=== PATIENT | male | born 1935 | race Caucasian/White ===

== ENCOUNTER 2016-04-11 05:12 | Inpatient (IN) | payer MEDICARE, OTHER ==
[2016-04-11] VITALS (8 sets, daily range): BP systolic 123–159; BP diastolic 74–85; PULSE 72–87; RESP 18–20; Ht 170.2 cm; Wt 71.4 kg
[~2016-04-11] VITALS: Ht 170.2 cm; Wt 71.4 kg
[~2016-04-11 05:12] MED LIST: AMLO-218; BENA40TA41; METO-103; SOLI10TA5
[2016-04-11] MEDS ORDERED: ENALAPRILAT 1.25 MG INJ IV ONE (05:30)
[2016-04-11] MEDS ORDERED: NITROGLYCERIN 50 MG/D5W (PMX) 250 ML IV STA (05:39)
[2016-04-11 05:42] LABS: AADO2 Arterial 203.7 mmHg (7.0-24.0); Allen Test ACCEPTAB; Arterial Base Excess -0.8 mmol/L (-3.0-3); Arterial COHb 0.2 % (0.0-3.0); Arterial Fraction of Oxyhgb 97.4 % (93.0-99.0); Arterial HCO3 24.7 mmol/L (22.0-26.0); Arterial MetHb 0.3 % (0.0-1.5); Arterial Total Hemglobin 15.9 g/dl (12.0-18.0); Blood Gas IEPAP 18/5; MODE MASK - BIPAP
--- NOTE | 2016-04-11 05:49 | RADRPT ---
PROCEDURE: CHEST - 1 VIEW CLINICAL INDICATION: 80-year-old male with chest pain. TECHNIQUE: A single frontal AP view of the chest was performed portably. The images were reviewed on a PACS workstation. COMPARISON: None. FINDINGS: The cardiomediastinal silhouette is mildly enlarged. The thoracic aortic arch is calcified. There is mild pulmonary vascular congestion. There is elevation right hemidiaphragm. There is mild bibas ilar subsegmental atelectasis. There is no evidence for focal consolidation. There is no evidence f or pneumothorax. The osseous structures are intact. IMPRESSION: 1. Cardiomegaly. 2. Calcified thoracic aortic arch. 3. Mild pulmonary vascular congestion. 4. Mild bibasilar subsegmental atelectasis. .Sid Cobian MD, Date Time Electronically viewed and signed by .Sid Cobian MD, on 04/11/2016 05:48 .M/
[2016-04-11 05:58] LABS: BASOPHIL # 0.1 10^3/ul (0.0-0.1); BASOPHILS % 0.6 % (0.0-2.0); EOSINOPHILS # 0.2 10^3/ul (0.0-0.5); EOSINOPHILS % 2.9 % (0.0-7.0); HEMATOCRIT 45.1 % (42.0-52.0); HEMOGLOBIN 15.4 g/dl (14.0-18.0); LYMPHOCYTES % 23.7 % (15.0-51.0); MEAN CORPUSCULAR HEMOGLOBIN 32.5 pg (29.0-33.0); MEAN CORPUSCULAR HGB CONC 34.1 g/dl (32.0-37.0); MEAN CORPUSCULAR VOLUME 95.3 fl (82.0-101.0); MEAN PLATELET VOLUME 10.3 fl (7.4-10.4); MONOCYTE # 0.8 10^3/ul (0.3-0.9); MONOCYTES % 9.4 % (0.0-11.0); NEUTROPHIL # 5.4 10^3/ul (1.6-7.5); NEUTROPHILS % 63.4 % (39.0-77.0); PLATELET COUNT 168 10^3/UL (140-440); RED BLOOD COUNT 4.73 10^6/ul (4.70-6.10); RED CELL DISTRIBUTION WIDTH 14.6 % (11.5-14.5); UNCORRECTED WBC 8.5 10^3/ul (4.8-10.8); WHITE BLOOD COUNT 8.5 10^3/ul (4.8-10.8)
[2016-04-11] MEDS ORDERED: ONDANSETRON 4 MG INJ IV PRN ×2 (06:00→07:30)
[2016-04-11] MEDS ORDERED: ACETAMINOPHEN 325 MG TAB PO PRN ×2 (06:00→07:30)
[2016-04-11] MEDS ORDERED: NITROGLYCERIN 2% 1 GM OINT PKT TD ONE (06:00)
[2016-04-11 06:07] LABS: CONDITION 1; CREATININE 1.08 mg/dl (0.61-1.24); LH ANALYZER COMMENTS 1
--- NOTE | 2016-04-11 06:10 | ERA ---
ER Documentation Chief Complaint Date/Time DATE: 04/11/16 TIME: 06:06 Chief Complaint sob HPI This is an 80-year-old male who presents to the emergency room for evaluation of shortness of breath. This patient was brought in by ambulance. According to EMS this patient was 84% on room air for his oxygen level. The patient is on medications for high blood pressure however he states that he ran out of his medications 3 days ago. EMS did hear audible wheezing and rales in place the patient on a breathing treatment and brought the patient in for evaluation. The patient states he is feeling slightly better at this time, he denies any active chest pain. ROS All systems reviewed and are negative except as per history of present illness. Medications Home Meds Reported Medications Amlodipine Besylate* (Norvasc*) 10 Mg Tablet 08/16/10 Solifenacin* (Vesicare*) 10 Mg Tablet 10/10/09 Metoprolol Succinate (Toprol Xl) 50 Mg Tab.sr.24h 10/10/09 Benazepril Hcl* (Benazepril Hcl*) 40 Mg Tablet 10/10/09 Allergies Allergies: Coded Allergies: No Known Drug Allergies (Verified Allergy, Mild, 08/29/13) PMhx/Soc History of Surgery: Yes (brain surgery) Anesthesia Reaction: No Hx Respiratory Disorders: No Hx Cardiac Disorders: No Hx Psychiatric Problems: No Hx Miscellaneous Medical Probl: Yes (HTN, abdominal hernia, cva, inguinal hernia) Hx Alcohol Use: No Hx Substance Use: No Hx Tobacco Use: No Smoking Status: Never smoker Physical Exam Vitals Vital Signs Date Time Temp Pulse Resp B/P Pulse Ox O2 Delivery O2 Flow Rate FiO2 04/11/16 06:00 87 22 122/90 99 BIPAP 04/11/16 05:25 96 95 50 04/11/16 05:19 97.1 99 29 180/115 95 Physical Exam INITIAL VITAL SIGNS: Reviewed by me GENERAL: The patient is frail-appearing older gentleman, moderate respiratory distress HEENT: Pupils equal, round, and reactive to light. EOMI. There is no scleral icterus. NECK: C-spine is soft and supple, there is no meningismus. There is no cervical lymphadenopathy. LUNGS: Coarse breath sounds in all lung chapman rales auscultated in the upper and lower lobe HEART: Tachycardic, no murmurs, clicks, rubs or gallops. ABDOMEN: Reducible periumbilical hernia, accessory muscle use, soft, non-tender , non-distended. There are bowel sounds in all four quadrants. No rebound or guarding. EXTREMITIES: There is no peripheral cyanosis or edema. No focal swelling or erythema. NEUROLOGICAL: The patient moves all four extremities with 5/5 strength. Cranial nerves II - XII are intact. Normal gait. Alert and oriented SKIN: There is no apparent rash or petechiae. HEME/LYMPHATIC: There is no evidence of excessive bruising or lymphedema. PSYCHIATRIC: The patient does not appear anxious or depressed. Results 24 hrs Laboratory Tests Test 04/11/16 05:27 Arterial Blood HCO3 24.7mmol/L Arterial Blood Base Excess -0.8mmol/L Arterial Blood Oxygen Saturation 97.9mmHG Presley Test ACCEPTAB Arterial Blood Gas Puncture Site Right Radial Arterial Blood Carboxyhemoglobin 0.2% Arterial Blood Date Drawn 04/11/2016 5:35:56 AM Arterial Blood Methemoglobin 0.3% Arterial Blood pCO2 (Temp correct) 44.2mmhg Arterial Blood pH (Temp corrected) 7.366 Arterial Blood pO2 (Temp corrected) 103.1mmHG Blood Gas A-a O2 Differential 203.7mmHg Blood Gas Actual Respiration Rate 22 Blood Gas IPAP/EPAP Ratio 18/5 Blood Gas Modality MASK - BIPAP Blood Gas Notified Time 04/11/2016 5:41:27 AM Blood Gas Notified Whom MH Blood Gas Respiration Rate 18.0 Blood Gas Specimen Source Blood arterial Blood Gas Temperature 37.0C FiO2 50.0% Oxyhemoglobin Percent 97.4% Total Hemoglobin 15.9g/dl Current Medications Medications (Trade) Dose Ordered Sig/Robin Route PRN Reason Start Time Stop Time Status Last Admin Dose Admin Enalaprilat 0.625 mg 0.625 mg ONCE ONCE IV 04/11/16 05:30 04/11/16 05:31 DC 04/11/16 05:28 Nitroglycerin/ Dextrose (Nitroglycerin 50 Mg/D5W (Pmx)) 250 ml @ 6 mls/hr ONCE STAT IV 04/11/16 05:39 04/11/16 05:44 DC Nitroglycerin (Nitroglycerin 2% Oint) 0.5 inch ONCE ONCE TD 04/11/16 06:00 04/11/16 06:01 DC 04/11/16 05:58 Ondansetron HCl (Zofran Inj) 4 mg ER BRIDGE PRN IV NAUSEA AND/OR VOMITING 04/11/16 06:00 04/12/16 05:59 Acetaminophen (Tylenol Tab) 650 mg ER BRIDGE PRN PO MILD PAIN/FEVER 04/11/16 06:00 04/12/16 05:59 Procedures/MDM EKG: Rate/Rhythm: Sinus tachycardia QRS, ST, T-waves: [No changes consistent w/ acute ischemia] Impression: [No evidence of ischemia or arrhythmia] Chest X-ray 1V Interpreted by me: Soft Tissue: Pulmonary vascular congestion with pulmonary edema Bones: No acute abnormalities Mediastinum/Cardiac Silhouette/Lungs: [No acute abnormalities] This 80-year-old male presents to the ER for evaluation of shortness of breath. When I evaluated him this patient was tachypnea, tachycardic, and hypoxic with an oxygen level of 88% on room air. This patient was immediately placed on a BiPAP. He was given Vasotec, and Nitropaste was applied on this patient as he was hypertensive and hypoxic. The patient's x-ray does show pulmonary vascular congestion and edema. I reevaluated this patient after being on BiPAP for 30 minutes and his pulse ox is 100%. His blood pressure is 129/80 and he states he is feeling completely better at this time. This patient will be placed in for admission at this time for acute CHF with hypoxia and pulmonary edema. He will be admitted to her panel physician, Dr. Michelle Critical Care: Excluding all billable procedures Time: 33 minutes Treatments/Evaluations: Emergent and rapid respiratory assessment and management with continuous monitoring. Advanced airway equipment at the ready, while the patient's respiratory symptoms were stabilized. Departure Diagnosis: Primary Impression: Acute respiratory failure with hypoxia Additional Impression: Acute decompensated heart failure Condition: Serious JOSE ARMANDOLAYLA JOSHUA Apr 11, 2016 06:10
[2016-04-11 06:18] LABS: TROPONIN-I 0.043 ng/ml (0.00-0.12)
[2016-04-11 07:09] LABS: INR 1.13; PROTIME 14.5 Sec (12.2-14.2); PT RATIO 1.1
[2016-04-11 07:10] LABS: PARTIAL THROMBOPLASTIN TIME 25.1 Sec (25.0-35.0)
[2016-04-11] MEDS ORDERED: BENA40TA41 PO (07:18)
[2016-04-11] MEDS ORDERED: SOLI10TA5 PO (07:18)
[2016-04-11] MEDS ORDERED: ALBUTEROL/IPRATROPIUM (NEB) 3 ML AMP HHN PRN (07:30)
[2016-04-11] MEDS ORDERED: morphine 2 MG INJ IV PRN (07:30)
[2016-04-11] MEDS ORDERED: LORAZEPAM 2 MG INJ IV PRN (07:30)
[2016-04-11] MEDS ORDERED: NACL 0.9% 3 ML SYG IV SCH (07:30)
[2016-04-11 07:59] LABS: CK-MB 2.68 ng/ml (0.0-2.4)
--- NOTE | 2016-04-11 08:01 | HP ---
DATE OF ADMISSION: 04/11/2016 CHIEF COMPLAINT: Shortness of breath. HISTORY OF PRESENT ILLNESS: The patient is an 80-year-old male with a history of CVA and hypertensi on who presented to the emergency department with history of shortness of breath. He said his sympt oms have been going on for 3 days. He also stated he ran out of his home medications which include: 1. Norvasc. 2. Benazepril. 3. Metoprolol. 4. Vesicare. He denied any chest pain, cough, fever, chills, nausea, vomiting. When EMS arrived, he was found to be hypoxic with oxygen saturation of 84%, and reportedly he was also wheezing. The patient was giv en breathing treatments by EMS and was brought to the ER. Upon arrival, blood pressure was 180/115, heart rate 99, respiratory rate 29, temperature 97.1, oxygen saturation 95% on room air. He was gi christy Vasotec. Chest x-ray showed cardiomegaly and mild pulmonary vascular congestion and mild bibasi lar subsegmental atelectasis. The patient was also given nitroglycerin. As far as his laboratory r esults are concerned, his sodium was 146 and BUN 28. Otherwise, CBC and BMP are within normal limit s. First troponin is negative, and BNP is 5300. REVIEW OF SYSTEMS: Negative except as in the HPI. PAST MEDICAL HISTORY: As per HPI. PAST SURGICAL HISTORY: He had some type of brain surgery as well as inguinal hernia repair. ALLERGIES: NO KNOWN DRUG ALLERGIES. HOME 1. Amlodipine. 2. Benazepril. 3. Toprol-XL. 4. Vesicare. PHYSICAL EXAMINATION: VITAL SIGNS: Blood pressure 122/90, heart rate 87, respiratory rate 22, temperature 97.1, oxygen sa turation 99% on BiPAP 50% FIO2. GENERAL: Looks slightly uncomfortable on BiPAP. HEENT: No obvious head deformity. Pupils are reactive to light. Extraocular muscles intact. CARDIOVASCULAR: Slightly tachycardic with regular rhythm. LUNGS: Unable to fully assess because of the BiPAP but did not hear any wheezing. ABDOMEN: Soft, nontender. No grimaces noted. Positive bowel sounds. EXTREMITIES: No edema. NEUROLOGIC: He has left-sided weakness compared to the right. LABORATORY DATA: Pertinent positives as mentioned in the HPI. IMAGING: Chest x-ray results as mentioned in the HPI. IMPRESSION: 1. Shortness of breath, likely secondary to congestive heart failure. 2. Hypertension, blood pressure now at goal. 3. History of cerebrovascular accident with left-sided residual weakness. 4. Mild hypernatremia. PLAN: We will admit to telemetry unit. He will be placed on Lasix. We will obtain a 2D echo. The last echo here was 6 years ago, and at that time he had a preserved EF of 65%. He will also be frank [place] on as needed bronchodilators. He will be put on oxygen. We will consider cardiology consultati on based on echo results. We will trend his troponin given this could be new onset CHF. His blood pressure is within goal. He will be continued with his home medication with adjustment as needed. We will correct electrolytes as needed. Further workup and management per clinical course. Dictated By: TEODORA MORALES/MARIN Conf#: [id number] DID#: [id number]
[2016-04-11 08:02] LABS: TROPONIN-I 0.034 ng/ml (0.00-0.12)
[2016-04-11] MEDS: HEPARIN 5,000 UNIT/0.5 ML SYG SC SCH ×2 (09:00→20:57)
[2016-04-11] MEDS: FUROSEMIDE 20 MG INJ IV SCH (09:26)
[2016-04-11] MEDS: SOLIFENACIN 5 MG TAB PO SCH (09:26)
[2016-04-11] MEDS: BENAZEPRIL 40 MG TAB PO SCH (09:27)
--- NOTE | 2016-04-11 12:23 | QN ---
Documentation Comment The patient was seen and examined. Labs reviewed. Called cardiology consult. Plan of care was explained to the patient. Case discussed with Dr. Ferrer. MYRA VAUGHN NP Apr 11, 2016 12:23
[2016-04-11] MEDS ORDERED: hydrALAzine 20 MG INJ IV PRN (12:30)
--- NOTE | 2016-04-11 17:29 | RADRPT ---
Echocardiogram Report Patient Name: YASSINE STONE Gender: Male Date: 1935 Study Date: 11-Apr-2016 Vacuum Bottle Assembler: Yaima Crocker RDCS Location: [address] [place] [address]. Physician: TEODORA POMPA Quality: Good Procedures: Transthoracic echocardiogram with complete 2D, M-Mode, and doppler examination. Indications: Congestive Heart Failure. 2D/M Mode Doppler Measurement Value Normal Ranges Measurement Value Normal Ranges LVIDd 2D 4.0 3.5 - 5.6 cm RENETTA Vmax 0.5 cm2 LVIDs 2D 2.7 2.1 - 4.1 cm RENETTA VTI 0.4 cm2 FS 2D 34.4 % AV Mean Deshaun 3.8 m/sec LVPWd 2D 1.5 0.6 - 1.1 cm AV Mean PG 72.0 mmHg IVSd 2D 1.4 0.6 - 1.1 cm AV Peak Deshaun 5.6 m/sec IVS/LVPW 2D 1.0 AV Peak PG 127.0 mmHg AoR Diam 2D 2.0 2.0 - 3.7 cm AV VTI 124.0 cm LA/Ao 2D 2 0 - 1 AI Peak PG 24.0 mmHg EDV 2D 65.9 cm3 AI Peak Deshaun 2.4 m/sec ESV 2D 18.6 cm3 AI PHT 694.0 msec LA Dimen 2D 3.7 2.3 - 4.0 cm LVOT Mean Deshaun 0.5 m/sec LVOT Diam 2.1 cm LVOT Mean PG 1.0 mmHg LVOT Area 3.5 cm2 LVOT Peak Deshaun 0.7 m/sec LVOT Peak PG 2.0 mmHg LVOT VTI 14.7 cm MV E Peak Deshaun 0.6 m/sec MV A Peak Deshaun 1.1 m/sec MV E/A 0.5 MV Decel Time 141 msec MV E/A 0.5 TR Peak Deshaun 2.4 m/sec TR Peak PG 23.0 mmHg RVSP 26.0 mmHg Findings Left Ventricle: Normal left ventricular systolic function. Normal left ventricular cavity size. Moderate concentric left ventricular hypertrophy. Ejection fraction is visually estimated at 5560 %. Tissue Doppler/Mitral Doppler indices are consistent with impaired relaxation (Stage I diastolic dysfunction). Right Ventricle: Normal right ventricular size. Normal right ventricular systolic function. Left Atrium: The left atrium is normal in size. Right Atrium: The right atrium is normal in size. Mitral Valve: Mitral valve leaflets appear mildly thickened. Mild mitral annular calcification. Trace mitral regurgitation. Aortic Valve: Severe aortic stenosis. Aortic valve Max velocity 5.76 m/sec. Max PG 133.00 mmHg. Mean PG 76.00 mmHg. Aortic valve area 0.38 cm2. Aortic cusps appear severely calcified. Mild to moderate aortic valve regurgitation. Tricuspid Valve: Normal appearance of the tricuspid valve. Estimated peak PA systolic pressure 26 mmHg. There is trace tricuspid regurgitation. Pericardium: Normal pericardium with no significant pericardial effusion. Aorta: Normal aortic root. IVC: Normal size and normal respiratory collapse consistent with normal right atrial pressure. Conclusions 1.The left ventricle is normal in size and systolic function. 2.Estimated left ventricular ejection fraction of 55-60%. 3.Moderate concentric left ventricular hypertrophy. Mild left ventricular diastolic dysfunction. 4.Severe aortic stenosis. Mild to moderate aortic regurgitation. Electronically Signed By: Luis Gilbert 11-Apr-2016 17:28:59 -0800 Patient Name: YASSINE STONE Study Date: 11-Apr-2016 [id number]
[2016-04-11 17:43] LABS: CK-MB 5.4 ng/ml (0.0-2.4)
[2016-04-11 17:45] LABS: TROPONIN-I 0.093 ng/ml (0.00-0.12)
--- NOTE | 2016-04-11 19:04 | CONS ---
Date/Time of Note Date/Time of Note DATE: 04/11/16 TIME: 18:54 Assessment/Plan Assessment/Plan Chief Complaint/Hosp Course Assessment: Acute on chronic diastolic heart failure - improved with blood pressure control and gentle diuresis Severe aortic stenosis Accelerated hypertension - blood pressures improved History of hemorrhagic stroke - residual left-sided weakness Recommendations: -echocardiogram showed LVEF 55-60%, moderate LVH, mild diastolic dysfunction, severe aortic stenosis -continue benazepril 40mg daily -continue gentle diuresis - Lasix 20mg IV daily -discussed natural history of aortic stenosis and treatment options -patient refuses surgical valve replacement, but may be amenable to transcatheter aortic valve replacement - he may be a candidate given residual deficits from prior stroke and increased surgical risk -patient provided contact information to make appointment with my office after discharge and continue evaluation for aortic valve replacement Problems: Consultation Date/Type/Reason Admit Date/Time Apr 11, 2016 at 05:50 Type of Consultation: Cardiology Reason for Consultation congestive heart failure Referring Provider: MYRA VAUGHN NP Hx of Present Illness The patient is an 80 year-old male who presented with a one day history of shortness of breath. He normally takes benazepril for hypertension, but he had run out of his medications. On presentation, his blood pressure was elevated at 180/115. His BNP was elevated at 5290 and chest x-ray showed pulmonary vascular congestion, consistent with congestive heart failure. He has subsequently been noted on echocardiogram to have severe aortic stenosis. He denies chest pain or syncope. 14 point review of systems negative other than per HPI. 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 Family History Significant Family History: other (noncontributory given advanced age) Social History Alcohol Use: none Smoking Status: Never smoker Drug Use: none Exam/Review of Systems Vital Signs Vitals Vital Signs Date Time Temp Pulse Resp B/P Pulse Ox O2 Delivery O2 Flow Rate FiO2 04/11/16 16:13 98.0 79 18 123/75 98 04/11/16 08:00 Room Air 04/11/16 08:00 2.0 04/11/16 05:25 50 Exam Constitutional: alert, well developed Psych: nl mood/affect, no complaints Head: atraumatic, normocephalic Eyes: nl conjunctiva, nl lids ENMT: nl external ears & nose, nl nasal mucosa & septum Neck: non-tender, supple, No jvd Respiratory: clear to auscultation, normal air movement Cardiovascular: regular rate and rhythm, systolic murmur Gastrointestinal: non-tender, soft Extremities: No clubbing, No cyanosis, No edema Neurological: focal weakness (left side) Results Result Diagram: 04/11/16 0510 04/11/16 0510 Results 24 hrs Laboratory Tests Test 04/11/16 05:10 04/11/16 05:22 04/11/16 05:23 04/11/16 05:27 Anion Gap 19 H B-Type Natriuretic Peptide 5290 H Basophils # 0.1 Basophils % 0.6 Blood Morphology Comment Blood Urea Nitrogen 28 H Calcium Level 9.0 Carbon Dioxide Level 28 Chloride Level 103 Creatine Kinase 50 Creatine Kinase Index 5.4 Creatinine 1.08 Creatinine Kinase MB (Mass) 2.68 H Eosinophils # 0.2 Eosinophils % 2.9 Glucose Level 132 Hematocrit 45.1 Hemoglobin 15.4 Lymphocytes # 2.0 Lymphocytes % 23.7 Mean Corpuscular Hemoglobin 32.5 Mean Corpuscular Hemoglobin Concent 34.1 Mean Corpuscular Volume 95.3 Mean Platelet Volume 10.3 Monocytes # 0.8 Monocytes % 9.4 Neutrophils # 5.4 Neutrophils % 63.4 Nucleated Red Blood Cells # 0.0 Nucleated Red Blood Cells % 0.0 Platelet Count 168 Potassium Level 4.0 Red Blood Count 4.73 Red Cell Distribution Width 14.6 H Sodium Level 146 H Troponin I 0.034 White Blood Count 8.5 Free Thyroxine 1.25 Thyroid Stimulating Hormone (TSH) 2.170 Hemoglobin A1c 4.9 Arterial Blood HCO3 24.7 Arterial Blood Base Excess -0.8 Arterial Blood Oxygen Saturation 97.9 Presley Test ACCEPTAB Arterial Blood Gas Puncture Site Right Radial Arterial Blood Carboxyhemoglobin 0.2 Arterial Blood Date Drawn 04/11/2016 5:35:56 AM Arterial Blood Methemoglobin 0.3 Arterial Blood pCO2 (Temp correct) 44.2 Arterial Blood pH (Temp corrected) 7.366 Arterial Blood pO2 (Temp corrected) 103.1 H Blood Gas A-a O2 Differential 203.7 H Blood Gas Actual Respiration Rate 22 Blood Gas IPAP/EPAP Ratio 18/5 Blood Gas Modality MASK - BIPAP Blood Gas Notified Time 04/11/2016 5:41:27 AM Blood Gas Notified Whom MH Blood Gas Respiration Rate 18.0 Blood Gas Specimen Source Blood arterial Blood Gas Temperature 37.0 FiO2 50.0 Oxyhemoglobin Percent 97.4 Total Hemoglobin 15.9 Test 04/11/16 06:30 04/11/16 17:05 Activated Partial Thromboplast Time 25.1 INR International Normalized Ratio 1.13 Prothrombin Time 14.5 H Prothrombin Time Ratio 1.1 Creatine Kinase 88 Creatine Kinase Index 6.1 Creatinine Kinase MB (Mass) 5.40 H Troponin I 0.093 Medications Medications Current Medications Lorazepam (Ativan) 0.5 mg Q6H PRN IV ANXIETY; Start 04/11/16 at 07:30 Ondansetron HCl (Zofran Inj) 4 mg Q6H PRN IV NAUSEA AND/OR VOMITING; Start at 07:30 Furosemide (Lasix) 20 mg DAILY@06 IV Last administered on 04/11/16 09:26; Admin Dose 20 MG; Start 04/11/16 at 06:00 Acetaminophen (Tylenol Tab) 650 mg Q6H PRN PO PAIN LEVEL 1-3 OR FEVER; Start at 07:30 Morphine Sulfate (morphine) 2 mg Q4H PRN IV PAIN LEVEL 7-10; Start 04/11/16 at 07:30 Heparin Sodium (Porcine) (Heparin (5000 Units/0.5 ml)) 5,000 unit Q12 SC ; Start 04/11/16 at 09:00 Benazepril HCl (Lotensin) 40 mg DAILY PO Last administered on 04/11/16 09:27; Admin Dose 40 MG; Start 04/11/16 at 09:00 Solifenacin (Vesicare) 10 mg DAILY PO Last administered on 04/11/16 09:26; Admin Dose 10 MG; Start 04/11/16 at 09:00 Hydralazine HCl (Apresoline) 10 mg Q6H PRN IV SBP>160; Start 04/11/16 at 12:30 Metoprolol Tartrate (Lopressor) 12.5 mg BID PO ; Start 04/11/16 at 21:00 RONEN BAIG MD Apr 11, 2016 19:04
[2016-04-11] MEDS: METOPROLOL 25 MG TAB PO SCH (20:58)
[2016-04-12] VITALS (9 sets, daily range): BP systolic 116–152; BP diastolic 76–79; PULSE 65–73; RESP 18–20
[2016-04-12] MEDS: FUROSEMIDE 20 MG INJ IV SCH (06:00)
[2016-04-12 06:39] LABS: BASOPHILS % 0.4 % (0.0-2.0); EOSINOPHILS # 0.2 10^3/ul (0.0-0.5); EOSINOPHILS % 2.2 % (0.0-7.0); HEMATOCRIT 40.5 % (42.0-52.0); HEMOGLOBIN 14.2 g/dl (14.0-18.0); LYMPHOCYTES # 1.1 10^3/ul (0.8-2.9); LYMPHOCYTES % 13.6 % (15.0-51.0); MEAN CORPUSCULAR HEMOGLOBIN 32.7 pg (29.0-33.0); MEAN CORPUSCULAR HGB CONC 35.2 g/dl (32.0-37.0); MEAN CORPUSCULAR VOLUME 93.1 fl (82.0-101.0); MEAN PLATELET VOLUME 10.3 fl (7.4-10.4); MONOCYTE # 1.1 10^3/ul (0.3-0.9); MONOCYTES % 13.5 % (0.0-11.0); NEUTROPHIL # 5.8 10^3/ul (1.6-7.5); NEUTROPHILS % 70.3 % (39.0-77.0); PLATELET COUNT 158 10^3/UL (140-440); RED BLOOD COUNT 4.35 10^6/ul (4.70-6.10); RED CELL DISTRIBUTION WIDTH 14.5 % (11.5-14.5); UNCORRECTED WBC 8.3 10^3/ul (4.8-10.8); WHITE BLOOD COUNT 8.3 10^3/ul (4.8-10.8)
[2016-04-12 06:43] LABS: CHOL/HDL RATIO 3.3 RATIO; MAGNESIUM 2.1 mg/dl (1.7-2.5); PHOSPHORUS 3.6 mg/dl (2.5-4.9)
[2016-04-12 06:53] LABS: ALBUMIN 3.8 g/dl (3.3-4.9)
[2016-04-12 06:54] LABS: POTASSIUM 4.7 mmol/L (3.5-5.1)
[2016-04-12 06:56] LABS: ALBUMIN/GLOBULIN RATIO 1.22; BILIRUBIN,INDIRECT 0.6 mg/dl (0-1.1); BILIRUBIN,TOTAL 0.6 mg/dl (0.2-1.3); CREATININE 1.15 mg/dl (0.61-1.24); TOTAL PROTEIN 6.9 g/dl (6.1-8.1)
[2016-04-12 06:57] LABS: CALCIUM 9.3 mg/dl (8.4-10.2)
[2016-04-12 06:59] LABS: CONDITION 1; LH ANALYZER COMMENTS 1
[2016-04-12] MEDS: METOPROLOL 25 MG TAB PO SCH (08:19)
[2016-04-12] MEDS: BENAZEPRIL 40 MG TAB PO SCH (08:19)
[2016-04-12] MEDS: SOLIFENACIN 5 MG TAB PO SCH (08:19)
[2016-04-12] MEDS: HEPARIN 5,000 UNIT/0.5 ML SYG SC SCH (08:28)
--- NOTE | 2016-04-12 12:48 | RADRPT ---
PROCEDURE: XR Chest. CLINICAL INDICATION: Infiltrate TECHNIQUE: Single AP portable chest COMPARISON: None. FINDINGS: The cardiomediastinal silhouette is within normal limits. Atherosclerotic calcification of the aorti c arch .The lungs are clear though pleural effusion or focal consolidation. No pneumothorax. The oss eous structures and soft tissues are unremarkable. IMPRESSION: 1. No evidence for active cardiopulmonary disease. RPTAT:AAJJ Gulshan Peck Physician Date Time Electronically viewed and signed by Gulshan Peck Physician on 04/12/2016 12:48 DIMITRY/
--- NOTE | 2016-04-12 14:28 | PDOCDIS ---
Discharge Instructions DIAGNOSIS Discharge Diagnosis: Severe aortic stenosis. Diastolic heart failure. CONDITION Patient Condition: Stable HOME CARE INSTRUCTIONS: Special Diet: Cardiac OTHER ORDERS: Other Orders: 1. Take medications as per prescription. 2. Follow-up with outpatient cardiology in 1 week. Arrange for percutaneous aortic valve replacement with outpatient cardiology. 3. Cardiac diet. 4. Resume activities as tolerated. 5. Call 911 or go to the nearest emergency room if you have significant chest pain or significant shortness of breath. MYRA VAUGHN NP Apr 12, 2016 14:28
[2016-04-12] MEDS ORDERED: FURO-110 PO (14:29)
--- NOTE | 2016-04-12 15:24 | CONS ---
Date/Time of Note Date/Time of Note DATE: 04/12/16 TIME: 15:23 Assessment/Plan Assessment/Plan Chief Complaint/Hosp Course Assessment: Acute on chronic diastolic heart failure - improved with blood pressure control and gentle diuresis Severe aortic stenosis Accelerated hypertension - blood pressures improved History of hemorrhagic stroke - residual left-sided weakness Recommendations: -echocardiogram showed LVEF 55-60%, moderate LVH, mild diastolic dysfunction, severe aortic stenosis -continue benazepril 40mg daily -discussed natural history of aortic stenosis and treatment options -patient refuses surgical valve replacement, but may be amenable to transcatheter aortic valve replacement - he may be a candidate given residual deficits from prior stroke and increased surgical risk -patient provided contact information to make appointment with my office after discharge and continue evaluation for aortic valve replacement Problems: Consultation Date/Type/Reason Admit Date/Time Apr 11, 2016 at 05:50 Initial Consult Date Type of Consultation: Cardiology 24 HR Interval Summary Free Text/Dictation Shortness of breath resolved. No chest pain. Detailed Summary Additional Comments 14 point review of systems without changes. Exam/Review of Systems Vital Signs Vitals Vital Signs Date Time Temp Pulse Resp B/P Pulse Ox O2 Delivery O2 Flow Rate FiO2 04/12/16 12:28 65 04/12/16 11:06 98.4 20 116/76 98 04/12/16 07:22 Nasal Cannula 2.0 04/11/16 05:25 50 Intake and Output 04/11/16 04/11/16 04/12/16 15:00 23:00 07:00 Intake Total 800 ml 400 ml Output Total 1300 ml 500 ml Balance -500 ml -100 ml Exam Constitutional: alert, well developed Psych: nl mood/affect, no complaints Head: atraumatic, normocephalic Eyes: nl conjunctiva, nl lids ENMT: nl external ears & nose, nl nasal mucosa & septum Neck: non-tender, supple, No jvd Respiratory: clear to auscultation, normal air movement Cardiovascular: regular rate and rhythm, systolic murmur Gastrointestinal: non-tender, soft Extremities: No clubbing, No cyanosis, No edema Neurological: focal weakness (left side) Results Result Diagram: 04/12/16 0545 04/12/16 0545 Results 24 hrs Laboratory Tests Test 04/11/16 17:05 04/12/16 05:45 Creatine Kinase 88 Creatine Kinase Index 6.1 Creatinine Kinase MB (Mass) 5.40 H Troponin I 0.093 Alanine Aminotransferase (ALT/SGPT) 30 Albumin 3.8 Albumin/Globulin Ratio 1.22 Alkaline Phosphatase 99 Anion Gap 16 Aspartate Amino Transf (AST/SGOT) 35 Basophils # 0.0 Basophils % 0.4 Blood Morphology Comment Blood Urea Nitrogen 30 H Calcium Level 9.3 Carbon Dioxide Level 30 Chloride Level 106 Cholesterol Level 130 Cholesterol/HDL Ratio 3.3 Creatinine 1.15 Direct Bilirubin 0.00 Eosinophils # 0.2 Eosinophils % 2.2 Globulin 3.10 Glucose Level 76 # HDL Cholesterol 39 Hematocrit 40.5 L Hemoglobin 14.2 Indirect Bilirubin 0.6 LDL Cholesterol, Calculated 81 Lymphocytes # 1.1 Lymphocytes % 13.6 L Magnesium Level 2.1 Mean Corpuscular Hemoglobin 32.7 Mean Corpuscular Hemoglobin Concent 35.2 Mean Corpuscular Volume 93.1 Mean Platelet Volume 10.3 Monocytes # 1.1 H Monocytes % 13.5 H Neutrophils # 5.8 Neutrophils % 70.3 Nucleated Red Blood Cells # 0.0 Nucleated Red Blood Cells % 0.0 Phosphorus Level 3.6 Platelet Count 158 Potassium Level 4.7 Red Blood Count 4.35 L Red Cell Distribution Width 14.5 Sodium Level 147 H Total Bilirubin 0.6 Total Protein 6.9 Triglycerides Level 49 White Blood Count 8.3 Medications Medications Current Medications Lorazepam (Ativan) 0.5 mg Q6H PRN IV ANXIETY; Start 04/11/16 at 07:30 Ondansetron HCl (Zofran Inj) 4 mg Q6H PRN IV NAUSEA AND/OR VOMITING; Start at 07:30 Furosemide (Lasix) 20 mg DAILY@06 IV Last administered on 04/12/16 06:00; Admin Dose 20 MG; Start 04/11/16 at 06:00 Acetaminophen (Tylenol Tab) 650 mg Q6H PRN PO PAIN LEVEL 1-3 OR FEVER; Start at 07:30 Morphine Sulfate (morphine) 2 mg Q4H PRN IV PAIN LEVEL 7-10; Start 04/11/16 at 07:30 Heparin Sodium (Porcine) (Heparin (5000 Units/0.5 ml)) 5,000 unit Q12 SC Last administered on 04/12/16 08:28; Admin Dose 5,000 UNIT; Start 04/11/16 at 09:00 Benazepril HCl (Lotensin) 40 mg DAILY PO Last administered on 04/12/16 08:19; Admin Dose 40 MG; Start 04/11/16 at 09:00 Solifenacin (Vesicare) 10 mg DAILY PO Last administered on 04/12/16 08:19; Admin Dose 10 MG; Start 04/11/16 at 09:00 Hydralazine HCl (Apresoline) 10 mg Q6H PRN IV SBP>160; Start 04/11/16 at 12:30 Metoprolol Tartrate (Lopressor) 12.5 mg BID PO Last administered on 04/12/16 08:19; Admin Dose 12.5 MG; Start 04/11/16 at 21:00 RONEN BAIG MD Apr 12, 2016 15:24
--- NOTE | 2016-04-12 21:11 | DS ---
DATE OF ADMISSION: 04/11/2016 DATE OF DISCHARGE: 04/12/2016 FINAL DIAGNOSES: 1. Tswog-[id number] congestive heart failure exacerbation. Diastolic dysfunction. 2. Severe aortic stenosis. 3. Essential hypertension. 4. Cerebrovascular accident with left-sided residual weakness. CONSULTATIONS: Luis Gilbert MD/Cardiology. HOSPITAL COURSE: This is an 81-year-old male with a past medical history of essential hypertension and CVA with left-sided weakness, who came into the emergency room with chief complaint of dyspnea. The patient verbalized that he has been having these symptoms for the past 3 days. He also verbalized that he ran out of his medications. He denied any chest pain, cough, fever, chills, nausea, or vomiting. In the emergency room, the patient was noticed to be hypoxic and was also reportedly wheezing. In the emergency room, the patient was started on BiPAP therapy, with improvement in the patient's oxygenation levels. The patient was noticed to have BNP of 5300. The patient's chest x- ray showed pulmonary vascular congestion. Provided the patient's history of present illness, his comorbidities, and the diagnostic findings, a clinical decision was made to admit the patient to inpatient setting to have him further evaluated. The patient was admitted to inpatient telemetry floor. The patient was started on diuretics. He was started on supplemental oxygen. A cardiology consult was obtained. The patient was confirmed to have diastolic heart failure, that improved with IV Lasix. The patient's repeat chest x-ray showed almost complete clearance of the pulmonary vascular congestion. The patient's 2D echocardiogram also showed severe aortic stenosis with aortic valve area 0.38/cm2. Consequently, Cardiology recommended aortic valve replacement. However, the patient was refusing any open surgical intervention. Based on the patient's comorbidities, the patient could be a candidate for a TAVR. This was discussed with the patient. The patient was instructed to follow up in the outpatient search marketing specialist setting for possible TAVR in a tertiary care facility. The patient 's symptoms improved throughout the hospital course, and the patient was cleared by Cardiology to be discharged home. The patient was noticed to have severe debility with left-sided weakness. As per the patient, he has a caregiver who visits him on a daily basis. However, it was felt that the patient may not be safe at home. Therefore, a home health consult was ordered for home safety and home physical therapy evaluation. This was set up before the patient was discharged. DISCHARGE DISPOSITION/PLAN: The patient will be discharged home today. He was instructed to take medications as per prescription. He was instructed to follow up with Outpatient Cardiology in 1 week, to arrange for percutaneous aortic valve replacement with Outpatient Cardiology. The patient was instructed to follow a cardiac diet and to resume activities as tolerated. The patient was instructed to call 911 or go nearest emergency room if he has significant chest pain or significant shortness of breath. The patient verbalized understanding of his discharge instructions. CONDITION AT DISCHARGE: Stable. DISCHARGE MEDICATIONS: 1. Lasix 20 mg p.o. daily. 2. Benazepril 40 mg p.o. daily. 3. VESIcare 10 mg p.o. daily. PERTINENT LABORATORY AND DIAGNOSTIC DATA: 1. A 2D echocardiogram. Ejection fraction of 55% to 60%. Moderate left ventricular hypertrophy. Mild left ventricular diastolic dysfunction. Severe aortic stenosis. Mild to moderate aortic regurgitation. 2. Latest chest x-ray on 04/12/2016. No evidence of active cardiopulmonary disease. 3. Blood gas that was done on 50% FIO2 via BiPAP mask on 04/11/2016, pH 7.366, pCO2 44.2, pO2 103.1, bicarb 24.7, oxygen saturation 97.9. Base excess -0.8. 4. Latest CBC: WBC 8.3, hemoglobin 14.2, hematocrit 40.5, platelet count 158, 000. 5. Latest BMP: Sodium 147, potassium 4.7, chloride 106, carbon dioxide 30, anion gap 16, BUN 30, creatinine 1.15, glucose 106, calcium 9.3, phosphorus 3.6 , magnesium 2.1. Hemoglobin A1c 4.9. 6. Fast lipid panel: Triglycerides 49, total cholesterol 130, LDL 81, HDL 39. At this time, I would like to thank Dr. Gilbert for seeing the patient and providing clinical recommendations. The case and management of this patient was fully discussed with Dr. Ferrer. Approximately 40 minutes was spent on coordinating the discharge on this patient. MYRA FERRER MD, AM/NTS Conf#: [id number] DID#: [id number] MTDD
== END 2016-04-12 17:50 | disposition home or self-care (01) | DRG 292 ==
LOC: E/R 05:12 → TEL 05:50
PROVIDERS: ADMIT Internal Medicine; ATTEND Internal Medicine
DX: I11.0 Hypertensive heart disease with heart failure (principal); I69.354 Hemiplegia and hemiparesis following cerebral infarction affecting left non-dominant side; E87.0 Hyperosmolality and hypernatremia; I35.0 Nonrheumatic aortic (valve) stenosis; I50.33 Acute on chronic diastolic (congestive) heart failure
CPT/HCPCS: 36415; 36600; 71010; 80048; 80053; 80061; 82550; 82553; 82803; 83036; 83735; 83880; 84100; 84439; 84443; 84484; 85025; 85610; 85730; 93005; 93306; 94660; 96374; J1940

== ENCOUNTER 2017-02-08 04:19 | Inpatient (IN) | payer OTHER ==
[2017-02-08] VITALS (10 sets, daily range): BP systolic 114–134; BP diastolic 74–85; PULSE 68–87; RESP 18; TEMP 97.7; Ht 170.2 cm; Wt 77.7 kg
[~2017-02-08] VITALS: Ht 170.2 cm; Wt 77.7 kg
[~2017-02-08 04:19] MED LIST changes: -AMLO-218; -BENA40TA41; +BENA40TA41 PO; +FURO-110 PO; -METO-103; -SOLI10TA5; +SOLI10TA5 PO
[2017-02-08] MEDS ORDERED: NITROGLYCERIN (SL) 0.4 MG TAB SL ONE (04:30)
[2017-02-08] MEDS ORDERED: ASPIRIN 81 MG TAB PO ONE (04:30)
[2017-02-08] MEDS ORDERED: ENALAPRILAT 1.25 MG INJ IV ONE (04:30)
[2017-02-08] MEDS ORDERED: FUROSEMIDE 40 MG INJ IV ONE (04:30)
--- NOTE | 2017-02-08 04:30 | ERD ---
ER Documentation Chief Complaint Chief Complaint HPI 81-year-old man with a history of diastolic congestive heart failure brought in by EMS from home for sudden onset shortness of breath. EMS placed him on CPAP therapy with improvement, they also administered nitroglycerin spray. Patient denies chest pain, no fevers or chills, no cough, no headache or blurry vision. , No vomiting or diarrhea. Patient states he has been using his medications as prescribed. ROS All systems reviewed and are negative except as per history of present illness. Medications Home Meds Active Scripts Furosemide* (Lasix*) 20 Mg Tablet, 20 MG PO DAILY for 30 Days, TAB Prov:MYRA VAUGHN BACK SIZER 04/12/16 Reported Medications Solifenacin* (Vesicare*) 10 Mg Tablet, 10 MG PO DAILY, TAB 04/11/16 Benazepril Hcl* (Benazepril Hcl*) 40 Mg Tablet, 40 MG PO DAILY, #30 TAB 04/11/16 Allergies Allergies: Coded Allergies: No Known Drug Allergies (Verified Allergy, Mild, 04/11/16) PMhx/Soc Diastolic congestive heart failure with a left ventricular ejection fraction between 55 and 60%, aortic stenosis, essential hypertension, history of CVA with left-sided paresis, History of Surgery: Yes (2001 Stroke) Anesthesia Reaction: No Hx Neurological Disorder: No Hx Respiratory Disorders: No Hx Cardiac Disorders: No Hx Psychiatric Problems: No Hx Miscellaneous Medical Probl: No Hx Alcohol Use: No Hx Substance Use: No Hx Tobacco Use: No FmHx Family History: diabetes Physical Exam Vitals Vital Signs Date Time Temp Pulse Resp B/P Pulse Ox O2 Delivery O2 Flow Rate FiO2 02/08/17 04:30 97.7 104 31 161/119 99 BIPAP 02/08/17 04:26 99.9 99 29 138/94 97 02/08/17 04:25 105 100 50 Physical Exam GENERAL: Well-developed, well-nourished, dyspneic, tachypneic HEENT: Moist mucous membranes, pink conjunctiva, no cervical spine tenderness or step-off deformities, no goiter, no jaundice or icterus, extraocular movements intact without pain. NEURO: Alert and oriented 2, cranial nerves II through XII intact bilaterally, pupils equal round reactive to light, no focal deficits or facial asymmetry, sensation intact distally Strength 5/5 in upper and lower extremities bilaterally CARDIAC: Tachycardic and regular, no murmurs rubs or gallops LUNGS: Poor breath sounds bilaterally, crackles throughout, no wheezing or stridor ABDOMEN: Soft reducible ventral hernia, no rigidity or rebound, no psoas sign no obturator sign. Normoactive bowel sounds SKIN: Cool and dry to touch, no abrasions, contusions, or hematomas, no lacerations, no ecchymosis, no target lesions, and without ulcers EXTREMITIES: No clubbing cyanosis, 1+ pitting edema in the lower extremities bilaterally, calves are bilaterally symmetrical, no Homans sign, no popliteal cord sign. Distal pulses equal and bilateral PSYCH: Normal affect without agitation or irritability Result Diagram: 02/08/1744802/08/17448 Results 24 hrs Laboratory Tests Test 02/08/17 04:49 White Blood Count 9.510^3/ul Red Blood Count 4.8110^6/ul Hemoglobin 15.3g/dl Hematocrit 46.2% Mean Corpuscular Volume 96.0fl Mean Corpuscular Hemoglobin 31.8pg Mean Corpuscular Hemoglobin Concent 33.1g/dl Red Cell Distribution Width 13.2% Platelet Count 39547^3/UL Mean Platelet Volume 11.3fl Neutrophils % 70.7% Lymphocytes % 16.1% Monocytes % 9.2% Eosinophils % 3.3% Basophils % 0.5% Nucleated Red Blood Cells % 0.0/100WBC Neutrophils # 6.710^3/ul Lymphocytes # 1.510^3/ul Monocytes # 0.910^3/ul Eosinophils # 0.310^3/ul Basophils # 0.110^3/ul Nucleated Red Blood Cells # 0.010^3/ul Sodium Level 150mmol/L Potassium Level 3.6mmol/L Chloride Level 109mmol/L Carbon Dioxide Level 27mmol/L Anion Gap 18 Blood Urea Nitrogen 23mg/dl Creatinine 1.27mg/dl Glucose Level 167mg/dl Calcium Level 9.2mg/dl Total Bilirubin 0.8mg/dl Direct Bilirubin 0.00mg/dl Indirect Bilirubin 0.8mg/dl Aspartate Amino Transf (AST/SGOT) 24IU/L Alanine Aminotransferase (ALT/SGPT) 22IU/L Alkaline Phosphatase 133IU/L Troponin I Pending B-Type Natriuretic Peptide Pending Total Protein 8.1g/dl Albumin 4.1g/dl Globulin 4.00g/dl Albumin/Globulin Ratio 1.02 Lipase 84U/L Current Medications Medications (Trade) Dose Ordered Sig/Robin Route PRN Reason Start Time Stop Time Status Last Admin Dose Admin Aspirin (Aspirin) 324 mg ONCE ONCE PO 02/08/17 04:30 02/08/17 04:31 DC 02/08/17 04:30 Enalaprilat (Vasotec Iv) 1.25 mg ONCE ONCE IV 02/08/17 04:30 02/08/17 04:31 DC 02/08/17 04:35 Nitroglycerin (Nitroglycerin (Sl Tab) 0.4 Mg) 1 tab ONCE ONCE SL 02/08/17 04:30 02/08/17 04:31 DC 02/08/17 04:36 Furosemide (Lasix) 80 mg ONCE ONCE IV 02/08/17 04:30 02/08/17 04:31 DC 02/08/17 04:40 Procedures/MDM IV line was established patient was placed on playground monitor rhythm strip revealed a sinus tachycardia at 130 bpm with upright P and T waves. Patient was afebrile BiPAP was immediately started. I administered aspirin 324 mg p.o. for cardioprotective measures, enalapril 1.25 mg IV for severe hypertension, nitroglycerin 0.4 mg sublingual 1, furosemide 80 mg IV 1 EKG performed, read by me revealed a sinus tachycardia at 120 bpm, normal axis, narrow QRS complex with T-wave inversions in anterolateral leads, no concerning ST elevations or depressions noted. One view chest x-ray performed, read by me he has cardiomegaly and bilateral pulmonary edema, severe, consistent with decompensated heart failure, no acute infiltrates, no pneumothorax. Critical Care: Time: 45 minutes, this was time separate from other billable procedures. Treatments/Evaluations: Close monitoring and treatment of unstable vital signs, cardiorespiratory, and neurologic status, while maintaining tight balance of fluid, respiratory, and cardiac interventions. CBC and electrolytes were within normal limits, liver function tests were normal , troponin was negative, BNP elevated. Patient admitted to telemetry setting for continued medical management cardiology consultation. Departure Diagnosis: Primary Impression: Hypertensive emergency Additional Impressions: Acute respiratory failure Respiratory failure complication: hypoxia and hypercapnia Qualified Code: J96.01 - Acute respiratory failure with hypoxia and hypercapnia Acute CHF Congestive heart failure type: diastolic Qualified Code: I50.31 - Acute diastolic congestive heart failure Condition: Serious RICO STERLING MD Feb 08, 2017 04:30
[2017-02-08 04:59] LABS: BASOPHIL # 0.1 10^3/ul (0.0-0.1); BASOPHILS % 0.5 % (0.0-2.0); EOSINOPHILS # 0.3 10^3/ul (0.0-0.5); EOSINOPHILS % 3.3 % (0.0-7.0); HEMATOCRIT 46.2 % (42.0-52.0); HEMOGLOBIN 15.3 g/dl (14.0-18.0); LYMPHOCYTES # 1.5 10^3/ul (0.8-2.9); LYMPHOCYTES % 16.1 % (15.0-51.0); MEAN CORPUSCULAR HEMOGLOBIN 31.8 pg (29.0-33.0); MEAN CORPUSCULAR HGB CONC 33.1 g/dl (32.0-37.0); MEAN PLATELET VOLUME 11.3 fl (7.4-10.4); MONOCYTE # 0.9 10^3/ul (0.3-0.9); MONOCYTES % 9.2 % (0.0-11.0); NEUTROPHIL # 6.7 10^3/ul (1.6-7.5); NEUTROPHILS % 70.7 % (39.0-77.0); PLATELET COUNT 156 10^3/UL (140-415); RED BLOOD COUNT 4.81 10^6/ul (4.70-6.10); RED CELL DISTRIBUTION WIDTH 13.2 % (11.5-14.5); WHITE BLOOD COUNT 9.5 10^3/ul (4.8-10.8)
[2017-02-08 05:20] LABS: ALBUMIN 4.1 g/dl (3.3-4.9); ALBUMIN/GLOBULIN RATIO 1.02; BILIRUBIN,INDIRECT 0.8 mg/dl (0-1.1); BILIRUBIN,TOTAL 0.8 mg/dl (0.2-1.3); CALCIUM 9.2 mg/dl (8.4-10.2); CREATININE 1.27 mg/dl (0.61-1.24); POTASSIUM 3.6 mmol/L (3.5-5.1); TOTAL PROTEIN 8.1 g/dl (6.1-8.1)
[2017-02-08 05:28] LABS: TROPONIN-I 0.05 ng/ml (0.00-0.12)
--- NOTE | 2017-02-08 08:04 | RADRPT ---
PROCEDURE: XR Chest. CLINICAL INDICATION: Abdominal pain TECHNIQUE: AP Portable chest. COMPARISON: CR CHEST 04/12/2016; CR CHEST 04/11/2016 FINDINGS: The patient is rotated to the left. There is tubing artifact over the lateral right chest. The cardiomediastinal silhouette is enlarged. The aortic arch is calcified. There are extensive bila teral ground-glass opacities and probable bibasilar atelectasis.. No pneumothorax is seen. The osse ous structures are intact. IMPRESSION: Pulmonary edema. Underlying infiltrate is not excluded. Cardiomegaly. Aortic atherosclerosis. Physician Makeda Date Time Electronically viewed and signed by Physician Makeda on 02/08/2017 08:04 CS/
[2017-02-08] MEDS ORDERED: NITROGLYCERIN (SL) 0.4 MG TAB SL PRN (09:30)
[2017-02-08] MEDS ORDERED: LORAZEPAM 0.5 MG TAB PO PRN (09:30)
[2017-02-08] MEDS ORDERED: ONDANSETRON 4 MG INJ IV PRN (09:30)
[2017-02-08] MEDS ORDERED: NACL 0.9% 3 ML SYG IV SCH (09:30)
[2017-02-08] MEDS ORDERED: morphine 2 MG INJ IV PRN (09:30)
[2017-02-08] MEDS ORDERED: ALBUTEROL/IPRATROPIUM (NEB) 3 ML AMP HHN PRN (09:30)
[2017-02-08] MEDS ORDERED: FUROSEMIDE 20 MG INJ IV SCH ×2 (09:30→21:00)
[2017-02-08] MEDS ORDERED: ACETAMINOPHEN 325 MG TAB PO PRN (09:30)
--- NOTE | 2017-02-08 09:34 | HP ---
Date/Time of Note Date/Time of Note DATE: 02/08/17 TIME: 09:28 Assessment/Plan VTE Prophylaxis VTE Prophylaxis Intervention: heparin Assessment/Plan Assessment/Plan 1. CHF exacerbation -IV Lasix -Monitor urine output -2D echo -Cardiology consult 2. Severe aortic stenosis, per echo almost a year ago -During her previous admission, patient refused open heart surgery to address -Will place cardiology consult -Continue home cardiac medications adjustment as needed 3. Presumed acute kidney injury -If no improvement, will place a nephrology consult and also obtain a renal ultrasound 4. History of CVA -Continue antiplatelet and statin HPI/ROS Admit Date/Time Admit Date/Time Feb 08, 2017 at 05:13 Hx of Present Illness This is an 81-year-old male with history of CHF, severe aortic stenosis, hypertension, CVA who presented to the ER complaining of shortness of breath. Symptoms been progressively getting worse but acutely worsened prior to arrival to ER. Denied chest pain. Chest x-ray in the ER showed a pulmonary edema. Patient was admitted here almost a year ago in March of this year. At that time he was found to have severe aortic stenosis. Cardiology recommended aortic valve surgery but patient refused. PMH/Family/Social Social History Smoking Status: Never smoker Exam/Review of Systems Vital Signs Vitals Vital Signs Date Time Temp Pulse Resp B/P Pulse Ox O2 Delivery O2 Flow Rate FiO2 02/08/17 08:00 87 02/08/17 07:45 98.7 18 114/74 94 02/08/17 06:00 Room Air 02/08/17 04:25 50 Exam Constitutional: other (No acute distress) Head: atraumatic, normocephalic Eyes: EOMI, PERRL Respiratory: diminished breath sounds Cardiovascular: nl pulses, regular rate and rhythm Gastrointestinal: non-tender, soft Extremities: normal pulses Labs Result Diagram: 02/08/17 0449 02/08/17 0449 Medications Medications Current Medications Lorazepam (Ativan) 0.5 mg Q8H PRN PO ANXIETY; Start 02/08/17 at 09:30; Status UNV Ondansetron HCl (Zofran Inj) 4 mg Q6H PRN IV NAUSEA AND/OR VOMITING; Start at 09:30; Status UNV Nitroglycerin (Nitroglycerin (Sl Tab) 0.4 Mg) 1 tab Q5M PRN SL CHEST PAIN; Start 02/08/17 at 09:30; Status UNV Acetaminophen (Tylenol Tab) 650 mg Q6H PRN PO PAIN LEVEL 1-3 OR FEVER; Start 02/08/17 at 09:30; Status UNV Morphine Sulfate (morphine) 2 mg Q4H PRN IV PAIN LEVEL 7-10; Start 02/08/17 at 09:30; Status UNV Heparin Sodium (Porcine) (Heparin (5000 Units/0.5 ml)) 5,000 unit Q12 SC ; Start 02/08/17 at 21:00; Status UNV Benazepril HCl (Lotensin) 40 mg DAILY PO ; Start 02/09/17 at 09:00; Status UNV Solifenacin (Vesicare) 10 mg DAILY PO ; Start 02/09/17 at 09:00; Status UNV Furosemide (Lasix) 20 mg DAILY IV ; Start 02/08/17 at 09:30; Status UNV TEODORA POMPA MD Feb 08, 2017 09:34
[2017-02-08 10:12] LABS: TROPONIN-I 0.101 ng/ml (0.00-0.12)
[2017-02-08 10:14] LABS: CK-MB 2.95 ng/ml (0.0-2.4)
--- NOTE | 2017-02-08 11:58 | CONS ---
Date/Time of Note Date/Time of Note DATE: 02/08/17 TIME: 11:57 Assessment/Plan Assessment/Plan Additional Assessment/Plan 81 yo with Diast HF, AoS - now with mild CHF - responded to lasix- will hold now with incr Cr - outpt [facility] eval advised. Full note dictated tnx Consultation Date/Type/Reason Admit Date/Time Feb 08, 2017 at 05:13 Initial Consult Date Exam/Review of Systems Vital Signs Vitals Vital Signs Date Time Temp Pulse Resp B/P Pulse Ox O2 Delivery O2 Flow Rate FiO2 02/08/17 11:41 98.4 76 18 121/85 93 02/08/17 06:00 Room Air 02/08/17 04:25 50 Results Result Diagram: 02/08/17 0449 02/08/17 0449 Results 24 hrs Laboratory Tests Test 02/08/17 04:49 02/08/17 09:36 White Blood Count 9.5 Red Blood Count 4.81 Hemoglobin 15.3 Hematocrit 46.2 Mean Corpuscular Volume 96.0 Mean Corpuscular Hemoglobin 31.8 Mean Corpuscular Hemoglobin Concent 33.1 Red Cell Distribution Width 13.2 Platelet Count 156 Mean Platelet Volume 11.3 H Neutrophils % 70.7 Lymphocytes % 16.1 Monocytes % 9.2 Eosinophils % 3.3 Basophils % 0.5 Nucleated Red Blood Cells % 0.0 Neutrophils # 6.7 Lymphocytes # 1.5 Monocytes # 0.9 Eosinophils # 0.3 Basophils # 0.1 Nucleated Red Blood Cells # 0.0 Sodium Level 150 H Potassium Level 3.6 Chloride Level 109 Carbon Dioxide Level 27 Anion Gap 18 H Blood Urea Nitrogen 23 H Creatinine 1.27 H Glucose Level 167 Calcium Level 9.2 Total Bilirubin 0.8 Direct Bilirubin 0.00 Indirect Bilirubin 0.8 Aspartate Amino Transf (AST/SGOT) 24 Alanine Aminotransferase (ALT/SGPT) 22 Alkaline Phosphatase 133 H Troponin I 0.050 0.101 B-Type Natriuretic Peptide 73058 H Total Protein 8.1 Albumin 4.1 Globulin 4.00 H Albumin/Globulin Ratio 1.02 Lipase 84 Creatine Kinase 73 Creatine Kinase Index 4.0 Creatinine Kinase MB (Mass) 2.95 H Medications Medications Current Medications Lorazepam (Ativan) 0.5 mg Q8H PRN PO ANXIETY; Start 02/08/17 at 09:30 Ondansetron HCl (Zofran Inj) 4 mg Q6H PRN IV NAUSEA AND/OR VOMITING; Start at 09:30 Nitroglycerin (Nitroglycerin (Sl Tab) 0.4 Mg) 1 tab Q5M PRN SL CHEST PAIN; Start 02/08/17 at 09:30 Acetaminophen (Tylenol Tab) 650 mg Q6H PRN PO PAIN LEVEL 1-3 OR FEVER; Start 02/08/17 at 09:30 Morphine Sulfate (morphine) 2 mg Q4H PRN IV PAIN LEVEL 7-10; Start 02/08/17 at 09:30 Heparin Sodium (Porcine) (Heparin (5000 Units/0.5 ml)) 5,000 unit Q12 SC ; Start 02/08/17 at 21:00 Benazepril HCl (Lotensin) 40 mg DAILY PO ; Start 02/09/17 at 09:00 Solifenacin (Vesicare) 10 mg DAILY PO ; Start 02/09/17 at 09:00 Furosemide (Lasix) 20 mg DAILY IV Last administered on 02/08/17t 10:08; Admin Dose 20 MG; Start 02/08/17 at 09:30 Furosemide (Lasix) 20 mg QHS IV ; Start 02/08/17 at 21:00 DEMETRIS CONTRERAS MD Feb 08, 2017 11:58
--- NOTE | 2017-02-08 13:53 | CONS ---
DATE OF ADMISSION: 02/08/2017 DATE OF CONSULTATION: 02/08/2017 TYPE OF CONSULTATION: Cardiology. REFERRING PHYSICIAN: Dr. Michelle. REASON FOR EVALUATION: Shortness of breath, aortic stenosis. HISTORY OF PRESENT ILLNESS: The patient is a delightful 81-year-old gentleman with history of hypert ension, dyslipidemia, prior history of CVA with preserved ejection fraction, history of renal insuff iciency, history of aortic stenosis which is known severe prior comes to the hospital now for evalua tion of shortness of breath. The patient is doing better since coming to the hospital. She receive d some Lasix with appropriate diuresis. Blood pressure is much better controlled now. Per records here patient had aortic stenosis which is known severe, he was referred for surgery prior. The teo ent would be a good candidate for TRINIDAD type of procedure; however, will monitor for now. As this ca nnot be done in this hospital. For now, conservative therapy is expected. We will continue to opti tiff fluid status. Patient diuresed well. Will decrease diuresis for now to avoid hypotension. ALLERGIES: NO KNOWN DRUG ALLERGIES. SOCIAL HISTORY: He does not smoke, does not drink, does not use drugs. FAMILY HISTORY: Negative for sudden cardiac or premature coronary artery disease. MEDICATIONS: Here include: 1. Benazepril 40 mg p.o. once a day. 2. VESIcare. 3. Lasix 20 mg IV. 4. Lorazepam. 5. Nitroglycerin. 6. Morphine sulfate. REVIEW OF SYSTEMS: CONSTITUTIONAL: No fevers, no chills, no shortness of breath. HEENT: No change in vision or hearing. RESPIRATORY: Reported shortness of breath, chronic, better. GASTROINTESTINAL: No nausea, vomiting, diarrhea, constipation. GENITOURINARY: No dysuria, hematuria. NEUROLOGIC: No focal neurologic deficits. PSYCHIATRIC: No psychiatric illness. PHYSICAL EXAMINATION: VITAL SIGNS: Temperature is 98.4, heart rate 60s, blood pressure 131/85. GENERAL: He is a thin gentleman in no acute distress, alert and oriented x3, aware of his condition . HEAD: Head is normocephalic, atraumatic. Eyes anicteric. NECK: Supple. JVD 6-7 cm. There is no lymphadenopathy. HEART: Regular with soft holosystolic murmur at the base with delayed upstroke. There is also holo systolic murmur at the apex. LUNGS: Coarse at bases. ABDOMEN: Distended, bowel sounds are present. There is no hepatosplenomegaly. GENITOURINARY: Grossly intact. The patient has right scrotal enlargement with hernia. There is no lower extremity edema. LABORATORY DATA: White blood count 9.5, hemoglobin 15.3, platelets 156. INR is 1.23. Sodium 150, potassium 3.6, his BUN is 23, creatinine 0.127. Troponin is negative at 0.01. ASSESSMENT AND PLAN: 1. Aortic stenosis. The patient with severe aortic stenosis, has been a prior discussion about tamiko gical intervention. I think the patient would be an excellent candidate for TRINIDAD and he ought to be evaluated as an outpatient. 2. Congestive heart failure. The patient with heart failure, acute on chronic. He appears to be r esponding well to diuresis. Will hold Lasix now as I am worried that the patient might be over diur esed. 3. Hypertension. Blood pressure well optimized now. Continue medical therapy and optimization is warranted. 4. Prior history of CVA. The patient has appropriate therapy recovered well with good mentation. Continue to monitor. 5. Acute renal failure. Creatinine is 1.15 to 1.27 hold off additional Lasix now. I would like to thank Dr. Michelle for referring this patient for my evaluation. Dictated By: DEMETRIS CONTRERAS MD ML/NTS Conf#: [id number] DID#: [id number] CC: DEMETRIS CONTRERAS MD; TEODORA MICHELLE MD;*[facility]*
[2017-02-08 14:36] LABS: CALCIUM 8.7 mg/dl (8.4-10.2); CREATININE 1.2 mg/dl (0.61-1.24); POTASSIUM 3.5 mmol/L (3.5-5.1)
[2017-02-08 15:47] LABS: TROPONIN-I 0.093 ng/ml (0.00-0.12)
[2017-02-08 15:58] LABS: CK-MB 3.56 ng/ml (0.0-2.4)
[2017-02-08] MEDS: HEPARIN 5,000 UNIT/0.5 ML VIAL SC SCH (20:30)
[2017-02-09] VITALS (13 sets, daily range): BP systolic 125–155; BP diastolic 62–96; PULSE 58–77; RESP 17–18
[2017-02-09 07:24] LABS: BASOPHIL # 0.1 10^3/ul (0.0-0.1); BASOPHILS % 0.7 % (0.0-2.0); EOSINOPHILS # 0.2 10^3/ul (0.0-0.5); EOSINOPHILS % 3.1 % (0.0-7.0); HEMOGLOBIN 14.5 g/dl (14.0-18.0); LYMPHOCYTES # 1.2 10^3/ul (0.8-2.9); LYMPHOCYTES % 17.1 % (15.0-51.0); MEAN CORPUSCULAR HEMOGLOBIN 31.7 pg (29.0-33.0); MEAN CORPUSCULAR HGB CONC 34.5 g/dl (32.0-37.0); MEAN CORPUSCULAR VOLUME 91.7 fl (82.0-101.0); MEAN PLATELET VOLUME 11.7 fl (7.4-10.4); MONOCYTE # 0.9 10^3/ul (0.3-0.9); MONOCYTES % 12.3 % (0.0-11.0); NEUTROPHIL # 4.7 10^3/ul (1.6-7.5); NEUTROPHILS % 66.7 % (39.0-77.0); PLATELET COUNT 147 10^3/UL (140-415); RED BLOOD COUNT 4.58 10^6/ul (4.70-6.10); RED CELL DISTRIBUTION WIDTH 13.2 % (11.5-14.5); WHITE BLOOD COUNT 7.1 10^3/ul (4.8-10.8)
[2017-02-09 07:46] LABS: MAGNESIUM 1.9 mg/dl (1.7-2.5); PHOSPHORUS 3.2 mg/dl (2.5-4.9)
[2017-02-09 07:51] LABS: ALBUMIN 3.7 g/dl (3.3-4.9); BILIRUBIN,INDIRECT 1.1 mg/dl (0-1.1); BILIRUBIN,TOTAL 1.1 mg/dl (0.2-1.3); CALCIUM 8.9 mg/dl (8.4-10.2); CHOL/HDL RATIO 4.1 RATIO; CREATININE 1.04 mg/dl (0.61-1.24); POTASSIUM 3.7 mmol/L (3.5-5.1); TOTAL PROTEIN 7.4 g/dl (6.1-8.1)
[2017-02-09 08:19] LABS: THYROID STIMULATING HORMONE 1.46 MIU/L (0.465-4.680)
[2017-02-09] MEDS: SOLIFENACIN 5 MG TAB PO SCH (08:40)
[2017-02-09] MEDS: BENAZEPRIL 40 MG TAB PO SCH (08:41)
[2017-02-09] MEDS: HEPARIN 5,000 UNIT/0.5 ML VIAL SC SCH ×2 (08:42→21:30)
--- NOTE | 2017-02-09 17:18 | PN ---
Date/Time of Note Date/Time of Note DATE: 02/09/17 TIME: 17:17 Assessment/Plan VTE Prophylaxis VTE Prophylaxis Intervention: LMWH Lines/Catheters IV Catheter Type (from [facility]): [facility] Urinary Cath still in place: No Assessment/Plan Chief Complaint/Hosp Course 81 yo male wtih acute disastolic CHF exacerbation 2/2 severe aortic stenosis - Continue PO diuretics chornically - Patient needs TAVR evaluation, now agrees to it - Will dc tomorrow per his request Problems: Subjective 24 Hr Interval Summary Free Text/Dictation Doing very well today Now expressing interest in TAVR after long discussion Wants to be dsicharged tomorrow Exam/Review of Systems Vital Signs Vitals Vital Signs Date Time Temp Pulse Resp B/P Pulse Ox O2 Delivery O2 Flow Rate FiO2 02/09/17 16:25 73 02/09/17 15:52 98.4 18 140/94 96 02/09/17 04:50 Room Air 02/08/17 04:25 50 Intake and Output 02/08/17 02/08/17 02/09/17 15:00 23:00 07:00 Intake Total 450 ml 300 ml Output Total 1900 ml 850 ml Balance -1450 ml -550 ml Exam Constitutional: alert, oriented, well developed Psych: nl mood/affect, no complaints Head: atraumatic, normocephalic Eyes: EOMI, PERRL, nl conjunctiva, nl lids, nl sclera ENMT: nl external ears & nose, nl lips & teeth, nl nasal mucosa & septum Neck: non-tender, supple Respiratory: clear to auscultation, normal air movement Cardiovascular: nl pulses, regular rate and rhythm Gastrointestinal: nl liver, spleen, non-tender, soft Musculoskeletal: nl extremities to inspection, nl gait and stance Extremities: normal pulses Neurological: AUTOMATED WEAVER II-XII intact, nl mental status, nl speech, nl strength Skin: nl turgor, No rash or lesions Lymph: nl lymph nodes Results Result Diagram: 02/09/17 0703 02/09/17 0704 Results 24 hrs Laboratory Tests Test 02/09/17 07:03 02/09/17 07:04 White Blood Count 7.1 # Red Blood Count 4.58 L Hemoglobin 14.5 Hematocrit 42.0 Mean Corpuscular Volume 91.7 Mean Corpuscular Hemoglobin 31.7 Mean Corpuscular Hemoglobin Concent 34.5 Red Cell Distribution Width 13.2 Platelet Count 147 Mean Platelet Volume 11.7 H Neutrophils % 66.7 Lymphocytes % 17.1 Monocytes % 12.3 H Eosinophils % 3.1 Basophils % 0.7 Nucleated Red Blood Cells % 0.0 Neutrophils # 4.7 Lymphocytes # 1.2 Monocytes # 0.9 Eosinophils # 0.2 Basophils # 0.1 Nucleated Red Blood Cells # 0.0 Hemoglobin A1c 4.8 Phosphorus Level 3.2 Magnesium Level 1.9 B-Type Natriuretic Peptide 8060 H Sodium Level 144 Potassium Level 3.7 Chloride Level 105 Carbon Dioxide Level 29 Anion Gap 14 Blood Urea Nitrogen 25 H Creatinine 1.04 Glucose Level 107 Calcium Level 8.9 Total Bilirubin 1.1 Direct Bilirubin 0.00 Indirect Bilirubin 1.1 Aspartate Amino Transf (AST/SGOT) 26 Alanine Aminotransferase (ALT/SGPT) 29 Alkaline Phosphatase 102 Total Protein 7.4 Albumin 3.7 Globulin 3.70 H Albumin/Globulin Ratio 1.00 Triglycerides Level 66 Cholesterol Level 146 LDL Cholesterol, Calculated 98 HDL Cholesterol 35 Cholesterol/HDL Ratio 4.1 Thyroid Stimulating Hormone (TSH) 1.460 Medications Medications Current Medications Lorazepam (Ativan) 0.5 mg Q8H PRN PO ANXIETY; Start 02/08/17 at 09:30 Ondansetron HCl (Zofran Inj) 4 mg Q6H PRN IV NAUSEA AND/OR VOMITING; Start at 09:30 Nitroglycerin (Nitroglycerin (Sl Tab) 0.4 Mg) 1 tab Q5M PRN SL CHEST PAIN; Start 02/08/17 at 09:30 Acetaminophen (Tylenol Tab) 650 mg Q6H PRN PO PAIN LEVEL 1-3 OR FEVER; Start 02/08/17 at 09:30 Morphine Sulfate (morphine) 2 mg Q4H PRN IV PAIN LEVEL 7-10; Start 02/08/17 at 09:30 Heparin Sodium (Porcine) (Heparin (5000 Units/0.5 ml)) 5,000 unit Q12 SC Last administered on 02/09/17 08:42; Admin Dose 5,000 UNIT; Start 02/08/17 at 21: 00 Benazepril HCl (Lotensin) 40 mg DAILY PO Last administered on 02/09/17 08:41 ; Admin Dose 40 MG; Start 02/09/17 at 09:00 Solifenacin (Vesicare) 10 mg DAILY PO Last administered on 02/09/17 08:40; Admin Dose 10 MG; Start 02/09/17 at 09:00 Furosemide (Lasix) 20 mg DAILY IV Last administered on 02/08/17 10:08; Admin Dose 20 MG; Start 02/08/17 at 09:30; Status Future Hold EDUARD ROSALES MD Feb 09, 2017 17:18
--- NOTE | 2017-02-09 20:25 | CONS ---
Date/Time of Note Date/Time of Note DATE: 02/09/17 TIME: 20:18 Assessment/Plan Assessment/Plan Chief Complaint/Hosp Course IMP: 1. Aortic stenosis-severe by echo 03/2016 2.CHF-diastolic acute on chronic by echo. trop negative x 3 3.shortness of breath-secondary to CHF now improved 4.HTN Recc: -Tele -Continue benazapeil -start BB to allow optimal time for systolic ejection and diastolic filling -outpatient eval for TAVR versus open procedure -start low dose standing lasix Problems: Consultation Date/Type/Reason Admit Date/Time Feb 08, 2017 at 05:13 Initial Consult Date 02/08/2017 Type of Consultation: cardiology Reason for Consultation CHF/ Referring Provider: JOE ESCOTO Exam/Review of Systems Vital Signs Vitals Vital Signs Date Time Temp Pulse Resp B/P Pulse Ox O2 Delivery O2 Flow Rate FiO2 02/09/17 16:25 73 02/09/17 15:52 98.4 18 140/94 96 02/09/17 04:50 Room Air 02/08/17 04:25 50 Intake and Output 02/08/17 02/08/17 02/09/17 14:59 22:59 06:59 Intake Total 450 ml 300 ml Output Total 1900 ml 850 ml Balance -1450 ml -550 ml Exam Review of Systems: CONSTITUTIONAL: No fevers, chills. PULMONARY: No sob CARDIOVASCULAR: No chest pain/palpitations GASTROINTESTINAL: No nausea/vomiting. GENITOURINARY: No hematuria/dysuria. MUSCULOSKELETAL: No myagias/arthalgias. PSYCHIATRIC: The patient denies depression. NEUROLOGIC: No weakness Constitutional: alert Psych: no complaints Head: normocephalic ENMT: mucosa pink and moist Neck: jvd (9 cm water), supple Respiratory: diminished breath sounds (at bases/B) Cardiovascular: murmurs/extra sounds (3/6 SM to carotids), regular rate and rhythm Gastrointestinal: non-tender, soft Musculoskeletal: muscle tone (normal) Extremities: edema (none) Neurological: other (NO focal deficits) Results Result Diagram: 02/09/17 0703 02/09/17 0704 Results 24 hrs Laboratory Tests Test 02/09/17 07:03 02/09/17 07:04 White Blood Count 7.1 # Red Blood Count 4.58 L Hemoglobin 14.5 Hematocrit 42.0 Mean Corpuscular Volume 91.7 Mean Corpuscular Hemoglobin 31.7 Mean Corpuscular Hemoglobin Concent 34.5 Red Cell Distribution Width 13.2 Platelet Count 147 Mean Platelet Volume 11.7 H Neutrophils % 66.7 Lymphocytes % 17.1 Monocytes % 12.3 H Eosinophils % 3.1 Basophils % 0.7 Nucleated Red Blood Cells % 0.0 Neutrophils # 4.7 Lymphocytes # 1.2 Monocytes # 0.9 Eosinophils # 0.2 Basophils # 0.1 Nucleated Red Blood Cells # 0.0 Hemoglobin A1c 4.8 Phosphorus Level 3.2 Magnesium Level 1.9 B-Type Natriuretic Peptide 8060 H Sodium Level 144 Potassium Level 3.7 Chloride Level 105 Carbon Dioxide Level 29 Anion Gap 14 Blood Urea Nitrogen 25 H Creatinine 1.04 Glucose Level 107 Calcium Level 8.9 Total Bilirubin 1.1 Direct Bilirubin 0.00 Indirect Bilirubin 1.1 Aspartate Amino Transf (AST/SGOT) 26 Alanine Aminotransferase (ALT/SGPT) 29 Alkaline Phosphatase 102 Total Protein 7.4 Albumin 3.7 Globulin 3.70 H Albumin/Globulin Ratio 1.00 Triglycerides Level 66 Cholesterol Level 146 LDL Cholesterol, Calculated 98 HDL Cholesterol 35 Cholesterol/HDL Ratio 4.1 Thyroid Stimulating Hormone (TSH) 1.460 Medications Medications Current Medications Lorazepam (Ativan) 0.5 mg Q8H PRN PO ANXIETY; Start 02/08/17 at 09:30 Ondansetron HCl (Zofran Inj) 4 mg Q6H PRN IV NAUSEA AND/OR VOMITING; Start at 09:30 Nitroglycerin (Nitroglycerin (Sl Tab) 0.4 Mg) 1 tab Q5M PRN SL CHEST PAIN; Start 02/08/17 at 09:30 Acetaminophen (Tylenol Tab) 650 mg Q6H PRN PO PAIN LEVEL 1-3 OR FEVER; Start 02/08/17 at 09:30 Morphine Sulfate (morphine) 2 mg Q4H PRN IV PAIN LEVEL 7-10; Start 02/08/17 at 09:30 Heparin Sodium (Porcine) (Heparin (5000 Units/0.5 ml)) 5,000 unit Q12 SC Last administered on 02/09/17t 08:42; Admin Dose 5,000 UNIT; Start 02/08/17 at 21: 00 Benazepril HCl (Lotensin) 40 mg DAILY PO Last administered on 02/09/17 08:41 ; Admin Dose 40 MG; Start 02/09/17 at 09:00 Solifenacin (Vesicare) 10 mg DAILY PO Last administered on 02/09/17 08:40; Admin Dose 10 MG; Start 02/09/17 at 09:00 Furosemide (Lasix) 20 mg DAILY IV Last administered on 02/08/17 10:08; Admin Dose 20 MG; Start 02/08/17 at 09:30; Status Future Hold DEMIAN SULLIVAN Feb 09, 2017 20:25
[2017-02-09] MEDS: METOPROLOL 25 MG TAB PO SCH (21:37)
--- NOTE | 2017-02-09 21:47 | RADRPT ---
Echocardiogram Report ADDENDUM Patient Name: YASSINE STONE Gender: Male Date: 1935 Study Date: 08-Feb-2017 Flight Steward: SCOTT Location: I Ref. Physician: TEODORA POMPA Quality: Adequate Procedures: Transthoracic echocardiogram with 2D, M-Mode, and Doppler examination. Indications: Congestive Heart Failure. 2D/M Mode Doppler Measurement Value Normal Ranges Measurement Value Normal Ranges AoR Diam MM 3.4 cm RENETTA Vmax 0.3 cm2 LVIDd 2D 4.4 3.5 - 5.6 cm RENETTA VTI 0.3 cm2 LVIDs 2D 3.5 2.1 - 4.1 cm AV Mean Deshaun 3.6 m/sec LVPWd 2D 1.5 0.6 - 1.1 cm AV Mean PG 60.3 mmHg IVSd 2D 1.6 0.6 - 1.1 cm AV Peak Deshaun 5.1 m/sec EDV 2D 87.4 cm3 AV Peak PG 105.9 mmHg ESV 2D 44.7 cm3 AV VTI 107.5 cm LA Dimen 2D 3.6 2.3 - 4.0 cm LVOT Mean Deshaun 0.4 m/sec LVOT Diam 2.0 cm LVOT Mean PG 0.9 mmHg LVOT Peak Deshaun 0.6 m/sec LVOT Peak PG 1.4 mmHg LVOT VTI 13.1 cm TR Peak Deshaun 2.3 m/sec TR Peak PG 21.3 mmHg RVSP 24.3 mmHg Findings Left Ventricle: Normal left ventricular cavity size. Severe concentric left ventricular hypertrophy. Moderate left ventricular systolic dysfunction. Ejection fraction is visually estimated at 40 %. Abnormal Diastolic Function. E/E`=28. Right Ventricle: Normal right ventricular size. Normal right ventricular systolic function. Left Atrium: The left atrium is normal in size. Right Atrium: The right atrium is normal in size. Atrial Septum: Normal atrial septum. Mitral Valve: Normal appearance of the mitral valve. Trace mitral regurgitation. Aortic Valve: Critical aortic stenosis. Aortic valve Max velocity 5.20 m/sec. Max PG 106.00 mmHg. Mean PG 60.00 mmHg. Aortic valve area 0.40 cm2. Aortic cusps appear severely calcified. Tricuspid Valve: Normal appearance of the tricuspid valve. Estimated peak PA systolic pressure 24 mmHg. There is trace tricuspid regurgitation. Pulmonic Valve: Pulmonic valve not well visualized. Pericardium: Normal pericardium with no significant pericardial effusion. No pleural effusion noted. Aorta: Normal aortic root. IVC: Normal size and normal respiratory collapse consistent with normal right atrial pressure. Pulmonary Artery: Not well visualized. Conclusions 1.Normal left ventricular cavity size. Severe concentric left ventricular hypertrophy. Moderate left ventricular systolic dysfunction. Ejection fraction is visually estimated at 40 %. Abnormal Diastolic Function. E/E`=28. 2.Critical aortic stenosis. Aortic valve Max velocity 5.20 m/sec. Max PG 106.00 mmHg. Mean PG 60.00 mmHg. Aortic valve area 0.40 cm2. Aortic cusps appear severely calcified. 3.Normal appearance of the mitral valve. Trace mitral regurgitation. 4.Normal appearance of the tricuspid valve. Estimated peak PA systolic pressure 24 mmHg. There is trace tricuspid regurgitation. Electronically Signed By: Moe Cornejo 09-Feb-2017 22:25:04 -0800 [ADDENDUM] Patient Name: YASSINE STONE Study Date: 08-Feb-2017 [id number]
[2017-02-10] VITALS (9 sets, daily range): BP systolic 116–151; BP diastolic 78–94; PULSE 56–69; RESP 17–18
[2017-02-10] MEDS: HEPARIN 5,000 UNIT/0.5 ML VIAL SC SCH (08:40)
[2017-02-10] MEDS: METOPROLOL 25 MG TAB PO SCH (08:41)
[2017-02-10] MEDS: BENAZEPRIL 40 MG TAB PO SCH (08:41)
--- NOTE | 2017-02-10 08:59 | CONS ---
Date/Time of Note Date/Time of Note DATE: 02/10/17 TIME: 08:58 Assessment/Plan Assessment/Plan Additional Assessment/Plan 1. Aortic stenosis. The patient with severe aortic stenosis, has been a prior discussion about surgical intervention. I think the patient would be an excellent candidate for TRINIDAD and he ought to be evaluated as an outpatient. 2. Congestive heart failure. The patient with heart failure, acute on chronic. He appears to be responding well to diuresis. Will hold Lasix now as I am worried that the patient might be over diuresed. BETTER with diuresis. 3. Hypertension. Blood pressure well optimized now. Continue medical therapy and optimization is warranted. WELL RX now. 4. Prior history of CVA. The patient has appropriate therapy recovered well with good mentation. Continue to monitor. MED RX. 5. Acute renal failure. Creatinine is 1.15 to 1.27 hold off additional Lasix now. STABLE OVERALL. Consultation Date/Type/Reason Admit Date/Time Feb 08, 2017 at 05:13 Type of Consultation: cardiology Referring Provider: JOE ESCOTO 24 HR Interval Summary Free Text/Dictation NO acute events - no ectopy on tele - con't Med Rx now. ROS: No fever, no chills, no nausea, no vomiting, no diarrhea/constipation No recent weight changes No chest pain, no PND, no orthopnea No dizziness, blurred vision No thirst, no heat or cold intolerance Exam/Review of Systems Vital Signs Vitals Vital Signs Date Time Temp Pulse Resp B/P Pulse Ox O2 Delivery O2 Flow Rate FiO2 02/10/17 07:51 99.0 72 18 143/94 95 02/09/17 04:50 Room Air 02/08/17 04:25 50 Intake and Output 02/09/17 02/09/17 02/10/17 15:00 23:00 07:00 Intake Total 750 ml 500 ml Output Total 600 ml Balance 750 ml -100 ml Exam General: WN/WD/NAD, AOx 3 HEENT: Unicetric/atraumatic/EOMI (follows commands) NECK: JVD elevated, no thyromegaly Lymph: no lymphadenopathy HEART: regular with no S3, II/ systolic murmur at apex, 2/6 at base LUNGS: Coarse sounds ABD: soft, NT, ND, +BS : Intact Neuro: non focal SKIN: chronic changes EXT: trace edema Results Result Diagram: 02/09/1703 02/09/17 0704 Medications Medications Current Medications Lorazepam (Ativan) 0.5 mg Q8H PRN PO ANXIETY; Start 02/08/17 at 09:30 Ondansetron HCl (Zofran Inj) 4 mg Q6H PRN IV NAUSEA AND/OR VOMITING; Start at 09:30 Nitroglycerin (Nitroglycerin (Sl Tab) 0.4 Mg) 1 tab Q5M PRN SL CHEST PAIN; Start 02/08/17 at 09:30 Acetaminophen (Tylenol Tab) 650 mg Q6H PRN PO PAIN LEVEL 1-3 OR FEVER; Start 02/08/17 at 09:30 Morphine Sulfate (morphine) 2 mg Q4H PRN IV PAIN LEVEL 7-10; Start 02/08/17 at 09:30 Heparin Sodium (Porcine) (Heparin (5000 Units/0.5 ml)) 5,000 unit Q12 SC Last administered on 02/10/17 08:40; Admin Dose 5,000 UNIT; Start 02/08/17 at 21: 00 Benazepril HCl (Lotensin) 40 mg DAILY PO Last administered on 02/10/17 08:41 ; Admin Dose 40 MG; Start 02/09/17 at 09:00 Solifenacin (Vesicare) 10 mg DAILY PO Last administered on 02/09/17 08:40; Admin Dose 10 MG; Start 02/09/17 at 09:00 Furosemide (Lasix) 20 mg DAILY PO Last administered on 02/10/17 08:41; Admin Dose 20 MG; Start 02/10/17 at 09:00 Metoprolol Tartrate (Lopressor) 25 mg BID PO Last administered on 02/10/17 08 :41; Admin Dose 25 MG; Start 02/09/17 at 21:00 DEMETRIS CONTRERAS MD Feb 10, 2017 08:59
[2017-02-10] MEDS ORDERED: FUROSEMIDE 20 MG TAB PO SCH (09:00)
[2017-02-10] MEDS: SOLIFENACIN 5 MG TAB PO SCH (09:00)
[2017-02-10 13:30] LABS: CALCIUM 8.9 mg/dl (8.4-10.2); CREATININE 1.06 mg/dl (0.61-1.24); MAGNESIUM 2.1 mg/dl (1.7-2.5); PHOSPHORUS 3.6 mg/dl (2.5-4.9); POTASSIUM 3.7 mmol/L (3.5-5.1)
--- NOTE | 2017-02-10 14:07 | PN ---
Date/Time of Note Date/Time of Note DATE: 02/10/17 TIME: 13:53 Assessment/Plan VTE Prophylaxis VTE Prophylaxis Intervention: SCD's Lines/Catheters IV [facility]ter Type [facility]from [facility] Saline Lock Urinary Cath still in place: No Assessment/Plan Assessment/Plan 81-year-old man with: 1. CHF exacerbation with known severe valvular disease, aortic stenosis. Appreciate assistance from cardiology, patient now euvolemic status post diuresis, to be discharged home on daily small dose of Lasix Discussed with Dr. Dai, patient to be referred through [facility] as an outpatient for TAVR 2. Critical Aortic stenosis, confirmed on echocardiogram, patient to be referred as outpatient for TAVR per cardiology. Continue current medications. Follow-up with cardiology as an outpatient. 3. Acute kidney injury, renal function much improved and seems to be resolved so far. 4. Old CVA. Continue current antiplatelet and statin therapy. Prophylaxis: Heparin subcu for DVT prophylaxis, tolerating p.o. Disposition: Discharge home with outpatient follow-up with primary care physician and cardiology. Referral through [facility] to cardiothoracic surgery for TAVR. Subjective 24 Hr Interval Summary Free Text/Dictation Patient doing well today, able to lie flat, no signs of volume overload, euvolemic, renal function stable. Discussed with Dr. Dai, we will discharge home today with outpatient referral for TAVR given findings of critical aortic stenosis Exam/Review of Systems Vital Signs Vitals Vital Signs Date Time Temp Pulse Resp B/P Pulse Ox O2 Delivery O2 Flow Rate FiO2 02/10/17 12:06 65 02/10/17 11:55 98.5 17 116/78 94 02/09/17 04:50 Room Air 02/08/17 04:25 50 Intake and Output 02/09/17 02/09/17 02/10/17 15:00 23:00 07:00 Intake Total 750 ml 500 ml Output Total 600 ml Balance 750 ml -100 ml Exam Constitutional: alert, oriented, well developed Respiratory: clear to auscultation, normal air movement Cardiovascular: murmurs/extra sounds (Aortic valve stenosis), nl pulses, regular rate and rhythm Gastrointestinal: non-tender, soft Musculoskeletal: nl extremities to inspection, nl gait and stance, other (No edema, clubbing or cyanosis) Extremities: normal pulses Neurological: STOCK BUYER II-XII intact, nl mental status, nl speech, nl strength Results Result Diagram: 02/09/17 0703 02/10/17 1305 Results 24 hrs Laboratory Tests Test 02/10/17 13:05 Sodium Level 144 Potassium Level 3.7 Chloride Level 104 Carbon Dioxide Level 29 Anion Gap 15 Blood Urea Nitrogen 30 H Creatinine 1.06 Glucose Level 94 Calcium Level 8.9 Phosphorus Level 3.6 Magnesium Level 2.1 Medications Medications Current Medications Lorazepam (Ativan) 0.5 mg Q8H PRN PO ANXIETY; Start 02/08/17 at 09:30 Ondansetron HCl (Zofran Inj) 4 mg Q6H PRN IV NAUSEA AND/OR VOMITING; Start at 09:30 Nitroglycerin (Nitroglycerin (Sl Tab) 0.4 Mg) 1 tab Q5M PRN SL CHEST PAIN; Start 02/08/17 at 09:30 Acetaminophen (Tylenol Tab) 650 mg Q6H PRN PO PAIN LEVEL 1-3 OR FEVER; Start 02/08/17 at 09:30 Morphine Sulfate (morphine) 2 mg Q4H PRN IV PAIN LEVEL 7-10; Start 02/08/17 at 09:30 Heparin Sodium (Porcine) (Heparin (5000 Units/0.5 ml)) 5,000 unit Q12 SC Last administered on 02/10/17 08:40; Admin Dose 5,000 UNIT; Start 02/08/17 at 21: 00 Benazepril HCl (Lotensin) 40 mg DAILY PO Last administered on 02/10/17 08:41 ; Admin Dose 40 MG; Start 02/09/17 at 09:00 Solifenacin (Vesicare) 10 mg DAILY PO Last administered on 02/09/17 08:40; Admin Dose 10 MG; Start 02/09/17 at 09:00 Furosemide (Lasix) 20 mg DAILY PO Last administered on 02/10/17 08:41; Admin Dose 20 MG; Start 02/10/17 at 09:00 Metoprolol Tartrate (Lopressor) 25 mg BID PO Last administered on 02/10/17 08 :41; Admin Dose 25 MG; Start 02/09/17 at 21:00 Procedures Procedures Echocardiogram Report ADDENDUM Patient Name: YASSINE STONE Gender: Male Date: 1935 Study Date: 08-Feb-2017 Data Transcriber: SCOTT Location: I Ref. Physician: TEODORA POMPA Quality: Adequate Procedures: Transthoracic echocardiogram with 2D, M-Mode, and Doppler examination. Indications: Congestive Heart Failure. 2D/M Mode Doppler Measurement Value Normal Ranges Measurement Value Normal Ranges AoR Diam MM 3.4 cm RENETTA Vmax 0.3 cm2 LVIDd 2D 4.4 3.5 - 5.6 cm RENETTA VTI 0.3 cm2 LVIDs 2D 3.5 2.1 - 4.1 cm AV Mean Deshaun 3.6 m/sec LVPWd 2D 1.5 0.6 - 1.1 cm AV Mean PG 60.3 mmHg IVSd 2D 1.6 0.6 - 1.1 cm AV Peak Deshaun 5.1 m/sec EDV 2D 87.4 cm3 AV Peak PG 105.9 mmHg ESV 2D 44.7 cm3 AV VTI 107.5 cm LA Dimen 2D 3.6 2.3 - 4.0 cm LVOT Mean Deshaun 0.4 m/sec LVOT Diam 2.0 cm LVOT Mean PG 0.9 mmHg LVOT Peak Deshaun 0.6 m/sec LVOT Peak PG 1.4 mmHg LVOT VTI 13.1 cm TR Peak Deshaun 2.3 m/sec TR Peak PG 21.3 mmHg RVSP 24.3 mmHg Findings Left Ventricle: Normal left ventricular cavity size. Severe concentric left ventricular hypertrophy. Moderate left ventricular systolic dysfunction. Ejection fraction is visually estimated at 40 %. Abnormal Diastolic Function. E/E`=28. Right Ventricle: Normal right ventricular size. Normal right ventricular systolic function. Left Atrium: The left atrium is normal in size. Right Atrium: The right atrium is normal in size. Atrial Septum: Normal atrial septum. Mitral Valve: Normal appearance of the mitral valve. Trace mitral regurgitation. Aortic Valve: Critical aortic stenosis. Aortic valve Max velocity 5.20 m/sec. Max PG 106.00 mmHg. Mean PG 60.00 mmHg. Aortic valve area 0.40 cm2. Aortic cusps appear severely calcified. Tricuspid Valve: Normal appearance of the tricuspid valve. Estimated peak PA systolic pressure 24 mmHg. There is trace tricuspid regurgitation. Pulmonic Valve: Pulmonic valve not well visualized. Pericardium: Normal pericardium with no significant pericardial effusion. No pleural effusion noted. Aorta: Normal aortic root. IVC: Normal size and normal respiratory collapse consistent with normal right atrial pressure. Pulmonary Artery: Not well visualized. Conclusions 1. Normal left ventricular cavity size. Severe concentric left ventricular hypertrophy. Moderate left ventricular systolic dysfunction. Ejection fraction is visually estimated at 40 %. Abnormal Diastolic Function. E/E`=28. 2. Critical aortic stenosis. Aortic valve Max velocity 5.20 m/sec. Max PG 106.00 mmHg. Mean PG 60.00 mmHg. Aortic valve area 0.40 cm2. Aortic cusps appear severely calcified. 3. Normal appearance of the mitral valve. Trace mitral regurgitation. 4. Normal appearance of the tricuspid valve. Estimated peak PA systolic pressure 24 mmHg. There is trace tricuspid regurgitation. Electronically Signed By: Moe Cornjeo 09-Feb-2017 22:25:04 -0800 [ADDENDUM] NADIYA PABLO Feb 10, 2017 14:04
--- NOTE | 2017-02-10 14:08 | PDOCDIS ---
Discharge Instructions CONDITION Patient Condition: Stable HOME CARE INSTRUCTIONS: Diet Instructions: Low Fat /CholesterolSpecial Diet: 2 g sodium ACTIVITY: Activity Restrictions: Slowly Increase Activity FOLLOW UP/APPOINTMENTS Follow-up Plan Follow-up with primary care physician within 1 week Follow-up with cardiology within 1-2 weeks regarding CHF and critical aortic stenosis Referral through [facility] to outpatient interventional cardiology for evaluation for TAVR NADIYA PABLO Feb 10, 2017 14:08
[2017-02-10] MEDS ORDERED: LAS20 PO (14:10)
[2017-02-10] MEDS ORDERED: METO-448 PO (14:10)
--- NOTE | 2017-02-11 17:18 | DS ---
Date/Time of Note Date/Time of Note DATE: 02/11/17 TIME: 17:13 Discharge Summary Admission/Discharge Info Admit Date/Time Feb 08, 2017 at 05:13 Discharge Date/Time Feb 10, 2017 at 18:05 Discharge Diagnosis 1. CHF exacerbation with known systolic dysfunction and critical aortic stenosis. 2. Critical Aortic stenosis. 3. Acute kidney injury, resolved 4. Old CVA. Patient Condition: Stable Consults Cardiology, Dr. Dai Procedures None Hx of Present Illness 81-year-old male with history of CHF, severe aortic stenosis, hypertension, CVA who presented to the ER complaining of shortness of breath. Symptoms been progressively getting worse but acutely worsened prior to arrival to ER. Denied chest pain. Chest x-ray in the ER showed a pulmonary edema. Patient was admitted here almost a year ago in March of this year. At that time he was found to have severe aortic stenosis. Cardiology recommended aortic valve surgery but patient refused. Hospital Course Patient was seen by cardiology, Dr. Dai, repeat echocardiogram did show critical aortic stenosis. Ejection fraction 40%. Patient was diuresed, Lasix dose was adjusted to 20 mg p.o. daily at the time of discharge as patient was euvolemic. He has been referred to outpatient interventional cardiology for TAVR. Renal function was much improved and back to normal by the time of discharge. Home Meds Active Scripts Furosemide (Lasix) 20 Mg Tab, 20 MG PO DAILY for 30 Days, TAB 3 Refills Prov:NADIYA PABLO 02/10/17 Metoprolol Tartrate* (Lopressor*) 25 Mg Tab, 25 MG PO BID for 30 Days, TAB 3 Refills Prov:NADIYA PABLO 02/10/17 Reported Medications Solifenacin* (Vesicare*) 10 Mg Tablet, 10 MG PO DAILY, TAB 04/11/16 Benazepril Hcl* (Benazepril Hcl*) 40 Mg Tablet, 40 MG PO DAILY, #30 TAB 04/11/16 Discontinued Scripts Furosemide* (Lasix*) 20 Mg Tablet, 20 MG PO DAILY for 30 Days, TAB Prov:MYRA VAUGHN SCHEDULE PLANNING MANAGER 04/12/16 Follow-up Plan Follow-up with primary care physician within 1 week Follow-up with cardiology within 1-2 weeks regarding CHF and critical aortic stenosis Referral through [facility] to outpatient interventional cardiology for evaluation for TAVR Primary Care Provider Kelechi Zamora Time spent on discharge: > 30 minutes NADIYA PABLO Feb 11, 2017 17:18
== END 2017-02-10 18:05 | disposition home or self-care (01) | DRG 291 ==
LOC: E/R 04:19 → MS4 05:13
PROVIDERS: ADMIT Internal Medicine; ATTEND Internal Medicine
DX: I11.0 Hypertensive heart disease with heart failure (principal); J96.01 Acute respiratory failure with hypoxia; N17.9 Acute kidney failure, unspecified; I69.354 Hemiplegia and hemiparesis following cerebral infarction affecting left non-dominant side; I16.1 Hypertensive emergency; I50.33 Acute on chronic diastolic (congestive) heart failure; I35.0 Nonrheumatic aortic (valve) stenosis
CPT/HCPCS: 71010; 80048; 80053; 80061; 82550; 82553; 83036; 83690; 83735; 83880; 84100; 84443; 84484; 85025; 93005; 93306; 94660; 96374; 96375; J1940; J1644

== ENCOUNTER 2017-02-20 22:29 | Emergency (ER) | payer OTHER ==
[~2017-02-20] VITALS: Ht 167.6 cm; Wt 74.4 kg
[~2017-02-20 22:29] MED LIST changes: -FURO-110 PO; +LAS20 PO; +METO-448 PO
[2017-02-20 22:37] VITALS: Ht 167.6 cm; Wt 74.4 kg
--- NOTE | 2017-02-21 01:03 | ERD ---
ER Documentation Chief Complaint Chief Complaint I want to take my appendix out HPI The patient is a 81-year-old male, presenting to the ER because he wants to have his appendix out. He denies fever, chills, neck pain, chest pain, complains of intermittent abdominal discomfort due to dysuria for 1 week, denies diarrhea, complains of constipation. He does not smoke nor drink Medical history: History of CHF, aortic stenosis, history of CVA, hypertension, ventral hernia history of CVA Surgical history: Craniotomy ROS All systems reviewed and are negative except as per history of present illness. Medications Home Meds Active Scripts Ciprofloxacin Hcl* (Ciprofloxacin Hcl*) 500 Mg Tablet, 500 MG PO BID for 7 Days , TAB Prov:WESLYE WILLS MD 02/21/17 Furosemide (Lasix) 20 Mg Tab, 20 MG PO DAILY for 30 Days, TAB 3 Refills Prov:NADIYA PABLO 02/10/17 Metoprolol Tartrate* (Lopressor*) 25 Mg Tab, 25 MG PO BID for 30 Days, TAB 3 Refills Prov:NADIYA PABLO 02/10/17 Reported Medications Solifenacin* (Vesicare*) 10 Mg Tablet, 10 MG PO DAILY, TAB 04/11/16 Benazepril Hcl* (Benazepril Hcl*) 40 Mg Tablet, 40 MG PO DAILY, #30 TAB 04/11/16 Allergies Allergies: Coded Allergies: No Known Drug Allergies (Verified Allergy, Mild, 04/11/16) PMhx/Soc History of Surgery: Yes (crainotomy - 2001 ) Anesthesia Reaction: No Hx Neurological Disorder: Yes (hx of CVA -2001 (Left sided weakness)) Hx Respiratory Disorders: No Hx Cardiac Disorders: Yes (HTN, CHF, ) Hx Psychiatric Problems: No Hx Miscellaneous Medical Probl: Yes (Hernia) Hx Alcohol Use: No Hx Substance Use: No Hx Tobacco Use: No Physical Exam Vitals Vital Signs Date Time Temp Pulse Resp B/P Pulse Ox O2 Delivery O2 Flow Rate FiO2 02/21/17 03:35 97.0 78 20 124/76 96 Room Air 02/20/17 22:37 98.1 95 20 178/10 94 Physical Exam Const: No acute distress. Head: Atraumatic. Eyes: Normal Conjunctiva. ENT: Normal External Ears, Nose and Mouth. Neck: Full range of motion. No meningismus. Resp: Clear to auscultation bilaterally. Cardio: Regular rate and rhythm. Abd: Soft, non distended, normal bowel sounds, non tender. Skin: No petechiae or rashes. Back: No midline or flank tenderness. Ext: No cyanosis, or edema. Left-sided weakness Neur: Awake and alert. No focal deficit Psych: Normal Mood and Affect. Result Diagram: 02/21/17 0148 02/21/17 0148 Results 24 hrs Laboratory Tests Test 02/21/17 01:20 02/21/17 01:48 Urine Color SAJAN Urine Clarity HAZY Urine pH 8.0 Urine Specific [place] 1.020 Urine Ketones TRACEmg/dL Urine Nitrite POSITIVEmg/dL Urine Bilirubin NEGATIVEmg/dL Urine Urobilinogen 2.0 E.U./dLmg/dL Urine Leukocyte Esterase 1+Daphne/ul Urine Microscopic RBC 103/HPF Urine Microscopic WBC > 182/HPF Urine Bacteria FEW/HPF Urine Mucus FEW/HPF Urine Hemoglobin 3+mg/dL Urine Glucose 0.1%mg/dL Urine Total Protein 4+mg/dl White Blood Count 9.210^3/ul Red Blood Count 4.0810^6/ul Hemoglobin 13.0g/dl Hematocrit 38.7% Mean Corpuscular Volume 94.9fl Mean Corpuscular Hemoglobin 31.9pg Mean Corpuscular Hemoglobin Concent 33.6g/dl Red Cell Distribution Width 13.1% Platelet Count 07012^3/UL Mean Platelet Volume 11.6fl Neutrophils % 73.2% Lymphocytes % 10.9% Monocytes % 13.9% Eosinophils % 1.3% Basophils % 0.5% Nucleated Red Blood Cells % 0.0/100WBC Neutrophils # 6.710^3/ul Lymphocytes # 1.010^3/ul Monocytes # 1.310^3/ul Eosinophils # 0.110^3/ul Basophils # 0.110^3/ul Nucleated Red Blood Cells # 0.010^3/ul Sodium Level 144mmol/L Potassium Level 4.0mmol/L Chloride Level 107mmol/L Carbon Dioxide Level 31mmol/L Anion Gap 10 Blood Urea Nitrogen 37mg/dl Creatinine 1.23mg/dl Glucose Level 118mg/dl Calcium Level 9.3mg/dl Total Bilirubin 0.5mg/dl Direct Bilirubin 0.00mg/dl Indirect Bilirubin 0.5mg/dl Aspartate Amino Transf (AST/SGOT) 18IU/L Alanine Aminotransferase (ALT/SGPT) 26IU/L Alkaline Phosphatase 84IU/L Total Protein 6.9g/dl Albumin 3.4g/dl Globulin 3.50g/dl Albumin/Globulin Ratio 0.97 Lipase 71U/L Procedures/MDM MEDICAL MAKING DECISION: The patient is a 81-year-old male, presenting with acute cystitis, acute dehydration. He was treated with Cipro 500 mg p.o. acute cystitis and normosaline 500 mL IV for acute dehydration with good response The differential diagnoses considered include but are not limited to cholelithiasis, cholecystitis, cystitis, pancreatitis, hepatitis, gastritis, peptic ulcer disease, gastric ulcer, appendicitis, diverticulitis, cholangitis, choledocholithiasis, partial small bowel obstruction. Departure Diagnosis: Primary Impression: UTI (urinary tract infection) Additional Impressions: Dehydration Anemia Condition: Good Comments He was discharged with Cipro I discussed the findings with the patient. I advised the patient to follow-up with the primary physician in about 1-2 days, sooner if needed and return if any concern. Disclaimer: Inadvertent spelling and grammatical errors are likely due to EHR/ dictation software use and do not reflect on the overall quality of patient care. Also, please note that the electronic time recorded on this note does not necessarily reflect the actual time of the patient encounter. WESLEY WILLS MD Feb 21, 2017 01:03
[2017-02-21 02:55] LABS: ALBUMIN 3.4 g/dl (3.3-4.9); ALBUMIN/GLOBULIN RATIO 0.97; BILIRUBIN,INDIRECT 0.5 mg/dl (0-1.1); BILIRUBIN,TOTAL 0.5 mg/dl (0.2-1.3); CALCIUM 9.3 mg/dl (8.4-10.2); CREATININE 1.23 mg/dl (0.61-1.24); TOTAL PROTEIN 6.9 g/dl (6.1-8.1)
[2017-02-21 03:12] LABS: UR BACTERIA FEW /HPF (NONE SEEN); UR MUCUS FEW /HPF (NONE SEEN); UR RBC 103 /HPF (0-5)
[2017-02-21 03:25] LABS: ADD UMIC YES; UR CLARITY HAZY (CLEAR); UR COLOR AMBER (YELLOW)
[2017-02-21 03:26] LABS: UR TOTAL PROTEIN (Dip) 4+ mg/dl (NEGATIVE)
[2017-02-21 03:27] LABS: UR BILIRUBIN (Dip) NEGATIVE (NEGATIVE); UR BLOOD (Dip) 3+ mg/dL (NEGATIVE); UR KETONES (Dip) TRACE mg/dL (NEGATIVE); UR LEUKOCYTE ESTERASE (Dip) 1+ Leu/ul (NEGATIVE); UR NITRITE (Dip) POSITIVE (NEGATIVE); UR UROBILINOGEN (Dip) 2.0 E.U./dL mg/dL (NEGATIVE)
[2017-02-21 03:28] LABS: BASOPHIL # 0.1 10^3/ul (0.0-0.1); BASOPHILS % 0.5 % (0.0-2.0); EOSINOPHILS # 0.1 10^3/ul (0.0-0.5); EOSINOPHILS % 1.3 % (0.0-7.0); HEMATOCRIT 38.7 % (42.0-52.0); LYMPHOCYTES % 10.9 % (15.0-51.0); MEAN CORPUSCULAR HEMOGLOBIN 31.9 pg (29.0-33.0); MEAN CORPUSCULAR HGB CONC 33.6 g/dl (32.0-37.0); MEAN CORPUSCULAR VOLUME 94.9 fl (82.0-101.0); MEAN PLATELET VOLUME 11.6 fl (7.4-10.4); MONOCYTE # 1.3 10^3/ul (0.3-0.9); MONOCYTES % 13.9 % (0.0-11.0); NEUTROPHIL # 6.7 10^3/ul (1.6-7.5); NEUTROPHILS % 73.2 % (39.0-77.0); PLATELET COUNT 173 10^3/UL (140-415); RED BLOOD COUNT 4.08 10^6/ul (4.70-6.10); RED CELL DISTRIBUTION WIDTH 13.1 % (11.5-14.5); WHITE BLOOD COUNT 9.2 10^3/ul (4.8-10.8)
[2017-02-21] MEDS ORDERED: CIPR500T4 PO (04:12)
[2017-02-21] MEDS ORDERED: CIPROFLOXACIN 500 MG TAB PO ONE (04:30)
[2017-02-21] MEDS ORDERED: SOD CHLORIDE 0.9% 500 ML IV ONE (04:30)
[2017-02-21 05:58] VITALS: BP 135/69; PULSE 70; RESP 20; TEMP 98.9
== END 2017-02-21 05:59 | disposition home or self-care (01) ==
LOC: E/R 22:29
DX: N39.0 Urinary tract infection, site not specified (principal); E86.0 Dehydration; D64.9 Anemia, unspecified; I50.9 Heart failure, unspecified; I10 Essential (primary) hypertension
CPT/HCPCS: 36415; 80053; 81001; 83690; 85025; 87086; 99284; J7040

== ENCOUNTER 2017-02-21 19:08 | Inpatient (IN) | payer OTHER ==
[~2017-02-21] VITALS: Ht 165.1 cm; Wt 76.9 kg
[~2017-02-21 19:08] MED LIST changes: +CIPR500T4 PO; +ETOMIDATE 20 MG INJ ONE; +MIDAZOLAM 1 MG/ML 2 ML INJ ONE; +PROPOFOL 200 MG INJ ONE; +SUCCINYLCHOLINE CHLORIDE 100 MG/5 ML SYG IV ONE
[2017-02-21] MEDS ORDERED: ALBUTEROL 0.5% (NEB) 2.5 MG/0.5 ML AMP INH STA (19:10)
[2017-02-21] MEDS ORDERED: METHYLPREDNISOLONE 125 MG INJ IV STA (19:10)
[2017-02-21] MEDS ORDERED: IPRATROPIUM (NEB) 0.5 MG/2.5 ML AMP INH STA (19:10)
[2017-02-21] MEDS ORDERED: CEFEPIME 2GM/50 ML (PMX) 50 ML IVPB STA (19:12)
[2017-02-21] MEDS ORDERED: VANCOMYCIN 1 GM (PMX) 250 ML IVPB ONE (19:30)
[2017-02-21 20:11] LABS: INR 1.03; PROTIME 13.6 Sec (11.9-14.9); PT RATIO 1.1
--- NOTE | 2017-02-21 20:13 | RADRPT ---
PROCEDURE: XR Chest. CLINICAL INDICATION: Chest pain. Possible sepsis TECHNIQUE: Portable AP semi erect view of the chest was obtained. COMPARISON: 04/12/2016 FINDINGS: The cardiomediastinal silhouette is within normal limits. New diffuse interstitial infiltrates of t he right greater than left lung cannot exclude interstitial pneumonia without focal lobar consolidat ion. There is no evidence for pleural effusion, pneumothorax or pulmonary vascular congestion. The osseous structures are intact with no evidence for acute abnormality. Calcification of the aortic a rch is present. RPTAT:HJJR IMPRESSION: 1. New diffuse interstitial infiltrates involving the right greater than left lung concerning for in terstitial pneumonia without lobar consolidation. 2. Aortic atherosclerosis is present. Physician Prosper Date Time Electronically viewed and signed by Rosendo Ervin Physician on 02/21/2017 20:12 JR/
[2017-02-21 20:38] LABS: ADD UMIC YES; UR ASCORBIC ACID NEGATIVE (NEGATIVE); UR BACTERIA FEW /HPF (NONE SEEN); UR BILIRUBIN (Dip) NEGATIVE (NEGATIVE); UR BLOOD (Dip) 2+ mg/dL (NEGATIVE); UR CLARITY SLIGHTLY CLOUDY (CLEAR); UR COLOR AMBER (YELLOW); UR GLUCOSE (Dip) NEGATIVE (NEGATIVE); UR KETONES (Dip) NEGATIVE (NEGATIVE); UR LEUKOCYTE ESTERASE (Dip) 1+ Leu/ul (NEGATIVE); UR MUCUS FEW /HPF (NONE SEEN); UR NITRITE (Dip) POSITIVE (NEGATIVE); UR RBC 20 /HPF (0-5); UR SPECIFIC GRAVITY (Dip) 1.024 (1.003-1.030); UR SQUAMOUS EPITHELIAL CELL FEW /HPF (FEW); UR TOTAL PROTEIN (Dip) 2+ mg/dl (NEGATIVE); UR UROBILINOGEN (Dip) 2+ mg/dL (NEGATIVE)
[2017-02-21 20:38] LABS: BASOPHIL # 0.1 10^3/ul (0.0-0.1); BASOPHILS % 0.5 % (0.0-2.0); EOSINOPHILS # 0.1 10^3/ul (0.0-0.5); EOSINOPHILS % 0.9 % (0.0-7.0); HEMATOCRIT 40.3 % (42.0-52.0); HEMOGLOBIN 13.6 g/dl (14.0-18.0); LYMPHOCYTES % 7.1 % (15.0-51.0); MEAN CORPUSCULAR HEMOGLOBIN 32.1 pg (29.0-33.0); MEAN CORPUSCULAR HGB CONC 33.7 g/dl (32.0-37.0); MEAN PLATELET VOLUME 11.3 fl (7.4-10.4); MONOCYTE # 1.3 10^3/ul (0.3-0.9); MONOCYTES % 9.4 % (0.0-11.0); NEUTROPHIL # 11.5 10^3/ul (1.6-7.5); NEUTROPHILS % 81.7 % (39.0-77.0); PLATELET COUNT 162 10^3/UL (140-415); RED BLOOD COUNT 4.24 10^6/ul (4.70-6.10); RED CELL DISTRIBUTION WIDTH 13.2 % (11.5-14.5); WHITE BLOOD COUNT 14.1 10^3/ul (4.8-10.8)
[2017-02-21] MEDS ORDERED: SODIUM CHLORIDE 0.9% 1L BAG IV* STA (20:40)
[2017-02-21 20:42] LABS: AADO2 Arterial 275.9 mmHg (7.0-24.0); Allen Test ACCEPTAB; Arterial Base Excess 2.9 mmol/L (-3.0-3); Arterial COHb 0.4 % (0.0-3.0); Arterial Fraction of Oxyhgb 98.8 % (93.0-99.0); Arterial HCO3 27.4 mmol/L (22.0-26.0); Arterial MetHb 0.3 % (0.0-1.5); Arterial Total Hemglobin 14.2 g/dl (12.0-18.0); Blood Gas IEPAP 18/5; Blood Gas PS 13; MODE MASK - BIPAP
[2017-02-21 20:55] LABS: PARTIAL THROMBOPLASTIN TIME 29.2 Sec (25.0-35.0)
[2017-02-21 21:32] LABS: ALBUMIN 3.5 g/dl (3.3-4.9); ALBUMIN/GLOBULIN RATIO 0.89; BILIRUBIN,INDIRECT 0.6 mg/dl (0-1.1); BILIRUBIN,TOTAL 0.6 mg/dl (0.2-1.3); CALCIUM 8.9 mg/dl (8.4-10.2); CREATININE 1.19 mg/dl (0.61-1.24); POTASSIUM 4.3 mmol/L (3.5-5.1); TOTAL PROTEIN 7.4 g/dl (6.1-8.1)
[2017-02-21 21:45] LABS: TROPONIN-I 0.1 ng/ml (0.00-0.12)
[2017-02-21] MEDS ORDERED: ACETAMINOPHEN 325 MG TAB PO PRN (22:00)
[2017-02-21] MEDS ORDERED: ONDANSETRON 4 MG INJ IV PRN (22:00)
--- NOTE | 2017-02-21 22:06 | ERD ---
ER Documentation Chief Complaint Chief Complaint sudden onset SOB x 30 min, bilat ronchi, severe distresss, cpap per EMS HPI This is an 81-year-old male who presents to the emergency room after being brought in by EMS from his home for evaluation of shortness of breath. The patient was unable to give a detailed history secondary to his clinical condition. According to EMS this patient has severe shortness of breath and had to be placed on a CPAP prior to arrival. They state that he had coarse breath sounds and was ordered had a pulse ox of 80% on room air. ROS All systems reviewed and are negative except as per history of present illness. Medications Home Meds Active Scripts Ciprofloxacin Hcl* (Ciprofloxacin Hcl*) 500 Mg Tablet, 500 MG PO BID for 7 Days , TAB Prov:WESLEY WILLS MD 02/21/17 Furosemide (Lasix) 20 Mg Tab, 20 MG PO DAILY for 30 Days, TAB 3 Refills Prov:NADIYA PABLO 02/10/17 Metoprolol Tartrate* (Lopressor*) 25 Mg Tab, 25 MG PO BID for 30 Days, TAB 3 Refills Prov:NADIYA PABLO 02/10/17 Reported Medications Solifenacin* (Vesicare*) 10 Mg Tablet, 10 MG PO DAILY, TAB 04/11/16 Benazepril Hcl* (Benazepril Hcl*) 40 Mg Tablet, 40 MG PO DAILY, #30 TAB 04/11/16 Allergies Allergies: Coded Allergies: No Known Drug Allergies (Verified Allergy, Mild, 04/11/16) PMhx/Soc History of Surgery: Yes (crainotomy - 2001 ) Anesthesia Reaction: No Hx Neurological Disorder: Yes (hx of CVA -2001 (Left sided weakness)) Hx Respiratory Disorders: No Hx Cardiac Disorders: Yes (HTN, CHF, ) Hx Psychiatric Problems: No Hx Miscellaneous Medical Probl: Yes (Hernia) Hx Alcohol Use: No Hx Substance Use: No Hx Tobacco Use: No Smoking Status: Unknown if ever smoked Physical Exam Vitals Vital Signs Date Time Temp Pulse Resp B/P Pulse Ox O2 Delivery O2 Flow Rate FiO2 02/21/17 21:44 98.8 89 14 120/79 96 Nasal Cannula 2.0 02/21/17 19:10 112 99 80 02/21/17 19:10 101.8 118 28 160/122 95 Physical Exam INITIAL VITAL SIGNS: Reviewed by me GENERAL: The patient is in severe respiratory distress HEENT: Pupils equal, round, and reactive to light. EOMI. There is no scleral icterus. NECK: C-spine is soft and supple, there is no meningismus. There is no cervical lymphadenopathy. LUNGS: Coarse rhonchi auscultated in the bilateral lower lobes HEART: Tachycardic, no murmurs, clicks, rubs or gallops. ABDOMEN: Very umbilical hernia which is reducible, otherwise soft, non-tender, non-distended. There are bowel sounds in all four quadrants. No rebound or guarding. EXTREMITIES: There is no peripheral cyanosis or edema. No focal swelling or erythema. NEUROLOGICAL: The patient moves all four extremities with 5/5 strength. Cranial nerves II - XII are intact. Normal gait. Alert and oriented SKIN: Diaphoretic, there is no apparent rash or petechiae. HEME/LYMPHATIC: There is no evidence of excessive bruising or lymphedema. PSYCHIATRIC: The patient does not appear anxious or depressed. Result Diagram: 02/21/17201402/21/172014 Results 24 hrs Laboratory Tests Test 02/21/17 19:13 02/21/17 19:40 02/21/17 20:03 02/21/17 20:15 Blood Gas Specimen Source Blood arterial Arterial Blood Date Drawn 02/21/2017 8:30:00 PM Arterial Blood pH (Temp corrected) 7.438 Arterial Blood pCO2 (Temp correct) 41.4mmhg Arterial Blood pO2 (Temp corrected) 251.0mmHG Arterial Blood HCO3 27.4mmol/L Arterial Blood Base Excess 2.9mmol/L Arterial Blood Oxygen Saturation 99.5mmHG Presley Test ACCEPTAB Arterial Blood Gas Puncture Site Right HEEL Arterial Blood Carboxyhemoglobin 0.4% Arterial Blood Methemoglobin 0.3% Blood Gas A-a O2 Differential 275.9mmHg Oxyhemoglobin Percent 98.8% Total Hemoglobin 14.2g/dl Blood Gas Temperature 37.0C Blood Gas Respiration Rate 20.0 Blood Gas Actual Respiration Rate 22 Blood Gas Modality MASK - BIPAP FiO2 80.0% Blood Gas Pressure Support 13 Blood Gas IPAP/EPAP Ratio 18/5 Blood Gas Notified Whom UP Blood Gas Notified Time 02/21/2017 8:42:09 PM Lactic Acid Level 3.4mmol/L Urine Color SAJAN Urine Clarity SLIGHTLY CLOUDY Urine pH 5.0 Urine Specific [place] 1.024 Urine Ketones NEGATIVEmg/dL Urine Nitrite POSITIVEmg/dL Urine Bilirubin NEGATIVEmg/dL Urine Urobilinogen 2+mg/dL Urine Leukocyte Esterase 1+Daphne/ul Urine Microscopic RBC 20/HPF Urine Microscopic WBC > 182/HPF Urine Squamous Epithelial Cells FEW/HPF Urine Bacteria FEW/HPF Urine Mucus FEW/HPF Urine Hemoglobin 2+mg/dL Urine Glucose NEGATIVEmg/dL Urine Total Protein 2+mg/dl White Blood Count 14.110^3/ul Red Blood Count 4.2410^6/ul Hemoglobin 13.6g/dl Hematocrit 40.3% Mean Corpuscular Volume 95.0fl Mean Corpuscular Hemoglobin 32.1pg Mean Corpuscular Hemoglobin Concent 33.7g/dl Red Cell Distribution Width 13.2% Platelet Count 21498^3/UL Mean Platelet Volume 11.3fl Neutrophils % 81.7% Lymphocytes % 7.1% Monocytes % 9.4% Eosinophils % 0.9% Basophils % 0.5% Nucleated Red Blood Cells % 0.0/100WBC Neutrophils # 11.510^3/ul Lymphocytes # 1.010^3/ul Monocytes # 1.310^3/ul Eosinophils # 0.110^3/ul Basophils # 0.110^3/ul Nucleated Red Blood Cells # 0.010^3/ul Prothrombin Time 13.6Sec Prothrombin Time Ratio 1.1 INR International Normalized Ratio 1.03 Activated Partial Thromboplast Time 29.2Sec Sodium Level 145mmol/L Potassium Level 4.3mmol/L Chloride Level 106mmol/L Carbon Dioxide Level 30mmol/L Anion Gap 13 Blood Urea Nitrogen 32mg/dl Creatinine 1.19mg/dl Glucose Level 162mg/dl Calcium Level 8.9mg/dl Total Bilirubin 0.6mg/dl Direct Bilirubin 0.00mg/dl Indirect Bilirubin 0.6mg/dl Aspartate Amino Transf (AST/SGOT) 48IU/L Alanine Aminotransferase (ALT/SGPT) 23IU/L Alkaline Phosphatase 95IU/L Troponin I 0.100ng/ml B-Type Natriuretic Peptide 75398ZI/ML Total Protein 7.4g/dl Albumin 3.5g/dl Globulin 3.90g/dl Albumin/Globulin Ratio 0.89 Current Medications Medications (Trade) Dose Ordered Sig/Robin Route PRN Reason Start Time Stop Time Status Last Admin Dose Admin Albuterol (Proventil 0.5% (Neb)) 15 mg ONCE STAT INH 02/21/17 19:10 02/21/17 19:12 DC 02/21/17 19:39 Ipratropium [place] (Atrovent 0.02% (Neb)) 1 mg ONCE STAT INH 02/21/17 19:10 02/21/17 19:12 DC 02/21/17 19:38 Methylprednisolone Sodium Succinate 125 mg 125 mg ONCE STAT IV 02/21/17 19:10 02/21/17 19:13 DC 02/21/17 19:42 Cefepime HCl 50 ml @ 100 mls/hr ONCE STAT IVPB 02/21/17 19:12 02/21/17 19:41 DC 02/21/17 19:42 Vancomycin HCl (Vancocin) 250 ml @ 125 mls/hr ONCE ONCE IVPB 02/21/17 19:30 02/21/17 21:29 DC 02/21/17 20:05 Sodium Chloride (NS) 2,330 ml BOLUS OVER 2 HOURS STAT IV* 02/21/17 20:40 02/21/17 20:44 DC 02/21/17 20:57 Ondansetron HCl (Zofran Inj) 4 mg ER BRIDGE PRN IV NAUSEA AND/OR VOMITING 02/21/17 22:00 02/22/17 21:59 Acetaminophen (Tylenol Tab) 650 mg ER BRIDGE PRN PO MILD PAIN/FEVER 02/21/17 22:00 02/22/17 21:59 Procedures/MDM Chest X-ray 1V Interpreted by me: Soft Tissue: Bilateral pneumonia Bones: No acute abnormalities Mediastinum/Cardiac Silhouette/Lungs: [No acute abnormalities] EKG: Rate/Rhythm: Sinus tachycardia QRS, ST, T-waves: [No changes consistent w/ acute ischemia] Impression: [No evidence of ischemia or arrhythmia] This 81-year-old male presents to the ER for evaluation of shortness of breath. When I evaluated this patient he was in severe respiratory distress, he was on CPAP. I did transition him over to BiPAP and noted that he was diaphoretic and tachypneic and tachycardic. This patient tolerated BiPAP well. Septic workup was started and this patient was found to have bilateral pneumonias. The patient was seen in the emergency room yesterday and was discharged home with antibiotics for urinary tract infection. He had no respiratory symptoms yesterday and respiratory symptoms did start tonight while he was at home. He does have a history of CHF with no signs of obvious fluid overload. This patient did receive 30 cc/kg of IV normal saline, and his mean arterial pressure is greater than 65 at this time with no need for vasopressors. He was started on Vanco and cefepime for blood and urine cultures were obtained and will be admitted to Dr. Martinez from [facility]. Critical Care: Excluding all billable procedures Time: 38 minutes Treatments/Evaluations: Close monitoring and treatment of unstable vital signs, cardiorespiratory, and neurologic status, while maintaining tight balance of fluid, respiratory, and cardiac interventions. Departure Diagnosis: Primary Impression: Sepsis Additional Impressions: Acute and chronic respiratory failure with hypoxia Bilateral pneumonia Acute cystitis Condition: LAYLA Majano DO Feb 21, 2017 22:06
[2017-02-21] MEDS ORDERED: PROPOFOL 100 ML ONE (22:26)
[2017-02-21] MEDS ORDERED: VANCOMYCIN IV PER PHARMACY XX SCH (22:30)
[2017-02-21] MEDS ORDERED: SUCCINYLCHOLINE CHLORIDE 100 MG/5 ML SYG IV STA (22:32)
[2017-02-21] MEDS ORDERED: PROPOFOL 100 ML IV STA (22:32)
[2017-02-21] MEDS ORDERED: ETOMIDATE 20 MG INJ IV STA (22:32)
[2017-02-21] MEDS ORDERED: FUROSEMIDE 40 MG INJ ONE (22:36)
--- NOTE | 2017-02-21 22:57 | RADRPT ---
PROCEDURE: Chest. CLINICAL INDICATION: Chest pain. TECHNIQUE: 2 frontal views of the chest were obtained. COMPARISON: 02/21/2017. FINDINGS: There is an endotracheal tube 4.5 cm above the ana. The cardiac silhouette is enlarged. The aort ic arch is calcified. There are hazy and patchy opacities bilaterally. There is no pleural effusion . There is no pneumothorax. IMPRESSION: Bilateral hazy and patchy opacities could represent pulmonary edema and/or multifocal pneumonia. Cardiomegaly and aortic atherosclerosis. Endotracheal tube in place. .Colin Gill MD, MD Date Time Electronically viewed and signed by .Colin Gill MD, MD on 02/21/2017 22:57 .T/
[2017-02-21] MEDS ORDERED: ACETAMINOPHEN 1000MG/100ML IV 100 ML IVPB SCH (23:00)
[2017-02-21] MEDS ORDERED: ACETAMINOPHEN 1000MG/100ML IV 100 ML IVPB PRN (23:00)
[2017-02-21] MEDS ORDERED: LORAZEPAM 2 MG INJ IV PRN (23:00)
[2017-02-21] MEDS: PROPOFOL 100 ML IV SCH (23:00)
[2017-02-21] MEDS ORDERED: MIDAZOLAM (DRIP) 50 mg/50 mL 50 ML IV STA (23:00)
[2017-02-21] MEDS: LEVOFLOXACIN 750MG/D5W (PMX) 150 ML IVPB SCH (23:00)
[2017-02-21] MEDS ORDERED: FUROSEMIDE 40 MG INJ IV ONE (23:00)
[2017-02-21] MEDS: SOD CHLORIDE 0.9% 1,000 ML IV SCH (23:00)
[2017-02-21 23:09] LABS: AADO2 Arterial 468.6 mmHg (7.0-24.0); Arterial COHb 0.2 % (0.0-3.0); Arterial Fraction of Oxyhgb 98.4 % (93.0-99.0); Arterial HCO3 23.8 mmol/L (22.0-26.0); Arterial MetHb 0.3 % (0.0-1.5); Arterial Total Hemglobin 15.9 g/dl (12.0-18.0); Blood Gas Mean Airway Pressure 13; MODE VENT - AC
[2017-02-21 23:27] LABS: ADD UMIC YES; UR ASCORBIC ACID NEGATIVE (NEGATIVE); UR BILIRUBIN (Dip) NEGATIVE (NEGATIVE); UR BLOOD (Dip) 2+ mg/dL (NEGATIVE); UR CLARITY SLIGHTLY CLOUDY (CLEAR); UR COLOR AMBER (YELLOW); UR GLUCOSE (Dip) NEGATIVE (NEGATIVE); UR KETONES (Dip) NEGATIVE (NEGATIVE); UR LEUKOCYTE ESTERASE (Dip) 2+ Leu/ul (NEGATIVE); UR MUCUS FEW /HPF (NONE SEEN); UR NITRITE (Dip) POSITIVE (NEGATIVE); UR RBC 17 /HPF (0-5); UR SPECIFIC GRAVITY (Dip) 1.023 (1.003-1.030); UR TOTAL PROTEIN (Dip) 1+ mg/dl (NEGATIVE); UR UROBILINOGEN (Dip) 1+ mg/dL (NEGATIVE)
--- NOTE | 2017-02-21 23:27 | HP ---
Date/Time of Note Date/Time of Note DATE: 02/21/17 TIME: 23:01 Assessment/Plan VTE Prophylaxis VTE Prophylaxis Intervention: anti-embolic stocking, heparin Lines/Catheters IV Catheter Type (from Nrs): Peripheral IV Urinary Cath still in place: Yes Reason Cath still needed: urinary retention Assessment/Plan Problems: (1) Acute and chronic respiratory failure with hypoxia Status: Acute Comment: He is intubated due to acute and severe hypoxia and lethargy while BiPAP trial. IV propofol drip per protocol. Ventilator support ABG in A.M. (2) Sepsis Status: Acute Comment: Sepsis protocol initiated. IV fluid for hydration blood culture,urine and sputum culture. Lactic acid per septic protocol. Zosyn ,Levaquin and Vancomycin given. arterial line and central line may be needed for hemodynamic monitoring. Qualifiers: Sepsis type: Streptococcus, other Qualified Code: A40.8 - Other streptococcal sepsis (3) Bilateral pneumonia Status: Acute Comment: Aspiration pneumonia is in consideration . DuoNeb NB Q 4 hrs as needed for short of breath. Zosyn and Levaquin given. Sputum culture result pending aspiration precaution HOB elevated Qualifiers: Pneumonia type: aspiration pneumonia Aspiration pneumonia type: unspecified Lung location: lower lobe of lung Qualified Code: J69.0 - Aspiration pneumonia of both lower lobes, unspecified aspiration pneumonia type (4) Acute cardiac pulmonary edema Status: Acute (5) CHF exacerbation (6) CVA, old, hemiparesis Status: Chronic Comment: PT/OT evaluation turn patient Q4 hrs to prevent decubitus ulcer (7) Sepsis secondary to UTI Status: Acute (8) COPD (chronic obstructive pulmonary disease) HPI/ROS Admit Date/Time Admit Date/Time 02/21/2017 ROS This is a 81 years old [place] man with significant medical illness of chronic CHF without known EF on Lasix,hypertensive cardiomyopathy,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 He was brought in by EMS from home due to acute and severe short of breath. He was not able to give more detail of history due to severe short of breath. He has had coarse breath sounds when breath in and out. He also has had productive cough. He was found to be hypoxic in RA en route . Then BIPAP has been placed . However,he was very lethargic and became more lethargic after BiPAP mask on for less than 30 mins. He is intubated due to acute respiratory failure due to acute on top of chronic CHF and bilateral pneumonia. He has been given propofol drip to titrate to keep him sedated. He was having dark urine in Ruiz catheter bag. Urine showed acute UTI and high specific gravity due to possible dehydration. He has got total of 2 L NS bolus due to elevated lactic acid level. Repeated lactic acid level was normal. BPs was elevated due to agitation and possible pain. Subjective hx not possible: pt non-verbal, pt critical, pt critical status Constitutional: chills, diaphoresis, disoriented, fatigue, febrile, poor po Eyes: No discharge, No no complaints, No other, No pain, No redness, No visual change ENT: No bleeding, No congestion, No discharge, No dysphagia, No no complaints, No other, No pain, No sore throat Respiratory: cough, shortness of breath, sputum, No no complaints, No other, No pain, No pleuritic pain, No wheezing Cardiovascular: No chest pain, No edema, No lightheadedness, No no complaints, No orthopenea, No other, No palpitations, No paroxysmal nocturnal dyspnea Gastrointestinal: No blood, No constipation, No decreased appetite, No diarrhea , No flatus, No nausea, No no complaints, No other, No pain, No passing stool, No vomiting Genitourinary: discharge, dysuria, hematuria, No bleeding, No flank pain, No no complaints, No other Musculoskeletal: back pain, No bone/joint pain, No neck pain, No no complaints, No other, No restricted range of motion, No swelling Skin: No bruising, No erythema, No laceration, No no complaints, No other, No pruritis, No rash, No skin lesions Neurologic: No confusion, No dizziness, No focal-weakness, No headache, No no complaints, No other, No seizure, No syncope Endocrine: No dry skin, No no complaints, No other, No polydypsia, No polyuria , No temp intolerance, No weight change Lymphatic: No adenopathy, No lymphadema, No no complaints, No other, No tender nodes Psychological: anxiety, No confusion, No depression, No nl mood/affect, No no complaints, No other, No suicidal PMH/Family/Social Past Medical History Medical History: congestive heart failure, coronary artery disease, high cholesterol, hypertension, other (old CVA with leftsided weakness since 2001) Past Surgical History Past Surgical Hx: other (craniostomy ) Family History Significant Family History: no pertinent family hx Social History Alcohol Use: none Smoking Status: Unknown if ever smoked Drug Use: none Exam/Review of Systems Vital Signs Vitals Vital Signs Date Time Temp Pulse Resp B/P Pulse Ox O2 Delivery O2 Flow Rate FiO2 02/21/17 21:44 98.8 89 14 120/79 96 Nasal Cannula 2.0 02/21/17 19:10 80 Exam Exam He is septic ,agitated and intubated. He has had acute respiratory distress . He also productive cough. He is dehydrated and not able to give more history after intubated. He Psych: anxiety, confusion, No depression, No nl mood/affect, No no complaints, No other, No suicidal Head: atraumatic, normocephalic Eyes: EOMI, nl conjunctiva, nl lids ENMT: nl external ears & nose, nl lips & teeth, nl nasal mucosa & septum Neck: non-tender, supple, No bruits, No jvd, No masses, No nuchal rigidity, No other, No thyromegaly Respiratory: crackles/rales (on both middle and upper lung chapman) Cardiovascular: S4, nl pulses, regular rate and rhythm, No S3, No bruits, No diastolic murmur, No edema, No gallop, No irregular rhythm, No jugular venous distention (JVD), No murmurs/extra sounds, No other, No rub, No systolic murmur Gastrointestinal: distended, nl liver, spleen, other (umbilical hernia found but not strangulated), soft Genitourinary - Male: other (Ruiz catether in place. Thee was cloudy and dark yellow urine.) Musculoskeletal: muscle weakness (left upper and lower extrimity) Extremities: normal pulses, No calf tenderness, No clubbing, No cyanosis, No edema, No other, No palpable cord, No pitting pedal edema, No tenderness Neurological: confused, focal weakness, lethargic Skin: diaphoresis, other (dry skin turgor), No ecchymosis, No laceration, No nl turgor, No puncture, No rash or lesions Labs Result Diagram: 02/21/17201402/21/172014 Medications Medications Current Medications Benazepril HCl (Lotensin) 40 mg DAILY PO ; Start 02/22/17 at 09:00; Status UNV Metoprolol Tartrate (Lopressor) 25 mg BID PO ; Start 02/22/17 at 09:00; Status UNV Solifenacin (Vesicare) 10 mg DAILY PO ; Start 02/22/17 at 09:00; Status UNV Aspirin 81 mg 81 mg DAILY PO ; Start 02/22/17 at 09:00; Status UNV Piperacillin Sod/ Tazobactam Sod 50 ml @ 100 mls/hr Q8 IVPB ; Start 02/21/17 at 22:30; Status UNV Levofloxacin/ Dextrose (Levaquin 750 Mg/ D5W 150 ml (Pmx)) 150 ml @ 100 mls/hr Q24H IVPB ; Start 02/21/17 at 22:30; Status UNV Furosemide 40 mg 40 mg ONCE ONCE IV ; Start 02/21/17 at 23:00; Stop 02/21/17 at 23:01 Sodium Chloride (NS) 1,000 ml @ 100 mls/hr Q10H IV ; Start 02/21/17 at 23:00; Status UNV PERI SWAN MD Feb 21, 2017 23:11
[2017-02-21] MEDS: PIPER-TAZO 2.25 GM (PMX) 50 ML IVPB SCH (23:56)
[2017-02-22 01:53] LABS: CK-MB 3.33 ng/ml (0.0-2.4)
[2017-02-22 01:56] LABS: TROPONIN-I 0.37 ng/ml (0.00-0.12)
[2017-02-22] MEDS: PIPER-TAZO 2.25 GM (PMX) 50 ML IVPB SCH (05:26)
[2017-02-22 05:51] LABS: AADO2 Arterial 175.7 mmHg (7.0-24.0); Allen Test ACCEPTAB; Arterial Base Excess -3.4 mmol/L (-3.0-3); Arterial COHb 0 % (0.0-3.0); Arterial Fraction of Oxyhgb 98.7 % (93.0-99.0); Arterial HCO3 20.9 mmol/L (22.0-26.0); Arterial MetHb 0.1 % (0.0-1.5); Arterial Total Hemglobin 14.4 g/dl (12.0-18.0); MODE VENT - AC
[2017-02-22 06:01] LABS: ABNORMAL IP MESSAGE 1; BASOPHILS % 0.1 % (0.0-2.0); HEMATOCRIT 40.7 % (42.0-52.0); HEMOGLOBIN 13.4 g/dl (14.0-18.0); LYMPHOCYTES # 0.5 10^3/ul (0.8-2.9); LYMPHOCYTES % 3.8 % (15.0-51.0); MEAN CORPUSCULAR HGB CONC 32.9 g/dl (32.0-37.0); MEAN CORPUSCULAR VOLUME 97.1 fl (82.0-101.0); MEAN PLATELET VOLUME 11.2 fl (7.4-10.4); MONOCYTE # 0.6 10^3/ul (0.3-0.9); MONOCYTES % 4.3 % (0.0-11.0); NEUTROPHIL # 12.9 10^3/ul (1.6-7.5); NEUTROPHILS % 91.4 % (39.0-77.0); PLATELET COUNT 159 10^3/UL (140-415); POSITIVE DIFF @See below; RED BLOOD COUNT 4.19 10^6/ul (4.70-6.10); RED CELL DISTRIBUTION WIDTH 13.2 % (11.5-14.5); WHITE BLOOD COUNT 14.1 10^3/ul (4.8-10.8)
[2017-02-22 06:49] LABS: ALBUMIN 3.1 g/dl (3.3-4.9); ALBUMIN/GLOBULIN RATIO 0.88; BILIRUBIN,INDIRECT 0.4 mg/dl (0-1.1); BILIRUBIN,TOTAL 0.4 mg/dl (0.2-1.3); CALCIUM 8.1 mg/dl (8.4-10.2); CREATININE 1.18 mg/dl (0.61-1.24); POTASSIUM 4.4 mmol/L (3.5-5.1); TOTAL PROTEIN 6.6 g/dl (6.1-8.1)
[2017-02-22 06:54] LABS: CK-MB 4.32 ng/ml (0.0-2.4); TROPONIN-I 0.472 ng/ml (0.00-0.12)
[2017-02-22 07:45] LABS: BARBITURATES Negative (NEGATIVE); BENZODIAZEPINES Negative (NEGATIVE); CANNABINOIDS Negative (NEGATIVE); COCAINE Negative (NEGATIVE); OPIATES Negative (NEGATIVE)
[2017-02-22] MEDS: METOPROLOL 25 MG TAB NGT SCH ×2 (08:23→20:38)
[2017-02-22] MEDS ORDERED: ASPIRIN (EC) 81 MG TAB PO SCH (09:00)
[2017-02-22] MEDS ORDERED: SOLIFENACIN 5 MG TAB PO SCH (09:00)
[2017-02-22] MEDS ORDERED: BUMETANIDE 1 MG INJ IV SCH (09:00)
[2017-02-22] MEDS ORDERED: BENAZEPRIL 40 MG TAB PO SCH (09:00)
[2017-02-22] MEDS ORDERED: METOPROLOL 25 MG TAB PO SCH (09:00)
[2017-02-22] MEDS: ASPIRIN 81 MG TAB NGT SCH (09:14)
[2017-02-22] MEDS: PROPOFOL 100 ML IV SCH ×2 (11:00→23:00)
[2017-02-22] MEDS: PIPER-TAZO 3.375 GM IV (PMX) 50 ML IVPB SCH ×3 (14:02→23:19)
--- NOTE | 2017-02-22 14:13 | PN ---
Date/Time of Note Date/Time of Note DATE: 02/22/17 TIME: 14:01 Assessment/Plan VTE Prophylaxis VTE Prophylaxis Intervention: ambulation, anti-embolic stocking Lines/Catheters IV C[facility] Type [facility] PICC Line Central line insert date: Feb 22, 2017 Central line still needed: Yes Urinary Cath still in place: Yes Reason Cath still needed: urinary retention Assessment/Plan Problems: (1) Sepsis Status: Acute Qualifiers: Sepsis type: Streptococcus, other Qualified Code: A40.8 - Other streptococcal sepsis (2) Bilateral pneumonia Status: Acute Qualifiers: Pneumonia type: aspiration pneumonia Aspiration pneumonia type: unspecified Lung location: lower lobe of lung Qualified Code: J69.0 - Aspiration pneumonia of both lower lobes, unspecified aspiration pneumonia type (3) Acute and chronic respiratory failure with hypoxia Status: Acute (4) Acute cardiac pulmonary edema Status: Acute (5) CHF exacerbation Status: Acute (6) CVA, old, hemiparesis Status: Chronic (7) Sepsis secondary to UTI Status: Acute (8) NSTEMI (non-ST elevated myocardial infarction) Status: Acute Subjective 24 Hr Interval Summary Free Text/Dictation He is sedated and intubated . He is not having any fever since last night. H is breath ing was much better after IV Lasix given and Ventilator support. He is not requiring any pressor at this point. His urine output was good. No IV fluid given but there is no Lasix given either. Vital singed stable. ABG in A.M showed improved oxygenation and normal PH. Lactic acid was low . Positive Troponin level. Sepsis due to bilateral pneumonia which has been improved since yesterday. Zosyn,Levaquin and Vancomycin to be continued at this time. Gram stain from sputum sent and result is pending. Subjective hx not possible: pt non-verbal, pt critical Constitutional: requiring O2, No chills, No diaphoresis, No disoriented, No febrile, No improved, No other , No poor po, No requiring IVF Respiratory: No cough, No shortness of breath, No sputum Genitourinary: other (good uirne output in Ruiz bag) Exam/Review of Systems Vital Signs Vitals Vital Signs Date Time Temp Pulse Resp B/P Pulse Ox O2 Delivery O2 Flow Rate FiO2 02/22/17 11:00 65 20 96/75 100 Mechanical Ventilator 02/22/17 08:00 98.1 02/22/17 04:50 50 02/22/17 00:04 15.0 Exam He is afebrile. He is intubated and sedated. He is on Ventilator support. His ABG showed improved oxygenation and normal PH. CXR showed acute pulmonary edema after intubated. He has been given one time Lasix and since then he has good urine output. Echocardiogram ordered. Dr. Hernandez is on case regarding NSTEMI and acute pulmonary edema. Dr. Casanova is on case regrading ventilator management Constitutional: non-verbal, other (He is ) Head: atraumatic, normocephalic Eyes: EOMI, PERRL, nl conjunctiva, nl lids, nl sclera ENMT: mucosa pink and moist, nl external ears & nose, nl lips & teeth Neck: non-tender, supple, No bruits, No jvd, No masses, No nuchal rigidity, No other, No thyromegaly Respiratory: clear to auscultation, normal air movement, No congested cough, No crackles/rales, No diminished breath sounds, No intercostal retraction, No labored breathing, No other, No respirations, No tactile fremitus, No wheezing Cardiovascular: nl pulses, regular rate and rhythm, No S3, No S4, No bruits, No diastolic murmur, No edema, No gallop, No irregular rhythm, No jugular venous distention (JVD), No murmurs/extra sounds, No other, No rub, No systolic murmur Gastrointestinal: nl liver, spleen, non-tender, soft, No ascites, No bowel sounds, No distended, No firm, No hepatomegaly, No mass , No other, No rebound or guarding, No splenomegaly, No surgical scars, No tender Extremities: normal pulses, No cyanosis, No edema, No pitting pedal edema Neurological: unresponsive (due to sedation) Skin: nl turgor, rash or lesions Lymph: No enlarged, No nl lymph nodes, No nontender, No other Results Result Diagram: 02/22/17 0541 02/22/17 0541 Results 24 hrs Laboratory Tests Test 02/21/17 19:13 02/21/17 19:40 02/21/17 20:03 02/21/17 20:15 Blood Gas Specimen Source Blood arterial Arterial Blood Date Drawn 02/21/2017 8:30:00 PM Arterial Blood pH (Temp corrected) 7.438 Arterial Blood pCO2 (Temp correct) 41.4 Arterial Blood pO2 (Temp corrected) 251.0 H Arterial Blood HCO3 27.4 H Arterial Blood Base Excess 2.9 Arterial Blood Oxygen Saturation 99.5 Presley Test ACCEPTAB Arterial Blood Gas Puncture Site Right HEEL Arterial Blood Carboxyhemoglobin 0.4 Arterial Blood Methemoglobin 0.3 Blood Gas A-a O2 Differential 275.9 H Oxyhemoglobin Percent 98.8 Total Hemoglobin 14.2 Blood Gas Temperature 37.0 Blood Gas Respiration Rate 20.0 Blood Gas Actual Respiration Rate 22 Blood Gas Modality MASK - BIPAP FiO2 80.0 Blood Gas Pressure Support 13 Blood Gas IPAP/EPAP Ratio 18/5 Blood Gas Notified Whom UP Blood Gas Notified Time 02/21/2017 8:42:09 PM Lactic Acid Level 3.4 *H Urine Color SAJAN Urine Clarity SLIGHTLY CLOUDY A Urine pH 5.0 Urine Specific [place] 1.024 Urine Ketones NEGATIVE Urine Nitrite POSITIVE A Urine Bilirubin NEGATIVE Urine Urobilinogen 2+ H Urine Leukocyte Esterase 1+ H Urine Microscopic RBC 20 H Urine Microscopic WBC > 182 H Urine Squamous Epithelial Cells FEW Urine Bacteria FEW A Urine Mucus FEW A Urine Hemoglobin 2+ H Urine Glucose NEGATIVE Urine Total Protein 2+ H White Blood Count 14.1 #H Red Blood Count 4.24 L Hemoglobin 13.6 L Hematocrit 40.3 L Mean Corpuscular Volume 95.0 Mean Corpuscular Hemoglobin 32.1 Mean Corpuscular Hemoglobin Concent 33.7 Red Cell Distribution Width 13.2 Platelet Count 162 Mean Platelet Volume 11.3 H Neutrophils % 81.7 H Lymphocytes % 7.1 L Monocytes % 9.4 Eosinophils % 0.9 Basophils % 0.5 Nucleated Red Blood Cells % 0.0 Neutrophils # 11.5 H Lymphocytes # 1.0 Monocytes # 1.3 H Eosinophils # 0.1 Basophils # 0.1 Nucleated Red Blood Cells # 0.0 Prothrombin Time 13.6 Prothrombin Time Ratio 1.1 INR International Normalized Ratio 1.03 Activated Partial Thromboplast Time 29.2 Sodium Level 145 H Potassium Level 4.3 Chloride Level 106 Carbon Dioxide Level 30 Anion Gap 13 Blood Urea Nitrogen 32 H Creatinine 1.19 Glucose Level 162 Calcium Level 8.9 Total Bilirubin 0.6 Direct Bilirubin 0.00 Indirect Bilirubin 0.6 Aspartate Amino Transf (AST/SGOT) 48 #H Alanine Aminotransferase (ALT/SGPT) 23 Alkaline Phosphatase 95 Troponin I 0.100 B-Type Natriuretic Peptide 21416 H Total Protein 7.4 Albumin 3.5 Globulin 3.90 H Albumin/Globulin Ratio 0.89 Test 02/21/17 21:14 02/21/17 22:32 02/21/17 22:50 02/21/17 22:59 Lactic Acid Level 1.7 3.6 *H Blood Gas Specimen Source Blood arterial Arterial Blood Date Drawn 02/21/2017 10:55:07 PM Arterial Blood pH (Temp corrected) 7.177 *L Arterial Blood pCO2 (Temp correct) 65.7 H Arterial Blood pO2 (Temp corrected) 178.7 H Arterial Blood HCO3 23.8 Arterial Blood Base Excess -6.0 L Arterial Blood Oxygen Saturation 98.9 Presley Test N/A Arterial Blood Gas Puncture Site Right Brachial Arterial Blood Carboxyhemoglobin 0.2 Arterial Blood Methemoglobin 0.3 Blood Gas A-a O2 Differential 468.6 H Oxyhemoglobin Percent 98.4 Total Hemoglobin 15.9 Blood Gas Temperature 37.0 Blood Gas Respiration Rate 16.0 Blood Gas Actual Respiration Rate 23 Blood Gas Modality VENT - AC FiO2 100.0 Blood Gas Tidal Volume 500.0 Blood Gas Mean Airway Pressure 13 Blood Gas Low PEEP Setting 5.0 Blood Gas Inspiratory Pressure 31.0 Blood Gas Critical Value Read Back Yung [place] Blood Gas Notified Whom BL Blood Gas Notified Time 02/21/2017 11:09:26 PM Urine Color SAJAN Urine Clarity SLIGHTLY CLOUDY A Urine pH 5.0 Urine Specific [place] 1.023 Urine Ketones NEGATIVE Urine Nitrite POSITIVE A Urine Bilirubin NEGATIVE Urine Urobilinogen 1+ H Urine Leukocyte Esterase 2+ H Urine Microscopic RBC 17 H Urine Microscopic WBC 162 H Urine Mucus FEW A Urine Hemoglobin 2+ H Urine Glucose NEGATIVE Urine Total Protein 1+ H Test 02/22/17 05:00 02/22/17 05:41 Blood Gas Specimen Source Blood arterial Arterial Blood Date Drawn 02/22/2017 5:30:15 AM Arterial Blood pH (Temp corrected) 7.389 Arterial Blood pCO2 (Temp correct) 35.4 Arterial Blood pO2 (Temp corrected) 141.0 H Arterial Blood HCO3 20.9 L Arterial Blood Base Excess -3.4 L Arterial Blood Oxygen Saturation 98.8 Presley Test ACCEPTAB Arterial Blood Gas Puncture Site Right Radial Arterial Blood Carboxyhemoglobin 0 Arterial Blood Methemoglobin 0.1 Blood Gas A-a O2 Differential 175.7 H Oxyhemoglobin Percent 98.7 Total Hemoglobin 14.4 Blood Gas Temperature 37.0 Blood Gas Respiration Rate 18.0 Blood Gas Actual Respiration Rate 18 Blood Gas Modality VENT - AC FiO2 50.0 Blood Gas Tidal Volume 500.0 Blood Gas Low PEEP Setting 5.0 Blood Gas Inspiratory Pressure 19.0 Blood Gas Notified Whom UP Blood Gas Notified Time 02/22/2017 5:50:48 AM White Blood Count 14.1 H Red Blood Count 4.19 L Hemoglobin 13.4 L Hematocrit 40.7 L Mean Corpuscular Volume 97.1 Mean Corpuscular Hemoglobin 32.0 Mean Corpuscular Hemoglobin Concent 32.9 Red Cell Distribution Width 13.2 Platelet Count 159 Mean Platelet Volume 11.2 H Neutrophils % 91.4 H Lymphocytes % 3.8 L Monocytes % 4.3 Eosinophils % 0.0 Basophils % 0.1 Nucleated Red Blood Cells % 0.0 Neutrophils # 12.9 H Lymphocytes # 0.5 L Monocytes # 0.6 Eosinophils # 0.0 Basophils # 0.0 Nucleated Red Blood Cells # 0.0 Sodium Level 143 Potassium Level 4.4 Chloride Level 109 Carbon Dioxide Level 24 Anion Gap 14 Blood Urea Nitrogen 31 H Creatinine 1.18 Glucose Level 162 Lactic Acid Level 1.7 Calcium Level 8.1 L Total Bilirubin 0.4 Direct Bilirubin 0.00 Indirect Bilirubin 0.4 Aspartate Amino Transf (AST/SGOT) 38 Alanine Aminotransferase (ALT/SGPT) 38 Alkaline Phosphatase 83 Creatine Kinase 166 Creatine Kinase Index 2.6 Creatinine Kinase MB (Mass) 4.32 H Troponin I 0.472 *H Total Protein 6.6 Albumin 3.1 L Globulin 3.50 H Albumin/Globulin Ratio 0.88 Medications Medications Current Medications Benazepril HCl 40 mg 40 mg DAILY PO ; Start 02/22/17 at 09:00 Levofloxacin/ Dextrose 150 ml @ 100 mls/hr Q24H IVPB Last administered on 02/21t 23:00; Admin Dose 100 MLS/HR; Start 02/21/17 at 23:00 Sodium Chloride 1,000 ml @ 40 mls/hr Q24H IV ; Start 02/21/17 at 23:00 Propofol (Diprivan) 100 ml @ 2.25 mls/hr Q12H IV ; Start 02/21/17 at 23:00 Lorazepam 0.5 mg 0.5 mg Q6H PRN IV AGITATION/ANXIETY; Start 02/21/17 at 23:00 Acetaminophen (Ofirmev 1000mg/ 100ml Iv) 100 ml @ 400 mls/hr Q6H PRN IVPB fever nor mild pain; Start 02/21/17 at 23:00; Stop 02/22/17 at 23:00 Metoprolol Tartrate 25 mg 25 mg BID NGT ; Start 02/22/17 at 09:00 Vancomycin HCl 1.25 gm/Sodium Chloride 250 ml @ 83.333 mls/ hr Q24H IVPB ; Start 02/22/17 at 14:00 Piperacillin Sod/ Tazobactam Sod (Zosyn 3.375gm/ 50 ml (Pmx)) 50 ml @ 100 mls/ hr Q8 IVPB ; Start 02/22/17 at 14:00 Aspirin (Aspirin) 81 mg DAILY NGT Last administered on 02/22/17t 09:14; Admin Dose 81 MG; Start 02/22/17 at 09:00 PERI SWAN MD Feb 22, 2017 14:11
[2017-02-22] MEDS ORDERED: LIDOCAINE 1% (MPF) 5 ML VIAL SC ONE (14:30)
[2017-02-22] MEDS: VANCOMYCIN 1.25 GM in SOD CHLORIDE 0.9% 250 ML IVPB SCH (14:42)
[2017-02-22 14:48] LABS: CK-MB 3.7 ng/ml (0.0-2.4); TROPONIN-I 0.324 ng/ml (0.00-0.12)
--- NOTE | 2017-02-22 17:17 | CONS ---
Date/Time of Note Date/Time of Note DATE: 02/22/17 TIME: 17:08 Assessment/Plan Assessment/Plan Additional Assessment/Plan IMP: 1. Acute on chronic hypoxemic and hypercapnic resp failure--due to ADHF in the setting of severe . Given the asymmetrical radiographic appearance cannot exclude a co-existing CAP or aspiration pneumonia 2. Type II NSTEMI/Demand Ischemia 3. UTI 4. HTN heart Disease RECS: 1. Broad antibiotic coverage with plans to de-escalate following culture results 2. Vent support; with plans to wean as tolerated 3. Diuresis; following I/O and renal fxn 4. Obtain ECHO 5. Replete lytes as needed 6. DVT and GI prophylaxis Consultation Date/Type/Reason Admit Date/Time 02/21/2017 Type of Consultation: Pulm/CCM Hx of Present Illness Briefly, this is an 81-year-old man with a history of HTN heart disease, CVA, severe , HFpEF, s/p prior admits for ADHF who per records presented with acute on chronic dyspnea found to have hypercapnic and hypoxemic respiratory failure requiring intubation. At the time of my exam, he is sedated on mechanical ventilation. 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) Past Surgical History Past Surgical Hx: other (craniostomy ) Family History Significant Family History: no pertinent family hx Social History Alcohol Use: none Smoking Status: Unknown if ever smoked Drug Use: none Exam/Review of Systems Vital Signs Vitals Vital Signs Date Time Temp Pulse Resp B/P Pulse Ox O2 Delivery O2 Flow Rate FiO2 02/22/17 15:54 64 18 100 50 02/22/17 15:00 95/69 Mechanical Ventilator 02/22/17 08:00 98.1 02/22/17 00:04 15.0 Exam Constitutional: non-verbal Head: normocephalic Eyes: nl conjunctiva, nl lids, nl sclera ENMT: intubated, nl external ears & nose, nl lips & teeth, nl nasal mucosa & septum Neck: jvd, non-tender, supple Respiratory: crackles/rales Cardiovascular: regular rate and rhythm, systolic murmur Gastrointestinal: nl liver, spleen, non-tender, soft Musculoskeletal: nl extremities to inspection Extremities: normal pulses Results Result Diagram: 02/22/17 0541 02/22/17 0541 Results 24 hrs Laboratory Tests Test 02/21/17 19:13 02/21/17 19:40 02/21/17 20:03 02/21/17 20:15 Blood Gas Specimen Source Blood arterial Arterial Blood Date Drawn 02/21/2017 8:30:00 PM Arterial Blood pH (Temp corrected) 7.438 Arterial Blood pCO2 (Temp correct) 41.4 Arterial Blood pO2 (Temp corrected) 251.0 H Arterial Blood HCO3 27.4 H Arterial Blood Base Excess 2.9 Arterial Blood Oxygen Saturation 99.5 Presley Test ACCEPTAB Arterial Blood Gas Puncture Site Right HEEL Arterial Blood Carboxyhemoglobin 0.4 Arterial Blood Methemoglobin 0.3 Blood Gas A-a O2 Differential 275.9 H Oxyhemoglobin Percent 98.8 Total Hemoglobin 14.2 Blood Gas Temperature 37.0 Blood Gas Respiration Rate 20.0 Blood Gas Actual Respiration Rate 22 Blood Gas Modality MASK - BIPAP FiO2 80.0 Blood Gas Pressure Support 13 Blood Gas IPAP/EPAP Ratio 18/5 Blood Gas Notified Whom UP Blood Gas Notified Time 02/21/2017 8:42:09 PM Lactic Acid Level 3.4 *H Urine Color SAJAN Urine Clarity SLIGHTLY CLOUDY A Urine pH 5.0 Urine Specific [place] 1.024 Urine Ketones NEGATIVE Urine Nitrite POSITIVE A Urine Bilirubin NEGATIVE Urine Urobilinogen 2+ H Urine Leukocyte Esterase 1+ H Urine Microscopic RBC 20 H Urine Microscopic WBC > 182 H Urine Squamous Epithelial Cells FEW Urine Bacteria FEW A Urine Mucus FEW A Urine Hemoglobin 2+ H Urine Glucose NEGATIVE Urine Total Protein 2+ H White Blood Count 14.1 #H Red Blood Count 4.24 L Hemoglobin 13.6 L Hematocrit 40.3 L Mean Corpuscular Volume 95.0 Mean Corpuscular Hemoglobin 32.1 Mean Corpuscular Hemoglobin Concent 33.7 Red Cell Distribution Width 13.2 Platelet Count 162 Mean Platelet Volume 11.3 H Neutrophils % 81.7 H Lymphocytes % 7.1 L Monocytes % 9.4 Eosinophils % 0.9 Basophils % 0.5 Nucleated Red Blood Cells % 0.0 Neutrophils # 11.5 H Lymphocytes # 1.0 Monocytes # 1.3 H Eosinophils # 0.1 Basophils # 0.1 Nucleated Red Blood Cells # 0.0 Prothrombin Time 13.6 Prothrombin Time Ratio 1.1 INR International Normalized Ratio 1.03 Activated Partial Thromboplast Time 29.2 Sodium Level 145 H Potassium Level 4.3 Chloride Level 106 Carbon Dioxide Level 30 Anion Gap 13 Blood Urea Nitrogen 32 H Creatinine 1.19 Glucose Level 162 Calcium Level 8.9 Total Bilirubin 0.6 Direct Bilirubin 0.00 Indirect Bilirubin 0.6 Aspartate Amino Transf (AST/SGOT) 48 #H Alanine Aminotransferase (ALT/SGPT) 23 Alkaline Phosphatase 95 Troponin I 0.100 B-Type Natriuretic Peptide 18227 H Total Protein 7.4 Albumin 3.5 Globulin 3.90 H Albumin/Globulin Ratio 0.89 Test 02/21/17 21:14 02/21/17 22:32 02/21/17 22:50 02/21/17 22:59 Lactic Acid Level 1.7 3.6 *H Blood Gas Specimen Source Blood arterial Arterial Blood Date Drawn 02/21/2017 10:55:07 PM Arterial Blood pH (Temp corrected) 7.177 *L Arterial Blood pCO2 (Temp correct) 65.7 H Arterial Blood pO2 (Temp corrected) 178.7 H Arterial Blood HCO3 23.8 Arterial Blood Base Excess -6.0 L Arterial Blood Oxygen Saturation 98.9 Presley Test N/A Arterial Blood Gas Puncture Site Right Brachial Arterial Blood Carboxyhemoglobin 0.2 Arterial Blood Methemoglobin 0.3 Blood Gas A-a O2 Differential 468.6 H Oxyhemoglobin Percent 98.4 Total Hemoglobin 15.9 Blood Gas Temperature 37.0 Blood Gas Respiration Rate 16.0 Blood Gas Actual Respiration Rate 23 Blood Gas Modality VENT - AC FiO2 100.0 Blood Gas Tidal Volume 500.0 Blood Gas Mean Airway Pressure 13 Blood Gas Low PEEP Setting 5.0 Blood Gas Inspiratory Pressure 31.0 Blood Gas Critical Value Read Back Yung [place] Blood Gas Notified Whom Blood Gas Notified Time 02/21/2017 11:09:26 PM Urine Color SAJAN Urine Clarity SLIGHTLY CLOUDY A Urine pH 5.0 Urine Specific [place] 1.023 Urine Ketones NEGATIVE Urine Nitrite POSITIVE A Urine Bilirubin NEGATIVE Urine Urobilinogen 1+ H Urine Leukocyte Esterase 2+ H Urine Microscopic RBC 17 H Urine Microscopic WBC 162 H Urine Mucus FEW A Urine Hemoglobin 2+ H Urine Glucose NEGATIVE Urine Total Protein 1+ H Test 02/22/17 05:00 02/22/17 05:41 02/22/17 14:00 Blood Gas Specimen Source Blood arterial Arterial Blood Date Drawn 02/22/2017 5:30:15 AM Arterial Blood pH (Temp corrected) 7.389 Arterial Blood pCO2 (Temp correct) 35.4 Arterial Blood pO2 (Temp corrected) 141.0 H Arterial Blood HCO3 20.9 L Arterial Blood Base Excess -3.4 L Arterial Blood Oxygen Saturation 98.8 Presley Test ACCEPTAB Arterial Blood Gas Puncture Site Right Radial Arterial Blood Carboxyhemoglobin 0 Arterial Blood Methemoglobin 0.1 Blood Gas A-a O2 Differential 175.7 H Oxyhemoglobin Percent 98.7 Total Hemoglobin 14.4 Blood Gas Temperature 37.0 Blood Gas Respiration Rate 18.0 Blood Gas Actual Respiration Rate 18 Blood Gas Modality VENT - AC FiO2 50.0 Blood Gas Tidal Volume 500.0 Blood Gas Low PEEP Setting 5.0 Blood Gas Inspiratory Pressure 19.0 Blood Gas Notified Whom UP Blood Gas Notified Time 02/22/2017 5:50:48 AM White Blood Count 14.1 H Red Blood Count 4.19 L Hemoglobin 13.4 L Hematocrit 40.7 L Mean Corpuscular Volume 97.1 Mean Corpuscular Hemoglobin 32.0 Mean Corpuscular Hemoglobin Concent 32.9 Red Cell Distribution Width 13.2 Platelet Count 159 Mean Platelet Volume 11.2 H Neutrophils % 91.4 H Lymphocytes % 3.8 L Monocytes % 4.3 Eosinophils % 0.0 Basophils % 0.1 Nucleated Red Blood Cells % 0.0 Neutrophils # 12.9 H Lymphocytes # 0.5 L Monocytes # 0.6 Eosinophils # 0.0 Basophils # 0.0 Nucleated Red Blood Cells # 0.0 Sodium Level 143 Potassium Level 4.4 Chloride Level 109 Carbon Dioxide Level 24 Anion Gap 14 Blood Urea Nitrogen 31 H Creatinine 1.18 Glucose Level 162 Lactic Acid Level 1.7 Calcium Level 8.1 L Total Bilirubin 0.4 Direct Bilirubin 0.00 Indirect Bilirubin 0.4 Aspartate Amino Transf (AST/SGOT) 38 Alanine Aminotransferase (ALT/SGPT) 38 Alkaline Phosphatase 83 Creatine Kinase 166 126 Creatine Kinase Index 2.6 2.9 Creatinine Kinase MB (Mass) 4.32 H 3.70 H Troponin I 0.472 *H 0.324 *H Total Protein 6.6 Albumin 3.1 L Globulin 3.50 H Albumin/Globulin Ratio 0.88 Medications Medications Current Medications Benazepril HCl 40 mg 40 mg DAILY PO ; Start 02/22/17 at 09:00 Levofloxacin/ Dextrose 150 ml @ 100 mls/hr Q24H IVPB Last administered on 02/21 23:00; Admin Dose 100 MLS/HR; Start 02/21/17 at 23:00 Sodium Chloride 1,000 ml @ 40 mls/hr Q24H IV ; Start 02/21/17 at 23:00 Propofol (Diprivan) 100 ml @ 2.25 mls/hr Q12H IV ; Start 02/21/17 at 23:00 Lorazepam 0.5 mg 0.5 mg Q6H PRN IV AGITATION/ANXIETY; Start 02/21/17 at 23:00 Acetaminophen (Ofirmev 1000mg/ 100ml Iv) 100 ml @ 400 mls/hr Q6H PRN IVPB fever nor mild pain; Start 02/21/17 at 23:00; Stop 02/22/17 at 23:00 Metoprolol Tartrate 25 mg 25 mg BID NGT ; Start 02/22/17 at 09:00 Vancomycin HCl 1.25 gm/Sodium Chloride 250 ml @ 83.333 mls/ hr Q24H IVPB Last administered on 02/22/17 14:42; Admin Dose 83.333 MLS/HR; Start 02/22/17 at 14:00 Piperacillin Sod/ Tazobactam Sod (Zosyn 3.375gm/ 50 ml (Pmx)) 50 ml @ 100 mls/ hr Q8 IVPB Last administered on 02/22/17 14:02; Admin Dose 100 MLS/HR; Start 02/22/17 at 14:00 Aspirin (Aspirin) 81 mg DAILY NGT Last administered on 02/22/17 09:14; Admin Dose 81 MG; Start 02/22/17 at 09:00 FLACA العلي MD Feb 22, 2017 17:17
[2017-02-22] MEDS ORDERED: FENTAnyl 50 MCG/ML VIAL IV STA (20:02)
[2017-02-22] MEDS ORDERED: SOD CHLORIDE 0.9% 500 ML IV STA (20:25)
[2017-02-22] MEDS ORDERED: MIDAZOLAM (DRIP) 50 mg/50 mL 50 ML IV SCH (20:30)
[2017-02-22] MEDS ORDERED: MIDAZOLAM 1 MG/ML 2 ML INJ IV ONE (20:30)
[2017-02-22] MEDS ORDERED: DEXTROSE 5%-0.9% NACL 1,000 ML IV SCH (20:30)
[2017-02-22] MEDS ORDERED: FUROSEMIDE 40 MG INJ IV SCH (21:00)
[2017-02-22] MEDS: ATORVASTATIN 80 MG TAB NGT SCH (22:43)
[2017-02-22] MEDS: FENTAnyl 50 MCG/ML VIAL IV PRN (22:58)
[2017-02-22] MEDS: SOD CHLORIDE 0.9% 1,000 ML IV SCH (23:35)
[2017-02-22] MEDS: LEVOFLOXACIN 750MG/D5W (PMX) 150 ML IVPB SCH (23:55)
[2017-02-23] VITALS (36 sets, daily range): BP systolic 92–136; BP diastolic 63–91; PULSE 66–84; RESP 0–19; TEMP 97.4; Ht 165.1 cm; Wt 76.9 kg
[2017-02-23] MEDS: MIDAZOLAM (DRIP) 50 mg/50 mL 50 ML IV SCH ×4 (02:40→19:55)
[2017-02-23 05:33] LABS: AADO2 Arterial 143.3 mmHg (7.0-24.0); Allen Test ACCEPTAB; Arterial Base Excess 0 mmol/L (-3.0-3); Arterial COHb 0.3 % (0.0-3.0); Arterial Fraction of Oxyhgb 97.3 % (93.0-99.0); Arterial HCO3 23.3 mmol/L (22.0-26.0); Arterial MetHb 0.3 % (0.0-1.5); Arterial Total Hemglobin 12.9 g/dl (12.0-18.0); MODE VENT - AC
[2017-02-23 05:44] LABS: BASOPHILS % 0.2 % (0.0-2.0); EOSINOPHILS # 0.1 10^3/ul (0.0-0.5); EOSINOPHILS % 0.5 % (0.0-7.0); HEMOGLOBIN 11.7 g/dl (14.0-18.0); LYMPHOCYTES % 7.9 % (15.0-51.0); MEAN CORPUSCULAR HEMOGLOBIN 31.7 pg (29.0-33.0); MEAN CORPUSCULAR HGB CONC 33.4 g/dl (32.0-37.0); MEAN CORPUSCULAR VOLUME 94.9 fl (82.0-101.0); MEAN PLATELET VOLUME 11.3 fl (7.4-10.4); MONOCYTE # 1.4 10^3/ul (0.3-0.9); MONOCYTES % 10.7 % (0.0-11.0); NEUTROPHIL # 10.1 10^3/ul (1.6-7.5); NEUTROPHILS % 80.4 % (39.0-77.0); PLATELET COUNT 144 10^3/UL (140-415); RED BLOOD COUNT 3.69 10^6/ul (4.70-6.10); RED CELL DISTRIBUTION WIDTH 13.3 % (11.5-14.5); WHITE BLOOD COUNT 12.6 10^3/ul (4.8-10.8)
[2017-02-23] MEDS: FENTAnyl 50 MCG/ML VIAL IV PRN (05:50)
[2017-02-23] MEDS: PIPER-TAZO 3.375 GM IV (PMX) 50 ML IVPB SCH (06:14)
[2017-02-23 06:21] LABS: CALCIUM 8.3 mg/dl (8.4-10.2); CREATININE 1.22 mg/dl (0.61-1.24); POTASSIUM 3.8 mmol/L (3.5-5.1)
--- NOTE | 2017-02-23 07:21 | RADRPT ---
PROCEDURE: XR Chest. CLINICAL INDICATION: Shortness of breath TECHNIQUE: AP Portable chest. COMPARISON: CR CHEST 04/12/2016; CR CHEST 04/11/2016 FINDINGS: The endotracheal tube is in satisfactory position. New nasogastric tube courses the left upper abdom en. The cardiomediastinal silhouette is within normal limits. The aorta is calcified and tortuous. No pn eumothorax is seen. The lung volumes are low. Interval decrease bilateral perihilar opacities. Right basilar and retrocardiac densities are visualized. The right hemidiaphragm is elevated. There are d egenerative changes in the spine. IMPRESSION: ET and NG tubes appear in satisfactory position. Decreased bilateral perihilar infiltrates or edema. Bibasilar opacities, likely atelectasis. Aortic atherosclerosis. Physician Makeda Date Time Electronically viewed and signed by Physician Makeda on 02/23/2017 07:21 /
[2017-02-23] MEDS ORDERED: FUROSEMIDE 20 MG INJ IV SCH (10:00)
--- NOTE | 2017-02-23 10:13 | PN ---
Date/Time of Note Date/Time of Note DATE: 02/23/17 TIME: 09:47 Assessment/Plan VTE Prophylaxis VTE Prophylaxis Intervention: SCD's Lines/Catheters IV Catheter Type (from Nrs): Mid Line Central line still needed: Yes (IV access) Urinary Cath still in place: Yes Reason Cath still needed: other (indicate) (Diuresis) Assessment/Plan Assessment/Plan 81-year-old male with: 1. Staphylococcus aureus sepsis with confirm bacteremia and UTI. Final sensitivities pending. Patient will be maintained on Levaquin and vancomycin for now until final sensitivities available. Will discontinue Zosyn. Patient is much more stable this morning, off pressors. 2. Acute respiratory failure, hypoxemic, secondary to volume overload and flash pulmonary edema also possibly with CAP versus aspiration pneumonia. Patient has been diuresed throughout the weekend, renal function remains stable , will put him back on Lasix 20 mg IV daily since his blood pressure seems to be stable. Will titrate his diuretics as needed. Continue current antibiotics, Levaquin and vancomycin. Pulmonary toilet, weaning protocol from the ventilator per pulmonary critical care. 3. Acute on chronic systolic dysfunction congestive heart failure, ejection fraction 40% and critical aortic stenosis awaiting referral for TAVR procedure Patient did go into flash pulmonary edema with resuscitation in the emergency department, he is being diuresed, he will be diuresed further. Continue all the medications for now. Renal function stable so far. 4. Elevated troponin, in setting of acute respiratory failure and known critical aortic stenosis. Continue to trend troponins, follow cardiology recommendations. Prophylaxis: Pepcid for GI prophylaxis, SCDs for DVT prophylaxis Disposition: Follow-up cardiology recommendations, pulmonary recommendations and hopefully weaning off the ventilator soon. Subjective 24 Hr Interval Summary Free Text/Dictation Patient much more stable hemodynamically, he is on Versed for sedation and still awake, chest x-ray still showing signs of pulmonary edema, will put him on daily Lasix. Blood culture and urine culture back with Staphylococcus likely staph aureus, final sensitivities pending, will start narrowing down the antibiotics. Patient still intubated in ICU level of care. Exam/Review of Systems Vital Signs Vitals Vital Signs Date Time Temp Pulse Resp B/P Pulse Ox O2 Delivery O2 Flow Rate FiO2 02/23/17 09:00 71 18 100 40 02/23/17 08:30 128/85 Mechanical Ventilator 02/23/17 05:38 97.4 02/22/17 00:04 15.0 Intake and Output 02/22/17 02/22/17 02/23/17 15:00 23:00 07:00 Intake Total 50 ml Output Total 1400 ml 350 ml Balance -1400 ml -300 ml Exam Constitutional: other (Intubated and sedated), well developed Respiratory: diminished breath sounds (At the bases bilaterally), other ( Intubated, ) Cardiovascular: nl pulses, regular rate and rhythm Gastrointestinal: non-tender, soft Extremities: normal pulses, other (No edema, clubbing or cyanosis) Neurological: other (Sedated with Versed and intubated) Results Result Diagram: 02/23/1751902/23/1720 Results 24 hrs Laboratory Tests Test 02/22/17 14:00 02/22/17 22:00 02/23/17 05:00 02/23/17 05:20 Creatine Kinase 126 Creatine Kinase Index 2.9 Creatinine Kinase MB (Mass) 3.70 H Troponin I 0.324 *H Urine Opiates Screen Negative Urine Barbiturates Negative Urine Amphetamines Screen Negative Urine Benzodiazepines Screen Negative Urine Cocaine Screen Negative Urine Cannabinoids Negative Blood Gas Specimen Source Blood arterial Arterial Blood Date Drawn 02/23/2017 5:09:54 AM Arterial Blood pH (Temp corrected) 7.457 H Arterial Blood pCO2 (Temp correct) 33.8 L Arterial Blood pO2 (Temp corrected) 103.0 H Arterial Blood HCO3 23.3 Arterial Blood Base Excess 0 Arterial Blood Oxygen Saturation 97.9 Presley Test ACCEPTAB Arterial Blood Gas Puncture Site Right Radial Arterial Blood Carboxyhemoglobin 0.3 Arterial Blood Methemoglobin 0.3 Blood Gas A-a O2 Differential 143.3 H Oxyhemoglobin Percent 97.3 Total Hemoglobin 12.9 Blood Gas Temperature 37.0 Blood Gas Respiration Rate 18.0 Blood Gas Actual Respiration Rate 18 Blood Gas Modality VENT - AC FiO2 40.0 Blood Gas Tidal Volume 500.0 Blood Gas Low PEEP Setting 5.0 Blood Gas Inspiratory Pressure 22.0 Blood Gas Notified Whom RTR Blood Gas Notified Time 02/23/2017 5:33:00 AM White Blood Count 12.6 H Red Blood Count 3.69 L Hemoglobin 11.7 L Hematocrit 35.0 L Mean Corpuscular Volume 94.9 Mean Corpuscular Hemoglobin 31.7 Mean Corpuscular Hemoglobin Concent 33.4 Red Cell Distribution Width 13.3 Platelet Count 144 Mean Platelet Volume 11.3 H Neutrophils % 80.4 H Lymphocytes % 7.9 L Monocytes % 10.7 Eosinophils % 0.5 Basophils % 0.2 Nucleated Red Blood Cells % 0.0 Neutrophils # 10.1 H Lymphocytes # 1.0 Monocytes # 1.4 H Eosinophils # 0.1 Basophils # 0.0 Nucleated Red Blood Cells # 0.0 Sodium Level 144 Potassium Level 3.8 Chloride Level 111 H Carbon Dioxide Level 27 Anion Gap 10 Blood Urea Nitrogen 29 H Creatinine 1.22 Glucose Level 89 # Lactic Acid Level 1.4 Calcium Level 8.3 L Medications Medications Current Medications Levofloxacin/ Dextrose 150 ml @ 100 mls/hr Q24H IVPB Last administered on 23:55; Admin Dose 100 MLS/HR; Start 02/21/17 at 23:00 Sodium Chloride 1,000 ml @ 40 mls/hr Q24H IV Last administered on 02/22/17 23:35; Admin Dose 40 MLS/HR; Start 02/21/17 at 23:00 Propofol (Diprivan) 100 ml @ 2.25 mls/hr Q12H IV ; Start 02/21/17 at 23:00 Lorazepam (Ativan) 0.5 mg Q6H PRN IV AGITATION/ANXIETY Last administered on 04:47; Admin Dose 0.5 MG; Start 02/21/17 at 23:00 Metoprolol Tartrate 25 mg 25 mg BID NGT ; Start 02/22/17 at 09:00 Vancomycin HCl/ Sodium Chloride (Vancocin/NS) 250 ml @ 83.333 mls/ hr Q24H IVPB Last administered on 02/22/17 14:42; Admin Dose 83.333 MLS/HR; Start at 14:00 Aspirin 81 mg 81 mg DAILY NGT Last administered on 02/22/17 09:14; Admin Dose 81 MG; Start 02/22/17 at 09:00 Midazolam HCl (Versed) 50 ml @ 1 mls/hr TITRATE IV Last administered on 08:26; Admin Dose 10 MLS/HR; Start 02/22/17 at 20:30 Atorvastatin Calcium (Lipitor) 80 mg HS NGT Last administered on 12/10/17at 22: 43; Admin Dose 80 MG; Start 02/22/17 at 21:00 Furosemide (Lasix) 20 mg DAILY IV ; Start 02/23/17 at 10:00 NADIYA PABLO Feb 23, 2017 09:57
--- NOTE | 2017-02-23 10:50 | CONS ---
Date/Time of Note Date/Time of Note DATE: 02/23/17 TIME: 10:49 Consult Date/Type/Reason Admit Date/Time Feb 21, 2017 at 21:53 Initial Consult Date Type of Consultation: Pulm/CCM Subjective Patient remains intubated on mechanical ventilation appears comfortable. Objective Vital Signs Date Time Temp Pulse Resp B/P Pulse Ox O2 Delivery O2 Flow Rate FiO2 02/23/17 09:24 78 02/23/17 09:00 18 100 40 02/23/17 08:30 128/85 Mechanical Ventilator 02/23/17 05:38 97.4 02/22/17 00:04 15.0 Intake and Output 02/22/17 02/22/17 02/23/17 15:00 23:00 07:00 Intake Total 50 ml Output Total 1400 ml 350 ml Balance -1400 ml -300 ml Exam GENERAL: VITAL SIGNS: per chart NECK: Supple. No JVD or lymphadenopathy. CARDIAC EXAM: S1, S2. No added sounds or murmurs. CHEST: clear bilaterally, No added sounds, rales or wheezes ABDOMEN: Soft, nontender. No guarding or rebound. EXTREMITIES: No cyanosis, clubbing or edema. NEUROLOGIC: Generalized weakness. No focal deficits. Elderly gentleman intubated on mechanical ventilation comfortable. Results/Medications Result Diagram: 02/23/1751902/23/17519 Results 24 hrs Laboratory Tests Test 02/22/17 14:00 02/22/17 22:00 02/23/17 05:00 02/23/17 05:20 Creatine Kinase 126 Creatine Kinase Index 2.9 Creatinine Kinase MB (Mass) 3.70 H Troponin I 0.324 *H Urine Opiates Screen Negative Urine Barbiturates Negative Urine Amphetamines Screen Negative Urine Benzodiazepines Screen Negative Urine Cocaine Screen Negative Urine Cannabinoids Negative Blood Gas Specimen Source Blood arterial Arterial Blood Date Drawn 02/23/2017 5:09:54 AM Arterial Blood pH (Temp corrected) 7.457 H Arterial Blood pCO2 (Temp correct) 33.8 L Arterial Blood pO2 (Temp corrected) 103.0 H Arterial Blood HCO3 23.3 Arterial Blood Base Excess 0 Arterial Blood Oxygen Saturation 97.9 Presley Test ACCEPTAB Arterial Blood Gas Puncture Site Right Radial Arterial Blood Carboxyhemoglobin 0.3 Arterial Blood Methemoglobin 0.3 Blood Gas A-a O2 Differential 143.3 H Oxyhemoglobin Percent 97.3 Total Hemoglobin 12.9 Blood Gas Temperature 37.0 Blood Gas Respiration Rate 18.0 Blood Gas Actual Respiration Rate 18 Blood Gas Modality VENT - AC FiO2 40.0 Blood Gas Tidal Volume 500.0 Blood Gas Low PEEP Setting 5.0 Blood Gas Inspiratory Pressure 22.0 Blood Gas Notified Whom RTR Blood Gas Notified Time 02/23/2017 5:33:00 AM White Blood Count 12.6 H Red Blood Count 3.69 L Hemoglobin 11.7 L Hematocrit 35.0 L Mean Corpuscular Volume 94.9 Mean Corpuscular Hemoglobin 31.7 Mean Corpuscular Hemoglobin Concent 33.4 Red Cell Distribution Width 13.3 Platelet Count 144 Mean Platelet Volume 11.3 H Neutrophils % 80.4 H Lymphocytes % 7.9 L Monocytes % 10.7 Eosinophils % 0.5 Basophils % 0.2 Nucleated Red Blood Cells % 0.0 Neutrophils # 10.1 H Lymphocytes # 1.0 Monocytes # 1.4 H Eosinophils # 0.1 Basophils # 0.0 Nucleated Red Blood Cells # 0.0 Sodium Level 144 Potassium Level 3.8 Chloride Level 111 H Carbon Dioxide Level 27 Anion Gap 10 Blood Urea Nitrogen 29 H Creatinine 1.22 Glucose Level 89 # Lactic Acid Level 1.4 Calcium Level 8.3 L Medications Current Medications Levofloxacin/ Dextrose 150 ml @ 100 mls/hr Q24H IVPB Last administered on 23:55; Admin Dose 100 MLS/HR; Start 02/21/17 at 23:00 Sodium Chloride 1,000 ml @ 40 mls/hr Q24H IV Last administered on 02/22/17 23:35; Admin Dose 40 MLS/HR; Start 02/21/17 at 23:00 Propofol (Diprivan) 100 ml @ 2.25 mls/hr Q12H IV ; Start 02/21/17 at 23:00 Lorazepam (Ativan) 0.5 mg Q6H PRN IV AGITATION/ANXIETY Last administered on 04:47; Admin Dose 0.5 MG; Start 02/21/17 at 23:00 Metoprolol Tartrate 25 mg 25 mg BID NGT ; Start 02/22/17 at 09:00 Vancomycin HCl/ Sodium Chloride (Vancocin/NS) 250 ml @ 83.333 mls/ hr Q24H IVPB Last administered on 02/22/17 14:42; Admin Dose 83.333 MLS/HR; Start at 14:00 Aspirin 81 mg 81 mg DAILY NGT Last administered on 02/22/17 09:14; Admin Dose 81 MG; Start 02/22/17 at 09:00 Midazolam HCl (Versed) 50 ml @ 1 mls/hr TITRATE IV Last administered on 08:26; Admin Dose 10 MLS/HR; Start 02/22/17 at 20:30 Atorvastatin Calcium (Lipitor) 80 mg HS NGT Last administered on 02/22/17 22: 43; Admin Dose 80 MG; Start 02/22/17 at 21:00 Furosemide (Lasix) 20 mg DAILY IV ; Start 02/23/17 at 10:00 Famotidine (Pepcid Iv) 20 mg BID IV ; Start 02/23/17 at 11:00 Assessment/Plan Chief Complaint/Hosp Course IMP: 1. Acute on chronic hypoxemic and hypercapnic resp failure--due to ADHF in the setting of severe . Given the asymmetrical radiographic appearance cannot exclude a co-existing CAP or aspiration pneumonia 2. Type II NSTEMI/Demand Ischemia 3. UTI 4. HTN heart Disease RECS: 1. Broad antibiotic coverage with plans to de-escalate following culture results 2. Vent support; with plans to wean as tolerated await patient's neurological status to improve 3. Diuresis; following I/O and renal fxn 4. Obtain ECHO, cardiac risks 5. Replete lytes as needed 6. DVT and GI prophylaxis Critical care time 40 minutes. Problems: ILIA SINGLETARY MD, [facility] Feb 23, 2017 10:50
[2017-02-23] MEDS: FAMOTIDINE 20 MG INJ IV SCH ×2 (11:21→20:50)
[2017-02-23] MEDS: ASPIRIN 81 MG TAB NGT SCH (11:35)
[2017-02-23] MEDS: METOPROLOL 25 MG TAB NGT SCH ×2 (11:35→20:50)
[2017-02-23 11:36] LABS: CK-MB 2.1 ng/ml (0.0-2.4); TROPONIN-I 0.181 ng/ml (0.00-0.12)
--- NOTE | 2017-02-23 12:46 | CONS ---
DATE OF ADMISSION: 02/21/2017 DATE OF CONSULTATION: 02/23/2017 REASON FOR CONSULTATION: Congestive heart failure exacerbation, aortic stenosis. REQUESTING PHYSICIAN: Dr. Pablo. HISTORY OF PRESENT ILLNESS: Mr. Gilliam is an 81-year-old male with a history of critical aortic st enosis with last known valve air 0.4 with a mean gradient of 60 and an EF mildly depressed at 40%, p rior CVA, COPD, who presented with complaints of worsening shortness of breath associated with produ ctive cough. Upon arrival initially in the emergency department, temperature of 101.8, blood pressu re 160/122, pulse 118, saturating 95%, FIO2 of 80%. The patient's labs revealed a white count of 14 .1, hemoglobin 13.6, platelet count 162. Sodium of 145, potassium 4.3, creatinine 1.1, BUN 32. Tro ponin initially negative. ABG revealing a pH of 7.438, a PaO2 251, a pCO2 of 41. INR of 1.0. Toxi cology screen negative. UA positive. The patient underwent a chest x-ray revealing new diffuse inf iltrates involving the right greater than left lung, concerning for interstitial pneumonia without l obar consolidation. The patient, in the emergency department, required intubation and admit to the ICU. The patient now remains in the ICU, not on pressure support. The patient's labs thus far are notable for a blood culture positive for staph species. Patient's electrocardiogram revealed normal sinus rhythm, rate of 67, normal axis, normal intervals, left ventricular hypertrophy by voltage cr iteria with lateral T-wave inversions. Patient's labs are subclinically additionally notable for a now positive troponin at peak of 0.472 and down to 0.324. PAST MEDICAL HISTORY: As above in HPI. MEDICATIONS CURRENTLY IN HOSPITAL: 1. Pepcid 20 mg IV b.i.d. 2. Lasix 20 mg IV daily. 3. Lipitor 80 mg at bedtime. 4. Midazolam. 5. Toprol 25 mg p.o. b.i.d. as tolerated. 6. Aspirin 81 mg daily. 7. Levofloxacin. 8. Propofol. 9. Ativan. 10. Vancomycin. ALLERGIES: NO KNOWN DRUG ALLERGIES. SOCIAL HISTORY: Unknown tobacco, social ETOH, no illicit drug use. FAMILY HISTORY: No history of sudden cardiac or early CAD. REVIEW OF SYSTEMS: As above in HPI. CONSTITUTIONAL: No fevers, chills. PULMONARY: Respiratory failure, status post intubation. GASTROINTESTINAL: No vomiting. GENITOURINARY: No hematuria, mild insufficiency. PSYCHIATRIC: No documented psych history. NEUROLOGIC: History of cerebrovascular accident. PHYSICAL EXAMINATION: VITAL SIGNS: Temperature of 98.8, blood pressure initially 120/85, pulse 60, respiration 18, satura ting 100%, FIO2 of 40%. GENERAL: The patient is intubated and sedated. NECK: JVP approximately 10 cm water. CHEST: Upper airway sounds are rhonchorous sounds. HEART: Regular rate and rhythm. Normal S1, increased S2, II/ systolic murmur radiating to caroti ds consistent with aortic stenosis. Absent second heart sounds. ABDOMEN: Positive bowel sounds, soft. EXTREMITIES: Trace edema, 1+ pulses bilaterally, posterior tibial. LABORATORY DATA: Most recent from today, sodium 144, potassium 3.8, creatinine 1.2, BUN 29. Tropon in down to 0.324 from 0.472. White blood cell count 12.6, hemoglobin 11.7, platelet count 144. IMAGING STUDIES: Chest x-ray from the revealing ET NG tube appearing in satisfactory position, decreased bilateral perihilar infiltrates or edema, bibasilar opacities. The patient's electrocard iogram as above in HPI. No further electrocardiograms for my review at this time. IMPRESSION: 1. Congestive heart failure exacerbation. 2. Systolic, acute on chronic echocardiogram 01/2017. 3. Positive troponin, minimal in the setting of known critical aortic stenosis, respiratory failure , mild renal insufficiency. 4. Abnormal electrocardiogram with lateral T-wave inversions in the setting of left ventricular hyp ertrophy. 5. Respiratory failure. 6. Staph bacteremia. 7. Dyslipidemia. 8. Anemia. RECOMMENDATIONS: 1. At this time, would maintain the patient on telemetry monitoring to follow rhythm and rate close ly. 2. Continue to trend the patient's cardiac enzymes, assess for any significant ongoing cardiac thiago ge. 3. Continue the patient's current aspirin and will consider low dose Lovenox. 4. Continue the patient's Lasix diuresis. 5. Continue the patient's statin therapy and adjust it according to a fasting lipid panel that has been checked. 6. Continue to check serial EKGs to assess for any significant ongoing changes. 7. Continue the patient's antibiotics and follow up all culture data sensitivities and speciation. 8. No indication for a repeat echocardiogram at this time given repeat echocardiogram just done les s than a month ago. 9. Would continue to trend the patient's cardiac enzymes to assess for any significant ongoing card iac damage. Thank you for allowing me to take part in the care of this patient. I will continue to follow very closely with you with further recommendations to be made through his inpatient hospital clinical cou rse. Dictated By: DEMIAN COURTNEY/MARIN Conf#: [id number] DID#: [id number] CC: NADIYA PABLO MD;*EndCC*
[2017-02-23] MEDS: VANCOMYCIN 1.25 GM in SOD CHLORIDE 0.9% 250 ML IVPB SCH (15:16)
[2017-02-23] MEDS: FUROSEMIDE 20 MG INJ IV SCH (18:06)
[2017-02-23] MEDS: ATORVASTATIN 80 MG TAB NGT SCH (20:50)
[2017-02-23] MEDS: PROPOFOL 100 ML IV SCH (23:00)
[2017-02-23] MEDS: SOD CHLORIDE 0.9% 1,000 ML IV SCH (23:18)
[2017-02-23] MEDS: LEVOFLOXACIN 750MG/D5W (PMX) 150 ML IVPB SCH (23:39)
[2017-02-24] VITALS (39 sets, daily range): BP systolic 106–143; BP diastolic 67–104; PULSE 60–133; RESP 0–37
[2017-02-24 01:23] LABS: CK-MB 0.97 ng/ml (0.0-2.4); TROPONIN-I 0.201 ng/ml (0.00-0.12)
[2017-02-24] MEDS: MIDAZOLAM (DRIP) 50 mg/50 mL 50 ML IV SCH ×2 (02:05→07:07)
[2017-02-24 05:05] LABS: BASOPHILS % 0.4 % (0.0-2.0); EOSINOPHILS # 0.1 10^3/ul (0.0-0.5); HEMATOCRIT 34.7 % (42.0-52.0); HEMOGLOBIN 11.5 g/dl (14.0-18.0); LYMPHOCYTES # 0.9 10^3/ul (0.8-2.9); LYMPHOCYTES % 11.4 % (15.0-51.0); MEAN CORPUSCULAR HEMOGLOBIN 31.7 pg (29.0-33.0); MEAN CORPUSCULAR HGB CONC 33.1 g/dl (32.0-37.0); MEAN CORPUSCULAR VOLUME 95.6 fl (82.0-101.0); MONOCYTES % 12.9 % (0.0-11.0); NEUTROPHIL # 5.9 10^3/ul (1.6-7.5); NEUTROPHILS % 73.9 % (39.0-77.0); PLATELET COUNT 142 10^3/UL (140-415); RED BLOOD COUNT 3.63 10^6/ul (4.70-6.10); RED CELL DISTRIBUTION WIDTH 13.5 % (11.5-14.5)
[2017-02-24 05:27] LABS: CHOL/HDL RATIO 3.4 RATIO
[2017-02-24 05:28] LABS: MAGNESIUM 1.9 mg/dl (1.7-2.5); PHOSPHORUS 2.2 mg/dl (2.5-4.9)
[2017-02-24 05:42] LABS: CK-MB 1.06 ng/ml (0.0-2.4); TROPONIN-I 0.222 ng/ml (0.00-0.12)
[2017-02-24] MEDS: FUROSEMIDE 20 MG INJ IV SCH ×2 (05:46→18:20)
[2017-02-24 07:03] LABS: ALBUMIN 2.8 g/dl (3.3-4.9); ALBUMIN/GLOBULIN RATIO 0.87; BILIRUBIN,INDIRECT 0.5 mg/dl (0-1.1); BILIRUBIN,TOTAL 0.5 mg/dl (0.2-1.3); CALCIUM 8.3 mg/dl (8.4-10.2); CREATININE 1.26 mg/dl (0.61-1.24); POTASSIUM 3.7 mmol/L (3.5-5.1)
--- NOTE | 2017-02-24 08:42 | CONS ---
Date/Time of Note Date/Time of Note DATE: 02/24/17 TIME: 08:39 Assessment/Plan Assessment/Plan Additional Assessment/Plan 1. Congestive heart failure exacerbation- acute on chronic, better fluid status now 2. Systolic, acute on chronic echocardiogram 01/2017 - improve 3. Positive troponin, minimal in the setting of known critical aortic stenosis , respiratory failure, mild renal insufficiency - no intervention planned. 4. Abnormal electrocardiogram with lateral T-wave inversions in the setting of left ventricular hypertrophy. 5. Respiratory failure - intubated, con't resp Rx. 6. Staph bacteremia- on anti-Bx 7. Dyslipidemia. 8. Anemia. 9. AoS - severe 0.4 cm2 - will monitor clinically - avoid low BP as possible Consultation Date/Type/Reason Admit Date/Time Feb 21, 2017 at 21:53 Initial Consult Date Type of Consultation: Pulm/CCM 24 HR Interval Summary Free Text/Dictation NO acute events - improved fluid staus - con't anti-bx and respiratory care ROS: No fever, + chills, no nausea, no vomiting, no diarrhea/constipation No recent weight changes No chest pain, no PND, no orthopnea, intub No dizziness, blurred vision No thirst, no heat or cold intolerance (per nurse) Exam/Review of Systems Vital Signs Vitals Vital Signs Date Time Temp Pulse Resp B/P Pulse Ox O2 Delivery O2 Flow Rate FiO2 02/24/17 07:00 63 16 123/78 100 Mechanical Ventilator 02/24/17 05:18 30 02/24/17 04:00 97.8 02/22/17 00:04 15.0 Intake and Output 02/23/17 02/23/17 02/24/17 15:00 23:00 07:00 Intake Total 360 ml 690 ml 400 ml Output Total 313 ml 1035 ml 825 ml Balance 47 ml -345 ml -425 ml Exam General: WN/WD/NAD, AOx 0 HEENT: Unicetric/atraumatic/EOMI (does not follow commands) NECK: JVD elevated, no thyromegaly, intub Lymph: no lymphadenopathy HEART: regular with no S3, II/ systolic murmur at apex 2/6 m at base with delayed upstroke LUNGS: Coarse sounds ABD: soft, NT, ND, +BS : Intact Neuro: non focal SKIN: chronic changes EXT: trace edema Results Result Diagram: 02/24/17 0400 02/24/17 0400 Results 24 hrs Laboratory Tests Test 02/23/17 10:36 02/24/17 00:27 02/24/17 04:00 Creatine Kinase 60 47 40 Creatine Kinase Index 3.5 2.1 2.7 Creatinine Kinase MB (Mass) 2.10 0.97 1.06 Troponin I 0.181 *H 0.201 *H 0.222 *H White Blood Count 8.0 # Red Blood Count 3.63 L Hemoglobin 11.5 L Hematocrit 34.7 L Mean Corpuscular Volume 95.6 Mean Corpuscular Hemoglobin 31.7 Mean Corpuscular Hemoglobin Concent 33.1 Red Cell Distribution Width 13.5 Platelet Count 142 Mean Platelet Volume 12.0 H Neutrophils % 73.9 Lymphocytes % 11.4 L Monocytes % 12.9 H Eosinophils % 1.0 Basophils % 0.4 Nucleated Red Blood Cells % 0.0 Neutrophils # 5.9 Lymphocytes # 0.9 Monocytes # 1.0 H Eosinophils # 0.1 Basophils # 0.0 Nucleated Red Blood Cells # 0.0 Sodium Level 144 Potassium Level 3.7 Chloride Level 109 Carbon Dioxide Level 27 Anion Gap 12 Blood Urea Nitrogen 26 H Creatinine 1.26 H Glucose Level 67 #L Calcium Level 8.3 L Phosphorus Level 2.2 L Magnesium Level 1.9 Total Bilirubin 0.5 Direct Bilirubin 0.00 Indirect Bilirubin 0.5 Aspartate Amino Transf (AST/SGOT) 28 Alanine Aminotransferase (ALT/SGPT) 32 Alkaline Phosphatase 68 Total Protein 6.0 L Albumin 2.8 L Globulin 3.20 Albumin/Globulin Ratio 0.87 Triglycerides Level 72 Cholesterol Level 100 LDL Cholesterol, Calculated 57 HDL Cholesterol 29 L Cholesterol/HDL Ratio 3.4 Medications Medications Current Medications Levofloxacin/ Dextrose 150 ml @ 100 mls/hr Q24H IVPB Last administered on 23:39; Admin Dose 100 MLS/HR; Start 02/21/17 at 23:00 Sodium Chloride 1,000 ml @ 40 mls/hr Q24H IV Last administered on 02/23/17 23:18; Admin Dose 40 MLS/HR; Start 02/21/17 at 23:00 Propofol (Diprivan) 100 ml @ 2.25 mls/hr Q12H IV ; Start 02/21/17 at 23:00 Lorazepam (Ativan) 0.5 mg Q6H PRN IV AGITATION/ANXIETY Last administered on 04:47; Admin Dose 0.5 MG; Start 02/21/17 at 23:00 Metoprolol Tartrate 25 mg 25 mg BID NGT ; Start 02/22/17 at 09:00 Vancomycin HCl/ Sodium Chloride (Vancocin/NS) 250 ml @ 83.333 mls/ hr Q24H IVPB Last administered on 02/23/17 15:16; Admin Dose 83.333 MLS/HR; Start at 14:00 Aspirin 81 mg 81 mg DAILY NGT Last administered on 02/23/17 11:35; Admin Dose 81 MG; Start 02/22/17 at 09:00 Midazolam HCl (Versed) 50 ml @ 1 mls/hr TITRATE IV Last administered on 07:07; Admin Dose 10 MLS/HR; Start 02/22/17 at 20:30 Atorvastatin Calcium (Lipitor) 80 mg HS NGT Last administered on 02/23/17 20: 50; Admin Dose 80 MG; Start 02/22/17 at 21:00 Famotidine (Pepcid Iv) 20 mg BID IV Last administered on 02/23/17 20:50; Admin Dose 20 MG; Start 02/23/17 at 11:00 Enoxaparin Sodium (Lovenox) 40 mg DAILY SC ; Start 02/24/17 at 09:00 Miscellaneous Information 1 ONCE ONCE XX ; Start 02/24/17 at 13:00; Stop 03/01 at 13:01 Dextrose/Sodium Chloride (D5-1/2ns) 1,000 ml @ 50 mls/hr Q20H IV ; Start 02/24 at 09:00; Status DEMETRIS GUIDRY MD Feb 24, 2017 08:42
[2017-02-24] MEDS ORDERED: ENOXAPARIN 40 MG/0.4 ML SYG SC SCH (09:00)
[2017-02-24] MEDS: FAMOTIDINE 20 MG INJ IV SCH (09:07)
[2017-02-24] MEDS: DEXTROSE 5%-0.45% NACL 1,000 ML IV SCH (09:07)
[2017-02-24] MEDS: ASPIRIN 81 MG TAB NGT SCH (09:07)
[2017-02-24] MEDS: METOPROLOL 25 MG TAB NGT SCH ×2 (09:08→20:13)
--- NOTE | 2017-02-24 09:52 | PN ---
Date/Time of Note Date/Time of Note DATE: 02/24/17 TIME: 09:38 Assessment/Plan VTE Prophylaxis VTE Prophylaxis Intervention: SCD's Lines/Catheters IV [facility]from [facility] Peripheral IV Urinary Cath still in place: Yes Reason Cath still needed: other (indicate) (Diuresis) Assessment/Plan Assessment/Plan 81-year-old male with: 1. Staphylococcus aureus sepsis with confirm bacteremia and UTI. Final sensitivities pending. Patient will be maintained on Levaquin and vancomycin for now until final sensitivities available for Staphylococcus aureus. Patient has been stable for the past 48 hours, plan for CPAP trial today. 2. Acute respiratory failure, hypoxemic, secondary to volume overload and flash pulmonary edema also possibly with CAP versus aspiration pneumonia. Patient has been diuresed well, patient on low-dose Lasix, lung sounds sound much better. CPAP trial and hopefully to be extubated today. Continue current antibiotics, Levaquin and vancomycin. Appreciate recommendations from pulmonary/critical care 3. Acute on chronic systolic dysfunction congestive heart failure, ejection fraction 40% and critical aortic stenosis awaiting referral for TAVR procedure Patient did go into flash pulmonary edema with resuscitation in the emergency department, he has been diuresing well Continue all the medications for now. Renal function stable so far. 4. Elevated troponin, in setting of acute respiratory failure and known critical aortic stenosis. Appreciate recommendations from cardiology, medical management. Prophylaxis: Pepcid for GI prophylaxis, SCDs for DVT prophylaxis Disposition: Hopefully will weaning off the ventilator today and get extubated. Subjective 24 Hr Interval Summary Free Text/Dictation Patient remained stable, he has been diuresing very well, with his change of IV fluids and very low rate and with the dextrose. CPAP trial today and hopefully patient will be extubated today. Exam/Review of Systems Vital Signs Vitals Vital Signs Date Time Temp Pulse Resp B/P Pulse Ox O2 Delivery O2 Flow Rate FiO2 02/24/17 07:00 63 16 123/78 100 Mechanical Ventilator 02/24/17 05:18 30 02/24/17 04:00 97.8 02/22/17 00:04 15.0 Intake and Output 02/23/17 02/23/17 02/24/17 15:00 23:00 07:00 Intake Total 360 ml 690 ml 400 ml Output Total 313 ml 1035 ml 825 ml Balance 47 ml -345 ml -425 ml Exam Constitutional: other (Sedated and intubated) Respiratory: clear to auscultation, other (Intubated on mechanical ventilation) Cardiovascular: murmurs/extra sounds (Critical ), nl pulses, regular rate and rhythm Gastrointestinal: non-tender, soft Musculoskeletal: nl extremities to inspection Extremities: normal pulses, other (No edema, clubbing or cyanosis) Neurological: other (Sedated and intubated) Results Result Diagram: 02/24/17 0400 02/24/17 0400 Results 24 hrs Laboratory Tests Test 02/23/17 10:36 02/24/17 00:27 02/24/17 04:00 02/24/17 08:40 Creatine Kinase 60 47 40 Creatine Kinase Index 3.5 2.1 2.7 Creatinine Kinase MB (Mass) 2.10 0.97 1.06 Troponin I 0.181 *H 0.201 *H 0.222 *H White Blood Count 8.0 # Red Blood Count 3.63 L Hemoglobin 11.5 L Hematocrit 34.7 L Mean Corpuscular Volume 95.6 Mean Corpuscular Hemoglobin 31.7 Mean Corpuscular Hemoglobin Concent 33.1 Red Cell Distribution Width 13.5 Platelet Count 142 Mean Platelet Volume 12.0 H Neutrophils % 73.9 Lymphocytes % 11.4 L Monocytes % 12.9 H Eosinophils % 1.0 Basophils % 0.4 Nucleated Red Blood Cells % 0.0 Neutrophils # 5.9 Lymphocytes # 0.9 Monocytes # 1.0 H Eosinophils # 0.1 Basophils # 0.0 Nucleated Red Blood Cells # 0.0 Sodium Level 144 Potassium Level 3.7 Chloride Level 109 Carbon Dioxide Level 27 Anion Gap 12 Blood Urea Nitrogen 26 H Creatinine 1.26 H Glucose Level 67 #L Calcium Level 8.3 L Phosphorus Level 2.2 L Magnesium Level 1.9 Total Bilirubin 0.5 Direct Bilirubin 0.00 Indirect Bilirubin 0.5 Aspartate Amino Transf (AST/SGOT) 28 Alanine Aminotransferase (ALT/SGPT) 32 Alkaline Phosphatase 68 Total Protein 6.0 L Albumin 2.8 L Globulin 3.20 Albumin/Globulin Ratio 0.87 Triglycerides Level 72 Cholesterol Level 100 LDL Cholesterol, Calculated 57 HDL Cholesterol 29 L Cholesterol/HDL Ratio 3.4 Bedside Glucose 71 Medications Medications Current Medications Levofloxacin/ Dextrose 150 ml @ 100 mls/hr Q24H IVPB Last administered on t 23:39; Admin Dose 100 MLS/HR; Start 02/21/17 at 23:00 Sodium Chloride 1,000 ml @ 40 mls/hr Q24H IV Last administered on 02/23/17 23:18; Admin Dose 40 MLS/HR; Start 02/21/17 at 23:00 Propofol (Diprivan) 100 ml @ 2.25 mls/hr Q12H IV ; Start 02/21/17 at 23:00 Lorazepam (Ativan) 0.5 mg Q6H PRN IV AGITATION/ANXIETY Last administered on 04:47; Admin Dose 0.5 MG; Start 02/21/17 at 23:00 Metoprolol Tartrate 25 mg 25 mg BID NGT Last administered on 02/24/17 09:08; Admin Dose 25 MG; Start 02/22/17 at 09:00 Vancomycin HCl/ Sodium Chloride (Vancocin/NS) 250 ml @ 83.333 mls/ hr Q24H IVPB Last administered on 02/23/17 15:16; Admin Dose 83.333 MLS/HR; Start at 14:00 Aspirin 81 mg 81 mg DAILY NGT Last administered on 02/24/17 09:07; Admin Dose 81 MG; Start 02/22/17 at 09:00 Midazolam HCl (Versed) 50 ml @ 1 mls/hr TITRATE IV Last administered on 07:07; Admin Dose 10 MLS/HR; Start 02/22/17 at 20:30 Atorvastatin Calcium (Lipitor) 80 mg HS NGT Last administered on 02/23/17 20: 50; Admin Dose 80 MG; Start 02/22/17 at 21:00 Famotidine (Pepcid Iv) 20 mg BID IV Last administered on 02/24/17 09:07; Admin Dose 20 MG; Start 02/23/17 at 11:00 Enoxaparin Sodium (Lovenox) 40 mg DAILY SC Last administered on 02/24/17 09: 10; Admin Dose 40 MG; Start 02/24/17 at 09:00 Miscellaneous Information 1 ONCE ONCE XX ; Start 02/24/17 at 13:00; Stop 03/01 at 13:01 Dextrose/Sodium Chloride (D5-1/2ns) 1,000 ml @ 50 mls/hr Q20H IV Last administered on 02/24/17t 09:07; Admin Dose 50 MLS/HR; Start 02/24/17 at 09:00 NADIYA PABLO Feb 24, 2017 09:49
--- NOTE | 2017-02-24 10:20 | CONS ---
Date/Time of Note Date/Time of Note DATE: 02/24/17 TIME: : Consult Date/Type/Reason Admit Date/Time Feb 21, 2017 at 21:53 Type of Consultation: Pulm/CCM Subjective Comfortable this morning on vent. Objective Vital Signs Date Time Temp Pulse Resp B/P Pulse Ox O2 Delivery O2 Flow Rate FiO2 02/24/17 08:00 66 02/24/17 07:00 16 123/78 100 Mechanical Ventilator 02/24/17 05:18 30 02/24/17 04:00 97.8 02/22/17 00:04 15.0 Intake and Output 02/23/17 02/23/17 02/24/17 15:00 23:00 07:00 Intake Total 360 ml 690 ml 400 ml Output Total 313 ml 1035 ml 825 ml Balance 47 ml -345 ml -425 ml Exam GENERAL: Elderly gentleman intubated on mechanical ventilation comfortable. VITAL SIGNS: per chart NECK: Supple. No JVD or lymphadenopathy. CARDIAC EXAM: S1, S2. No added sounds or murmurs. CHEST: clear bilaterally, No added sounds, rales or wheezes ABDOMEN: Soft, nontender. No guarding or rebound. EXTREMITIES: No cyanosis, clubbing or edema. NEUROLOGIC: Generalized weakness. No focal deficits. Results/Medications Result Diagram: 02/24/1739902/24/17 0400 Results 24 hrs Laboratory Tests Test 02/23/17 10:36 02/24/17 00:27 02/24/17 04:00 02/24/17 08:40 Creatine Kinase 60 47 40 Creatine Kinase Index 3.5 2.1 2.7 Creatinine Kinase MB (Mass) 2.10 0.97 1.06 Troponin I 0.181 *H 0.201 *H 0.222 *H White Blood Count 8.0 # Red Blood Count 3.63 L Hemoglobin 11.5 L Hematocrit 34.7 L Mean Corpuscular Volume 95.6 Mean Corpuscular Hemoglobin 31.7 Mean Corpuscular Hemoglobin Concent 33.1 Red Cell Distribution Width 13.5 Platelet Count 142 Mean Platelet Volume 12.0 H Neutrophils % 73.9 Lymphocytes % 11.4 L Monocytes % 12.9 H Eosinophils % 1.0 Basophils % 0.4 Nucleated Red Blood Cells % 0.0 Neutrophils # 5.9 Lymphocytes # 0.9 Monocytes # 1.0 H Eosinophils # 0.1 Basophils # 0.0 Nucleated Red Blood Cells # 0.0 Sodium Level 144 Potassium Level 3.7 Chloride Level 109 Carbon Dioxide Level 27 Anion Gap 12 Blood Urea Nitrogen 26 H Creatinine 1.26 H Glucose Level 67 #L Calcium Level 8.3 L Phosphorus Level 2.2 L Magnesium Level 1.9 Total Bilirubin 0.5 Direct Bilirubin 0.00 Indirect Bilirubin 0.5 Aspartate Amino Transf (AST/SGOT) 28 Alanine Aminotransferase (ALT/SGPT) 32 Alkaline Phosphatase 68 Total Protein 6.0 L Albumin 2.8 L Globulin 3.20 Albumin/Globulin Ratio 0.87 Triglycerides Level 72 Cholesterol Level 100 LDL Cholesterol, Calculated 57 HDL Cholesterol 29 L Cholesterol/HDL Ratio 3.4 Bedside Glucose 71 Medications Current Medications Sodium Chloride 1,000 ml @ 40 mls/hr Q24H IV Last administered on 02/23/17 23:18; Admin Dose 40 MLS/HR; Start 02/21/17 at 23:00 Propofol (Diprivan) 100 ml @ 2.25 mls/hr Q12H IV ; Start 02/21/17 at 23:00 Lorazepam (Ativan) 0.5 mg Q6H PRN IV AGITATION/ANXIETY Last administered on 04:47; Admin Dose 0.5 MG; Start 02/21/17 at 23:00 Metoprolol Tartrate 25 mg 25 mg BID NGT Last administered on 02/24/17 09:08; Admin Dose 25 MG; Start 02/22/17 at 09:00 Vancomycin HCl/ Sodium Chloride (Vancocin/NS) 250 ml @ 83.333 mls/ hr Q24H IVPB Last administered on 02/23/17 15:16; Admin Dose 83.333 MLS/HR; Start at 14:00 Aspirin 81 mg 81 mg DAILY NGT Last administered on 02/24/17 09:07; Admin Dose 81 MG; Start 02/22/17 at 09:00 Midazolam HCl (Versed) 50 ml @ 1 mls/hr TITRATE IV Last administered on 07:07; Admin Dose 10 MLS/HR; Start 02/22/17 at 20:30 Atorvastatin Calcium (Lipitor) 80 mg HS NGT Last administered on 02/23/17 20: 50; Admin Dose 80 MG; Start 02/22/17 at 21:00 Enoxaparin Sodium (Lovenox) 40 mg DAILY SC Last administered on 02/24/17 09: 10; Admin Dose 40 MG; Start 02/24/17 at 09:00 Miscellaneous Information 1 ONCE ONCE XX ; Start 02/24/17 at 13:00; Stop 03/01 at 13:01 Dextrose/Sodium Chloride 1,000 ml @ 50 mls/hr Q20H IV Last administered on 09:07; Admin Dose 50 MLS/HR; Start 02/24/17 at 09:00 Levofloxacin/ Dextrose (Levaquin 750 Mg/ D5W 150 ml (Pmx)) 150 ml @ 100 mls/hr Q48H IVPB ; Start 02/25/17 at 23:00 Famotidine (Pepcid) 20 mg DAILY NGT ; Start 02/25/17 at 09:00 Assessment/Plan Chief Complaint/Hosp Course IMP: 1. Acute on chronic hypoxemic and hypercapnic resp failure--due to ADHF in the setting of severe . Given the asymmetrical radiographic appearance cannot exclude a co-existing CAP or aspiration pneumonia 2. Type II NSTEMI/Demand Ischemia 3. UTI 4. HTN heart Disease RECS: 1. Broad antibiotic coverage with plans to de-escalate following culture results 2. CPAP trial this morning. 3. Diuresis as tolerated. 4. Cardiac recs. 5. Replete lytes as needed 6. DVT and GI prophylaxis 7. Post extubation IS/ ST eval/ PT eval. Critical care time 40 minutes. Problems: ILIA SINGLETARY MD, [facility] Feb 24, 2017 10:20
[2017-02-24 13:33] LABS: AADO2 Arterial 78.8 mmHg (7.0-24.0); Allen Test ACCEPTAB; Arterial Base Excess -0.5 mmol/L (-3.0-3); Arterial COHb 0.3 % (0.0-3.0); Arterial Fraction of Oxyhgb 96.9 % (93.0-99.0); Arterial HCO3 22.7 mmol/L (22.0-26.0); Arterial MetHb 0.2 % (0.0-1.5); Arterial Total Hemglobin 12.6 g/dl (12.0-18.0); Blood Gas PS 10; MODE VENT - CPAP
[2017-02-24 14:52] LABS: CK-MB 0.97 ng/ml (0.0-2.4); TROPONIN-I 0.175 ng/ml (0.00-0.12)
[2017-02-24] MEDS ORDERED: AMIODARONE 900 MG in DEXTROSE 5% 482 ML IV SCH (16:30)
[2017-02-24] MEDS: VANCOMYCIN 1.25 GM in SOD CHLORIDE 0.9% 250 ML IVPB SCH (16:48)
[2017-02-24] MEDS: ATORVASTATIN 80 MG TAB NGT SCH (20:13)
[2017-02-24] MEDS: ENOXAPARIN 30 MG/0.3 ML SYG SC SCH (21:07)
--- NOTE | 2017-02-24 21:47 | RADRPT ---
Vent Rate: 75 bpm RR Interval: 0 msec SC Interval: 178 msec QRS Duration: 92 msec QT Interval: 398 msec QTC Interval: 444 msec P-R-T [place]: 22 - 50 - 0 degrees Normal sinus rhythm Left ventricular hypertrophy with repolarization abnormality Abnormal ECG Electronically Signed By: Damián Bailey [id number]
[2017-02-24] MEDS ORDERED: ACETAMINOPHEN 325 MG TAB PO PRN (22:00)
[2017-02-24] MEDS: SOD CHLORIDE 0.9% 1,000 ML IV SCH (23:00)
[2017-02-25] VITALS (19 sets, daily range): BP systolic 100–175; BP diastolic 75–101; PULSE 54–99; RESP 13–29
[2017-02-25] MEDS: DEXTROSE 5%-0.45% NACL 1,000 ML IV SCH (05:00)
[2017-02-25 05:30] LABS: BASOPHILS % 0.5 % (0.0-2.0); EOSINOPHILS # 0.1 10^3/ul (0.0-0.5); EOSINOPHILS % 1.3 % (0.0-7.0); HEMATOCRIT 36.5 % (42.0-52.0); HEMOGLOBIN 12.1 g/dl (14.0-18.0); LYMPHOCYTES # 1.2 10^3/ul (0.8-2.9); LYMPHOCYTES % 14.1 % (15.0-51.0); MEAN CORPUSCULAR HEMOGLOBIN 31.4 pg (29.0-33.0); MEAN CORPUSCULAR HGB CONC 33.2 g/dl (32.0-37.0); MEAN CORPUSCULAR VOLUME 94.8 fl (82.0-101.0); MEAN PLATELET VOLUME 11.4 fl (7.4-10.4); MONOCYTE # 1.2 10^3/ul (0.3-0.9); MONOCYTES % 14.5 % (0.0-11.0); NEUTROPHIL # 5.9 10^3/ul (1.6-7.5); NEUTROPHILS % 69.2 % (39.0-77.0); PLATELET COUNT 144 10^3/UL (140-415); RED BLOOD COUNT 3.85 10^6/ul (4.70-6.10); RED CELL DISTRIBUTION WIDTH 13.2 % (11.5-14.5); WHITE BLOOD COUNT 8.5 10^3/ul (4.8-10.8)
[2017-02-25] MEDS: FUROSEMIDE 20 MG INJ IV SCH ×2 (05:54→17:46)
[2017-02-25 05:55] LABS: PHOSPHORUS 3.1 mg/dl (2.5-4.9)
[2017-02-25 05:59] LABS: CALCIUM 8.5 mg/dl (8.4-10.2); CREATININE 1.15 mg/dl (0.61-1.24); POTASSIUM 3.2 mmol/L (3.5-5.1)
[2017-02-25 06:36] LABS: CK-MB 4.62 ng/ml (0.0-2.4); TROPONIN-I 0.744 ng/ml (0.00-0.12)
--- NOTE | 2017-02-25 11:05 | CONS ---
Date/Time of Note Date/Time of Note DATE: 02/25/17 TIME: 11:01 Assessment/Plan Assessment/Plan Additional Assessment/Plan 1. Congestive heart failure exacerbation- acute on chronic, better fluid status now - much better now 2. Systolic, acute on chronic echocardiogram 01/2017 - improve - better fluid status now. 3. Positive troponin, minimal in the setting of known critical aortic stenosis , respiratory failure, mild renal insufficiency - no intervention planned. 4. Abnormal electrocardiogram with lateral T-wave inversions in the setting of left ventricular hypertrophy. 5. Respiratory failure - intubated, con't resp Rx. 6. Staph bacteremia- on anti-Bx 7. Dyslipidemia. 8. Anemia. 9. AoS - severe 0.4 cm2 - will monitor clinically - avoid low BP as possible 10. Tachg, SVT - much better now - on Med Rx. Consultation Date/Type/Reason Admit Date/Time Feb 21, 2017 at 21:53 Type of Consultation: Pulm/CCM 24 HR Interval Summary Free Text/Dictation Much better now - improved HR - will monitor clinically ROS: No fever, no chills, no nausea, no vomiting, no diarrhea/constipation No recent weight changes No chest pain, no PND, no orthopnea No dizziness, blurred vision No thirst, no heat or cold intolerance Exam/Review of Systems Vital Signs Vitals Vital Signs Date Time Temp Pulse Resp B/P Pulse Ox O2 Delivery O2 Flow Rate FiO2 02/25/17 08:00 64 02/25/17 06:00 22 128/80 97 Room Air 02/25/17 05:00 2.0 02/25/17 04:00 98.6 02/24/17 13:35 30 Intake and Output 02/24/17 02/24/17 02/25/17 14:59 22:59 06:59 Intake Total 426 ml 483.6 ml 508.38 ml Output Total 1425 ml 1350 ml 320 ml Balance -999 ml -866.4 ml 188.38 ml Exam General: WN/WD/NAD, AOx 3 HEENT: Unicetric/atraumatic/EOMI ( follows commands) NECK: JVD elevated, no thyromegaly Lymph: no lymphadenopathy HEART: regular with no S3, II/ systolic murmur at apex, syst 2/6 m at base LUNGS: Coarse sounds ABD: soft, NT, ND, +BS : Intact Neuro: non focal SKIN: chronic changes EXT: trace edema Results Result Diagram: 02/25/17 0459 02/25/17 0459 Results 24 hrs Laboratory Tests Test 02/24/17 12:50 02/24/17 13:41 02/25/17 04:59 Blood Gas Specimen Source Blood arterial Arterial Blood Date Drawn 02/24/2017 1:20:29 PM Arterial Blood pH (Temp corrected) 7.460 H Arterial Blood pCO2 (Temp correct) 32.6 L Arterial Blood pO2 (Temp corrected) 96.8 H Arterial Blood HCO3 22.7 Arterial Blood Base Excess -0.5 Arterial Blood Oxygen Saturation 97.4 Presley Test ACCEPTAB Arterial Blood Gas Puncture Site Right Radial Arterial Blood Carboxyhemoglobin 0.3 Arterial Blood Methemoglobin 0.2 Blood Gas A-a O2 Differential 78.8 H Oxyhemoglobin Percent 96.9 Total Hemoglobin 12.6 Blood Gas Temperature 37.0 Blood Gas Actual Respiration Rate 17 Blood Gas Modality VENT - CPAP FiO2 30.0 Blood Gas Low PEEP Setting 5.0 Blood Gas Pressure Support 10 Blood Gas Notified Whom JLD Blood Gas Notified Time 02/24/2017 1:33:02 PM Creatine Kinase 42 121 Creatine Kinase Index 2.3 3.8 Creatinine Kinase MB (Mass) 0.97 4.62 H Troponin I 0.175 *H 0.744 *H Vancomycin Level Trough 9.8 L White Blood Count 8.5 Red Blood Count 3.85 L Hemoglobin 12.1 L Hematocrit 36.5 L Mean Corpuscular Volume 94.8 Mean Corpuscular Hemoglobin 31.4 Mean Corpuscular Hemoglobin Concent 33.2 Red Cell Distribution Width 13.2 Platelet Count 144 Mean Platelet Volume 11.4 H Neutrophils % 69.2 Lymphocytes % 14.1 L Monocytes % 14.5 H Eosinophils % 1.3 Basophils % 0.5 Nucleated Red Blood Cells % 0.0 Neutrophils # 5.9 Lymphocytes # 1.2 Monocytes # 1.2 H Eosinophils # 0.1 Basophils # 0.0 Nucleated Red Blood Cells # 0.0 Sodium Level 146 H Potassium Level 3.2 L Chloride Level 109 Carbon Dioxide Level 28 Anion Gap 12 Blood Urea Nitrogen 21 H Creatinine 1.15 Glucose Level 100 Calcium Level 8.5 Phosphorus Level 3.1 Magnesium Level 2.0 Medications Medications Current Medications Sodium Chloride (NS) 1,000 ml @ 40 mls/hr Q24H IV Last administered on 23:18; Admin Dose 40 MLS/HR; Start 02/21/17 at 23:00 Lorazepam (Ativan) 0.5 mg Q6H PRN IV AGITATION/ANXIETY Last administered on 04:47; Admin Dose 0.5 MG; Start 02/21/17 at 23:00 Metoprolol Tartrate (Lopressor) 25 mg BID NGT Last administered on 02/24/17 09:08; Admin Dose 25 MG; Start 02/22/17 at 09:00 Aspirin (Aspirin) 81 mg DAILY NGT Last administered on 02/24/17 09:07; Admin Dose 81 MG; Start 02/22/17 at 09:00 Atorvastatin Calcium 80 mg 80 mg HS NGT Last administered on 02/23/17 20:50; Admin Dose 80 MG; Start 02/22/17 at 21:00 Dextrose/Sodium Chloride 1,000 ml @ 50 mls/hr Q20H IV Last administered on 09:07; Admin Dose 50 MLS/HR; Start 02/24/17 at 09:00 Levofloxacin/ Dextrose (Levaquin 750 Mg/ D5W 150 ml (Pmx)) 150 ml @ 100 mls/hr Q48H IVPB ; Start 02/25/17 at 23:00 Famotidine 20 mg 20 mg DAILY NGT ; Start 02/25/17 at 09:00 Amiodarone HCl/ Dextrose (Cordarone Iv/ D5W) 500 ml @ 0 mls/hr Q0M IV Last administered on 02/24/17 17:21; Admin Dose 33.4 MLS/HR; Start 02/24/17 at 16: 30; Stop 02/25/17 at 16:29 Enoxaparin Sodium (Lovenox) 30 mg BID SC Last administered on 02/24/17 21:07 ; Admin Dose 30 MG; Start 02/24/17 at 21:00 Acetaminophen (Tylenol Tab) 650 mg Q6H PRN PO PAIN AND OR ELEVATED TEMP Last administered on 02/24/17 22:08; Admin Dose 650 MG; Start 02/24/17 at 22:00 DEMETRIS CONTRERAS MD Feb 25, 2017 11:05
[2017-02-25] MEDS: METOPROLOL 25 MG TAB NGT SCH ×2 (11:17→22:53)
[2017-02-25] MEDS: ASPIRIN 81 MG TAB NGT SCH (11:17)
[2017-02-25] MEDS: FAMOTIDINE 20 MG TAB NGT SCH (11:18)
[2017-02-25] MEDS: ENOXAPARIN 30 MG/0.3 ML SYG SC SCH ×2 (11:20→23:06)
--- NOTE | 2017-02-25 11:25 | CONS ---
Date/Time of Note Date/Time of Note DATE: 02/25/17 TIME: 11:24 Consult Date/Type/Reason Admit Date/Time Feb 21, 2017 at 21:53 Type of Consultation: Pulm/CCM Subjective GENERAL: Well nourished well-developed gentleman comfortable at rest no respiratory distress talking in full complete sentences VITAL SIGNS: per chart NECK: Supple. No JVD or lymphadenopathy. CARDIAC EXAM: S1, S2. No added sounds or murmurs. CHEST: clear bilaterally, No added sounds, rales or wheezes ABDOMEN: Soft, nontender. No guarding or rebound. EXTREMITIES: No cyanosis, clubbing or edema. NEUROLOGIC: Generalized weakness. No focal deficits. Objective Vital Signs Date Time Temp Pulse Resp B/P Pulse Ox O2 Delivery O2 Flow Rate FiO2 02/25/17 08:00 64 02/25/17 06:00 22 128/80 97 Room Air 02/25/17 05:00 2.0 02/25/17 04:00 98.6 02/24/17 13:35 30 Intake and Output 02/24/17 02/24/17 02/25/17 14:59 22:59 06:59 Intake Total 426 ml 483.6 ml 508.38 ml Output Total 1425 ml 1350 ml 320 ml Balance -999 ml -866.4 ml 188.38 ml Results/Medications Result Diagram: 02/25/17 0459 02/25/17 0459 Results 24 hrs Laboratory Tests Test 02/24/17 12:50 02/24/17 13:41 02/25/17 04:59 Blood Gas Specimen Source Blood arterial Arterial Blood Date Drawn 02/24/2017 1:20:29 PM Arterial Blood pH (Temp corrected) 7.460 H Arterial Blood pCO2 (Temp correct) 32.6 L Arterial Blood pO2 (Temp corrected) 96.8 H Arterial Blood HCO3 22.7 Arterial Blood Base Excess -0.5 Arterial Blood Oxygen Saturation 97.4 Presley Test ACCEPTAB Arterial Blood Gas Puncture Site Right Radial Arterial Blood Carboxyhemoglobin 0.3 Arterial Blood Methemoglobin 0.2 Blood Gas A-a O2 Differential 78.8 H Oxyhemoglobin Percent 96.9 Total Hemoglobin 12.6 Blood Gas Temperature 37.0 Blood Gas Actual Respiration Rate 17 Blood Gas Modality VENT - CPAP FiO2 30.0 Blood Gas Low PEEP Setting 5.0 Blood Gas Pressure Support 10 Blood Gas Notified Whom HUGO Blood Gas Notified Time 02/24/2017 1:33:02 PM Creatine Kinase 42 121 Creatine Kinase Index 2.3 3.8 Creatinine Kinase MB (Mass) 0.97 4.62 H Troponin I 0.175 *H 0.744 *H Vancomycin Level Trough 9.8 L White Blood Count 8.5 Red Blood Count 3.85 L Hemoglobin 12.1 L Hematocrit 36.5 L Mean Corpuscular Volume 94.8 Mean Corpuscular Hemoglobin 31.4 Mean Corpuscular Hemoglobin Concent 33.2 Red Cell Distribution Width 13.2 Platelet Count 144 Mean Platelet Volume 11.4 H Neutrophils % 69.2 Lymphocytes % 14.1 L Monocytes % 14.5 H Eosinophils % 1.3 Basophils % 0.5 Nucleated Red Blood Cells % 0.0 Neutrophils # 5.9 Lymphocytes # 1.2 Monocytes # 1.2 H Eosinophils # 0.1 Basophils # 0.0 Nucleated Red Blood Cells # 0.0 Sodium Level 146 H Potassium Level 3.2 L Chloride Level 109 Carbon Dioxide Level 28 Anion Gap 12 Blood Urea Nitrogen 21 H Creatinine 1.15 Glucose Level 100 Calcium Level 8.5 Phosphorus Level 3.1 Magnesium Level 2.0 Medications Current Medications Sodium Chloride (NS) 1,000 ml @ 40 mls/hr Q24H IV Last administered on 23:18; Admin Dose 40 MLS/HR; Start 02/21/17 at 23:00 Lorazepam (Ativan) 0.5 mg Q6H PRN IV AGITATION/ANXIETY Last administered on 04:47; Admin Dose 0.5 MG; Start 02/21/17 at 23:00 Metoprolol Tartrate (Lopressor) 25 mg BID NGT Last administered on 02/25/17 11:17; Admin Dose 25 MG; Start 02/22/17 at 09:00 Aspirin (Aspirin) 81 mg DAILY NGT Last administered on 02/25/17 11:17; Admin Dose 81 MG; Start 02/22/17 at 09:00 Atorvastatin Calcium 80 mg 80 mg HS NGT Last administered on 02/23/17 20:50; Admin Dose 80 MG; Start 02/22/17 at 21:00 Dextrose/Sodium Chloride 1,000 ml @ 50 mls/hr Q20H IV Last administered on 09:07; Admin Dose 50 MLS/HR; Start 02/24/17 at 09:00 Levofloxacin/ Dextrose (Levaquin 750 Mg/ D5W 150 ml (Pmx)) 150 ml @ 100 mls/hr Q48H IVPB ; Start 02/25/17 at 23:00 Famotidine 20 mg 20 mg DAILY NGT Last administered on 02/25/17 11:18; Admin Dose 20 MG; Start 02/25/17 at 09:00 Amiodarone HCl/ Dextrose (Cordarone Iv/ D5W) 500 ml @ 0 mls/hr Q0M IV Last administered on 02/24/17 17:21; Admin Dose 33.4 MLS/HR; Start 02/24/17 at 16: 30; Stop 02/25/17 at 16:29 Enoxaparin Sodium (Lovenox) 30 mg BID SC Last administered on 02/25/17 11:20 ; Admin Dose 30 MG; Start 02/24/17 at 21:00 Acetaminophen (Tylenol Tab) 650 mg Q6H PRN PO PAIN AND OR ELEVATED TEMP Last administered on 02/24/17 22:08; Admin Dose 650 MG; Start 02/24/17 at 22:00 Assessment/Plan Chief Complaint/Hosp Course IMP: 1. Acute on chronic hypoxemic and hypercapnic resp failure--due to ADHF in the setting of severe stable post extubation. 2. Type II NSTEMI/Demand Ischemia 3. UTI 4. HTN heart Disease RECS: 1. De-escalate OTC antibiotics 2. Decrease O2 as tolerated 3. Diuresis as tolerated. 4. Cardiac recs. 5. Replete lytes as needed 6. DVT and GI prophylaxis 7. Advance diet transfer to telemetry DC planning Critical care time 40 minutes Critical care time 40 minutes. Problems: ILIA SINGLETARY MD, [facility] Feb 25, 2017 11:25
--- NOTE | 2017-02-25 11:57 | PN ---
Date/Time of Note Date/Time of Note DATE: 02/25/17 TIME: 11:57 Assessment/Plan VTE Prophylaxis VTE Prophylaxis Intervention: LMWH Lines/Catheters IV [facility]ter Type (from [facility]): Peripheral IV Urinary Cath still in place: Yes Reason Cath still needed: other (indicate) (Discontinue) Assessment/Plan Assessment/Plan 81-year-old male with: 1. Coag negative staph Staphylococcus sepsis with confirm bacteremia and UTI. Patient had a febrile episode overnight, blood cultures and urine cultures have been repeated. No leukocytosis this morning. Continue Levaquin. Repeat blood cultures negative, blood cultures were repeated again last night. 2. Status post acute respiratory failure, hypoxemic, secondary to volume overload and flash pulmonary edema also possibly with CAP versus Aspiration pneumonia. Patient has been diuresed well, patient on low-dose Lasix from twice daily dosing, lung sounds sound much better and on RA. Currently on room air and has been extubated yesterday. Continue current antibiotics, Levaquin based on current sensitivities. Patient can transfer to telemetry bed. 3. 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 Renal function stable so far. 4. Elevated troponin, in setting of acute respiratory failure and known critical aortic stenosis. Appreciate recommendations from cardiology, medical management. 5. Episode of atrial fibrillation with rapid ventricular rate yesterday, now back to sinus rhythm status post amiodarone drip which had to be discontinued overnight due to episode of bradycardia, cardiology following. Replete electrolytes today. Patient currently on Lovenox. Prophylaxis:Pepcid for GI prophylaxis, SCDs for DVT prophylaxis Disposition: Patient currently on room air, he has been diuresed, he is off amiodarone drip, on Lovenox. Transfer to telemetry. Subjective 24 Hr Interval Summary Free Text/Dictation Patient is awake, alert, he is oriented 4 but hallucinating a little bit, he keeps asking for specific person was not in the room or around. He is currently restrained right upper extremity, he does have chronic left hemiparesis. He is on room air and saturating well. He had episode of atrial fibrillation with rapid ventricular rate yesterday, resolved after amnio drip, he is currently stable and back to sinus rhythm. Exam/Review of Systems Vital Signs Vitals Vital Signs Date Time Temp Pulse Resp B/P Pulse Ox O2 Delivery O2 Flow Rate FiO2 02/25/17 08:00 64 02/25/17 06:00 22 128/80 97 Room Air 02/25/17 05:00 2.0 02/25/17 04:00 98.6 02/24/17 13:35 30 Intake and Output 02/24/17 02/24/17 02/25/17 14:59 22:59 06:59 Intake Total 426 ml 483.6 ml 508.38 ml Output Total 1425 ml 1350 ml 320 ml Balance -999 ml -866.4 ml 188.38 ml Exam Constitutional: alert, oriented (x3), well developed Respiratory: clear to auscultation, normal air movement Cardiovascular: nl pulses, other (Back in sinus rhythm), regular rate and rhythm Gastrointestinal: non-tender, soft Musculoskeletal: nl extremities to inspection Extremities: normal pulses, other (No edema, clubbing or cyanosis) Neurological: [employer] II-XII intact, focal weakness ( left hemiparesis), nl mental status, nl speech ( he has no family) Results Result Diagram: 02/25/17 0459 02/25/17 0459 Results 24 hrs Laboratory Tests Test 02/24/17 12:50 02/24/17 13:41 02/25/17 04:59 Blood Gas Specimen Source Blood arterial Arterial Blood Date Drawn 02/24/2017 1:20:29 PM Arterial Blood pH (Temp corrected) 7.460 H Arterial Blood pCO2 (Temp correct) 32.6 L Arterial Blood pO2 (Temp corrected) 96.8 H Arterial Blood HCO3 22.7 Arterial Blood Base Excess -0.5 Arterial Blood Oxygen Saturation 97.4 Presley Test ACCEPTAB Arterial Blood Gas Puncture Site Right Radial Arterial Blood Carboxyhemoglobin 0.3 Arterial Blood Methemoglobin 0.2 Blood Gas A-a O2 Differential 78.8 H Oxyhemoglobin Percent 96.9 Total Hemoglobin 12.6 Blood Gas Temperature 37.0 Blood Gas Actual Respiration Rate 17 Blood Gas Modality VENT - CPAP FiO2 30.0 Blood Gas Low PEEP Setting 5.0 Blood Gas Pressure Support 10 Blood Gas Notified Whom JLD Blood Gas Notified Time 02/24/2017 1:33:02 PM Creatine Kinase 42 121 Creatine Kinase Index 2.3 3.8 Creatinine Kinase MB (Mass) 0.97 4.62 H Troponin I 0.175 *H 0.744 *H Vancomycin Level Trough 9.8 L White Blood Count 8.5 Red Blood Count 3.85 L Hemoglobin 12.1 L Hematocrit 36.5 L Mean Corpuscular Volume 94.8 Mean Corpuscular Hemoglobin 31.4 Mean Corpuscular Hemoglobin Concent 33.2 Red Cell Distribution Width 13.2 Platelet Count 144 Mean Platelet Volume 11.4 H Neutrophils % 69.2 Lymphocytes % 14.1 L Monocytes % 14.5 H Eosinophils % 1.3 Basophils % 0.5 Nucleated Red Blood Cells % 0.0 Neutrophils # 5.9 Lymphocytes # 1.2 Monocytes # 1.2 H Eosinophils # 0.1 Basophils # 0.0 Nucleated Red Blood Cells # 0.0 Sodium Level 146 H Potassium Level 3.2 L Chloride Level 109 Carbon Dioxide Level 28 Anion Gap 12 Blood Urea Nitrogen 21 H Creatinine 1.15 Glucose Level 100 Calcium Level 8.5 Phosphorus Level 3.1 Magnesium Level 2.0 Medications Medications Current Medications Sodium Chloride (NS) 1,000 ml @ 40 mls/hr Q24H IV Last administered on 23:18; Admin Dose 40 MLS/HR; Start 02/21/17 at 23:00 Lorazepam (Ativan) 0.5 mg Q6H PRN IV AGITATION/ANXIETY Last administered on 04:47; Admin Dose 0.5 MG; Start 02/21/17 at 23:00 Metoprolol Tartrate (Lopressor) 25 mg BID NGT Last administered on 02/25/17 11:17; Admin Dose 25 MG; Start 02/22/17 at 09:00 Aspirin (Aspirin) 81 mg DAILY NGT Last administered on 02/25/17 11:17; Admin Dose 81 MG; Start 02/22/17 at 09:00 Atorvastatin Calcium 80 mg 80 mg HS NGT Last administered on 02/23/17 20:50; Admin Dose 80 MG; Start 02/22/17 at 21:00 Dextrose/Sodium Chloride 1,000 ml @ 50 mls/hr Q20H IV Last administered on 09:07; Admin Dose 50 MLS/HR; Start 02/24/17 at 09:00 Levofloxacin/ Dextrose (Levaquin 750 Mg/ D5W 150 ml (Pmx)) 150 ml @ 100 mls/hr Q48H IVPB ; Start 02/25/17 at 23:00 Famotidine 20 mg 20 mg DAILY NGT Last administered on 02/25/17 11:18; Admin Dose 20 MG; Start 02/25/17 at 09:00 Amiodarone HCl/ Dextrose (Cordarone Iv/ D5W) 500 ml @ 0 mls/hr Q0M IV Last administered on 02/24/17 17:21; Admin Dose 33.4 MLS/HR; Start 02/24/17 at 16: 30; Stop 02/25/17 at 16:29 Enoxaparin Sodium (Lovenox) 30 mg BID SC Last administered on 02/25/17 11:20 ; Admin Dose 30 MG; Start 02/24/17 at 21:00 Acetaminophen (Tylenol Tab) 650 mg Q6H PRN PO PAIN AND OR ELEVATED TEMP Last administered on 02/24/17 22:08; Admin Dose 650 MG; Start 02/24/17 at 22:00 NADIYA PABLO Feb 25, 2017 11:57
[2017-02-25] MEDS ORDERED: POTASSIUM CHLORIDE 20 MEQ POWDER FOR ORAL SOLN PO ONE (13:00)
[2017-02-25] MEDS ORDERED: VANCOMYCIN 1.5 GM in SOD CHLORIDE 0.9% 250 ML IVPB SCH (15:00)
[2017-02-25] MEDS: ATORVASTATIN 80 MG TAB NGT SCH (22:47)
[2017-02-25] MEDS ORDERED: LEVOFLOXACIN 750MG/D5W (PMX) 150 ML IVPB SCH (23:00)
[2017-02-25] MEDS: SOD CHLORIDE 0.9% 1,000 ML IV SCH (23:00)
[2017-02-26] VITALS (10 sets, daily range): BP systolic 119–138; BP diastolic 72–85; PULSE 63–87; RESP 17–18
[2017-02-26] MEDS: DEXTROSE 5%-0.45% NACL 1,000 ML IV SCH ×2 (00:11→23:22)
[2017-02-26] MEDS: FUROSEMIDE 20 MG INJ IV SCH ×2 (05:55→18:22)
[2017-02-26 06:49] LABS: BASOPHILS % 0.4 % (0.0-2.0); EOSINOPHILS # 0.1 10^3/ul (0.0-0.5); EOSINOPHILS % 1.3 % (0.0-7.0); HEMATOCRIT 38.7 % (42.0-52.0); HEMOGLOBIN 13.2 g/dl (14.0-18.0); LYMPHOCYTES # 1.1 10^3/ul (0.8-2.9); LYMPHOCYTES % 10.7 % (15.0-51.0); MEAN CORPUSCULAR HEMOGLOBIN 31.5 pg (29.0-33.0); MEAN CORPUSCULAR HGB CONC 34.1 g/dl (32.0-37.0); MEAN CORPUSCULAR VOLUME 92.4 fl (82.0-101.0); MEAN PLATELET VOLUME 11.5 fl (7.4-10.4); MONOCYTE # 1.1 10^3/ul (0.3-0.9); MONOCYTES % 10.4 % (0.0-11.0); NEUTROPHIL # 8.1 10^3/ul (1.6-7.5); NEUTROPHILS % 76.6 % (39.0-77.0); PLATELET COUNT 165 10^3/UL (140-415); RED BLOOD COUNT 4.19 10^6/ul (4.70-6.10); RED CELL DISTRIBUTION WIDTH 12.8 % (11.5-14.5); WHITE BLOOD COUNT 10.5 10^3/ul (4.8-10.8)
[2017-02-26 08:03] LABS: MAGNESIUM 1.8 mg/dl (1.7-2.5); PHOSPHORUS 2.8 mg/dl (2.5-4.9)
[2017-02-26 08:11] LABS: POTASSIUM 3.7 mmol/L (3.5-5.1)
[2017-02-26 08:12] LABS: CALCIUM 8.6 mg/dl (8.4-10.2); CREATININE 1.12 mg/dl (0.61-1.24)
[2017-02-26] MEDS: FAMOTIDINE 20 MG TAB NGT SCH (09:49)
[2017-02-26] MEDS: ASPIRIN 81 MG TAB NGT SCH (09:49)
[2017-02-26] MEDS: METOPROLOL 25 MG TAB NGT SCH ×2 (09:49→22:17)
--- NOTE | 2017-02-26 09:57 | CONS ---
Date/Time of Note Date/Time of Note DATE: 02/26/17 TIME: 09:55 Assessment/Plan Assessment/Plan Additional Assessment/Plan 1. Congestive heart failure exacerbation- acute on chronic, better fluid status now - much better now 2. Systolic, acute on chronic echocardiogram 01/2017 - improve - better fluid status now. Good fluidsatus. 3. Positive troponin, minimal in the setting of known critical aortic stenosis , respiratory failure, mild renal insufficiency - no intervention planned. 4. Abnormal electrocardiogram with lateral T-wave inversions in the setting of left ventricular hypertrophy. 5. Respiratory failure - intubated, con't resp Rx. 6. Staph bacteremia- on anti-Bx - much improved. 7. Dyslipidemia. 8. Anemia. 9. AoS - severe 0.4 cm2 - will monitor clinically - avoid low BP as possible 10. Tachg, SVT - much better now - on Med Rx. Consultation Date/Type/Reason Admit Date/Time Feb 21, 2017 at 21:53 Type of Consultation: Pulm/CCM 24 HR Interval Summary Free Text/Dictation Much better now - in sinus - somewhat confused - on good therapy now ROS: No fever, no chills, no nausea, no vomiting, no diarrhea/constipation No recent weight changes No chest pain, no PND, no orthopnea No dizziness, blurred vision No thirst, no heat or cold intolerance Exam/Review of Systems Vital Signs Vitals Vital Signs Date Time Temp Pulse Resp B/P Pulse Ox O2 Delivery O2 Flow Rate FiO2 02/26/17 08:11 81 02/26/17 08:05 99.2 17 138/85 96 02/25/17 20:00 Nasal Cannula 2.0 02/24/17 13:35 30 Intake and Output 02/25/17 02/25/17 02/26/17 14:59 22:59 06:59 Intake Total 600 ml 50 ml Output Total 1275 ml Balance -675 ml 50 ml Exam General: WN/WD/NAD, AOx 3 HEENT: Unicetric/atraumatic/EOMI (follow commands) NECK: JVD elevated, no thyromegaly Lymph: no lymphadenopathy HEART: regular with no S3, II/ systolic murmur at apex, 2/6 at base with delayed upstroke LUNGS: Coarse sounds ABD: soft, NT, ND, +BS : Intact Neuro: non focal SKIN: chronic changes EXT: trace edema Results Result Diagram: 02/26/17 0611 02/26/17 0611 Results 24 hrs Laboratory Tests Test 02/26/17 06:11 White Blood Count 10.5 # Red Blood Count 4.19 L Hemoglobin 13.2 L Hematocrit 38.7 L Mean Corpuscular Volume 92.4 Mean Corpuscular Hemoglobin 31.5 Mean Corpuscular Hemoglobin Concent 34.1 Red Cell Distribution Width 12.8 Platelet Count 165 Mean Platelet Volume 11.5 H Neutrophils % 76.6 Lymphocytes % 10.7 L Monocytes % 10.4 Eosinophils % 1.3 Basophils % 0.4 Nucleated Red Blood Cells % 0.0 Neutrophils # 8.1 H Lymphocytes # 1.1 Monocytes # 1.1 H Eosinophils # 0.1 Basophils # 0.0 Nucleated Red Blood Cells # 0.0 Sodium Level 145 H Potassium Level 3.7 Chloride Level 107 Carbon Dioxide Level 28 Anion Gap 14 Blood Urea Nitrogen 21 H Creatinine 1.12 Glucose Level 106 Calcium Level 8.6 Phosphorus Level 2.8 Magnesium Level 1.8 Medications Medications Current Medications Sodium Chloride (NS) 1,000 ml @ 40 mls/hr Q24H IV Last administered on 23:18; Admin Dose 40 MLS/HR; Start 02/21/17 at 23:00 Lorazepam (Ativan) 0.5 mg Q6H PRN IV AGITATION/ANXIETY Last administered on 04:47; Admin Dose 0.5 MG; Start 02/21/17 at 23:00 Metoprolol Tartrate (Lopressor) 25 mg BID NGT Last administered on 02/25/17 22:53; Admin Dose 25 MG; Start 02/22/17 at 09:00 Aspirin (Aspirin) 81 mg DAILY NGT Last administered on 02/25/17 11:17; Admin Dose 81 MG; Start 02/22/17 at 09:00 Atorvastatin Calcium 80 mg 80 mg HS NGT Last administered on 02/25/17 22:47; Admin Dose 80 MG; Start 02/22/17 at 21:00 Dextrose/Sodium Chloride 1,000 ml @ 50 mls/hr Q20H IV Last administered on 00:11; Admin Dose 50 MLS/HR; Start 02/24/17 at 09:00 Levofloxacin/ Dextrose (Levaquin 750 Mg/ D5W 150 ml (Pmx)) 150 ml @ 100 mls/hr Q48H IVPB Last administered on 02/26/17 00:12; Admin Dose 100 MLS/HR; Start 02/25/17 at 23:00 Famotidine (Pepcid) 20 mg DAILY NGT Last administered on 02/25/17 11:18; Admin Dose 20 MG; Start 02/25/17 at 09:00 Enoxaparin Sodium (Lovenox) 30 mg BID SC Last administered on 02/25/17 23:06 ; Admin Dose 30 MG; Start 02/24/17 at 21:00 Acetaminophen (Tylenol Tab) 650 mg Q6H PRN PO PAIN AND OR ELEVATED TEMP Last administered on 02/24/17 22:08; Admin Dose 650 MG; Start 02/24/17 at 22:00 DEMETRIS CONTRERAS MD Feb 26, 2017 09:57
[2017-02-26] MEDS: ENOXAPARIN 30 MG/0.3 ML SYG SC SCH ×2 (10:32→22:27)
--- NOTE | 2017-02-26 11:11 | PN ---
Date/Time of Note Date/Time of Note DATE: 02/26/17 TIME: 11:11 Assessment/Plan VTE Prophylaxis VTE Prophylaxis Intervention: LMWH Lines/Catheters IV [facility]from [facility] Saline Lock Urinary Cath still in place: No Assessment/Plan Assessment/Plan 81-year-old male with: 1. Coag negative staph Staphylococcus sepsis with confirm bacteremia and Staphylococcus aureus UTI. Patient remains afebrile over the past 36 hours. WBC remains normal. Repeat blood cultures are NGTD Continue Levaquin, we will switch to p.o. 2. Status post acute respiratory failure, hypoxemic, secondary to volume overload and flash pulmonary edema also possibly with CAP versus Aspiration pneumonia. Patient has been extubated for the past 2 days, he is mostly on room air to 2 L nasal cannula. No hypoxemia. Patient has been diuresed well, patient on low-dose Lasix BID. Follow-up chest x-ray in a.m. Continue Levaquin based on current sensitivities. 3. 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 Renal function stable so far. Replete potassium and magnesium as needed 4. Elevated troponin, in setting of acute respiratory failure and known critical aortic stenosis. Appreciate recommendations from cardiology, medical management. 5. Episode of atrial fibrillation with rapid ventricular rate yesterday, now back to sinus rhythm status post amiodarone drip x 2 days. Cardiology following. Replete electrolytes today. Patient currently on Lovenox. We will clarify with cardiology if patient actually needs anticoagulation, so far he had one episode of atrial fibrillation. Prophylaxis: Pepcid for GI prophylaxis, on Lovenox currently. Disposition: PT evaluation, replete electrolytes, case management to inquire re SNF placement within the next 24-48 hours if okay with cardiology. Subjective 24 Hr Interval Summary Free Text/Dictation Patient's mental status much improved, he is not disoriented anymore. He is not hallucinating. Ruiz catheter removed yesterday, restraints removed today. PT evaluation pending. Patient reports that he has family at home taking care of him, I was told he has a caregiver. Will find out from case management who is taking care of the patient. Patient could benefit from a [facility] facility discharge Exam/Review of Systems Vital Signs Vitals Vital Signs Date Time Temp Pulse Resp B/P Pulse Ox O2 Delivery O2 Flow Rate FiO2 02/26/17 08:11 81 02/26/17 08:05 99.2 17 138/85 96 02/25/17 20:00 Nasal Cannula 2.0 02/24/17 13:35 30 Intake and Output 02/25/17 02/25/17 02/26/17 15:00 23:00 07:00 Intake Total 650 ml Output Total 1275 ml Balance -625 ml Exam Constitutional: alert, oriented (x3) Respiratory: clear to auscultation, normal air movement Cardiovascular: nl pulses, regular rate and rhythm Gastrointestinal: non-tender, soft Musculoskeletal: nl extremities to inspection Extremities: normal pulses Neurological: [employer] II-XII intact, focal weakness (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), nl mental status, nl speech, other Results Result Diagram: 02/26/17 0611 02/26/17 0611 Results 24 hrs Laboratory Tests Test 02/26/17 06:11 White Blood Count 10.5 # Red Blood Count 4.19 L Hemoglobin 13.2 L Hematocrit 38.7 L Mean Corpuscular Volume 92.4 Mean Corpuscular Hemoglobin 31.5 Mean Corpuscular Hemoglobin Concent 34.1 Red Cell Distribution Width 12.8 Platelet Count 165 Mean Platelet Volume 11.5 H Neutrophils % 76.6 Lymphocytes % 10.7 L Monocytes % 10.4 Eosinophils % 1.3 Basophils % 0.4 Nucleated Red Blood Cells % 0.0 Neutrophils # 8.1 H Lymphocytes # 1.1 Monocytes # 1.1 H Eosinophils # 0.1 Basophils # 0.0 Nucleated Red Blood Cells # 0.0 Sodium Level 145 H Potassium Level 3.7 Chloride Level 107 Carbon Dioxide Level 28 Anion Gap 14 Blood Urea Nitrogen 21 H Creatinine 1.12 Glucose Level 106 Calcium Level 8.6 Phosphorus Level 2.8 Magnesium Level 1.8 Medications Medications Current Medications Sodium Chloride (NS) 1,000 ml @ 40 mls/hr Q24H IV Last administered on 23:18; Admin Dose 40 MLS/HR; Start 02/21/17 at 23:00 Lorazepam (Ativan) 0.5 mg Q6H PRN IV AGITATION/ANXIETY Last administered on 04:47; Admin Dose 0.5 MG; Start 02/21/17 at 23:00 Metoprolol Tartrate (Lopressor) 25 mg BID NGT Last administered on 02/26/17 09:49; Admin Dose 25 MG; Start 02/22/17 at 09:00 Aspirin (Aspirin) 81 mg DAILY NGT Last administered on 02/26/17 09:49; Admin Dose 81 MG; Start 02/22/17 at 09:00 Atorvastatin Calcium 80 mg 80 mg HS NGT Last administered on 02/25/17 22:47; Admin Dose 80 MG; Start 02/22/17 at 21:00 Dextrose/Sodium Chloride 1,000 ml @ 50 mls/hr Q20H IV Last administered on 00:11; Admin Dose 50 MLS/HR; Start 02/24/17 at 09:00 Levofloxacin/ Dextrose (Levaquin 750 Mg/ D5W 150 ml (Pmx)) 150 ml @ 100 mls/hr Q48H IVPB Last administered on 02/26/17 00:12; Admin Dose 100 MLS/HR; Start 02/25/17 at 23:00 Famotidine (Pepcid) 20 mg DAILY NGT Last administered on 02/26/17 09:49; Admin Dose 20 MG; Start 02/25/17 at 09:00 Enoxaparin Sodium (Lovenox) 30 mg BID SC Last administered on 02/26/17 10:32 ; Admin Dose 30 MG; Start 02/24/17 at 21:00 Acetaminophen (Tylenol Tab) 650 mg Q6H PRN PO PAIN AND OR ELEVATED TEMP Last administered on 02/24/17 22:08; Admin Dose 650 MG; Start 02/24/17 at 22:00 NADIYA PABLO Feb 26, 2017 11:11
[2017-02-26] MEDS ORDERED: MAGNESIUM SULFATE 2 GM/50 ML 50 ML IVPB ONE (11:30)
[2017-02-26] MEDS ORDERED: POTASSIUM CHLORIDE (SR) 10 MEQ TAB PO ONE (11:30)
--- NOTE | 2017-02-26 12:38 | CONS ---
Date/Time of Note Date/Time of Note DATE: 02/26/17 TIME: 12:37 Consult Date/Type/Reason Admit Date/Time Feb 21, 2017 at 21:53 Type of Consultation: Pulm/CCM Subjective remains comfortable. Objective Vital Signs Date Time Temp Pulse Resp B/P Pulse Ox O2 Delivery O2 Flow Rate FiO2 02/26/17 11:31 98.6 70 17 129/82 95 02/25/17 20:00 Nasal Cannula 2.0 02/24/17 13:35 30 Intake and Output 02/25/17 02/25/17 02/26/17 15:00 23:00 07:00 Intake Total 650 ml Output Total 1275 ml Balance -625 ml Exam GENERAL: Well nourished well-developed gentleman comfortable at rest no respiratory distress talking in full complete sentences VITAL SIGNS: per chart NECK: Supple. No JVD or lymphadenopathy. CARDIAC EXAM: S1, S2. No added sounds or murmurs. CHEST: clear bilaterally, No added sounds, rales or wheezes ABDOMEN: Soft, nontender. No guarding or rebound. EXTREMITIES: No cyanosis, clubbing or edema. NEUROLOGIC: Generalized weakness. No focal deficits. Results/Medications Result Diagram: 02/26/17 0611 02/26/17 0611 Results 24 hrs Laboratory Tests Test 02/26/17 06:11 White Blood Count 10.5 # Red Blood Count 4.19 L Hemoglobin 13.2 L Hematocrit 38.7 L Mean Corpuscular Volume 92.4 Mean Corpuscular Hemoglobin 31.5 Mean Corpuscular Hemoglobin Concent 34.1 Red Cell Distribution Width 12.8 Platelet Count 165 Mean Platelet Volume 11.5 H Neutrophils % 76.6 Lymphocytes % 10.7 L Monocytes % 10.4 Eosinophils % 1.3 Basophils % 0.4 Nucleated Red Blood Cells % 0.0 Neutrophils # 8.1 H Lymphocytes # 1.1 Monocytes # 1.1 H Eosinophils # 0.1 Basophils # 0.0 Nucleated Red Blood Cells # 0.0 Sodium Level 145 H Potassium Level 3.7 Chloride Level 107 Carbon Dioxide Level 28 Anion Gap 14 Blood Urea Nitrogen 21 H Creatinine 1.12 Glucose Level 106 Calcium Level 8.6 Phosphorus Level 2.8 Magnesium Level 1.8 Medications Current Medications Sodium Chloride (NS) 1,000 ml @ 40 mls/hr Q24H IV Last administered on t 23:18; Admin Dose 40 MLS/HR; Start 02/21/17 at 23:00 Lorazepam (Ativan) 0.5 mg Q6H PRN IV AGITATION/ANXIETY Last administered on 04:47; Admin Dose 0.5 MG; Start 02/21/17 at 23:00 Metoprolol Tartrate (Lopressor) 25 mg BID NGT Last administered on 02/26/17 09:49; Admin Dose 25 MG; Start 02/22/17 at 09:00 Aspirin (Aspirin) 81 mg DAILY NGT Last administered on 02/26/17 09:49; Admin Dose 81 MG; Start 02/22/17 at 09:00 Atorvastatin Calcium 80 mg 80 mg HS NGT Last administered on 02/25/17 22:47; Admin Dose 80 MG; Start 02/22/17 at 21:00 Dextrose/Sodium Chloride (D5-1/2ns) 1,000 ml @ 50 mls/hr Q20H IV Last administered on 02/26/17 00:11; Admin Dose 50 MLS/HR; Start 02/24/17 at 09:00 Famotidine (Pepcid) 20 mg DAILY NGT Last administered on 02/26/17 09:49; Admin Dose 20 MG; Start 02/25/17 at 09:00 Enoxaparin Sodium (Lovenox) 30 mg BID SC Last administered on 02/26/17 10:32 ; Admin Dose 30 MG; Start 02/24/17 at 21:00 Acetaminophen (Tylenol Tab) 650 mg Q6H PRN PO PAIN AND OR ELEVATED TEMP Last administered on 02/24/17 22:08; Admin Dose 650 MG; Start 02/24/17 at 22:00 Levofloxacin 750 mg 750 mg Q48H PO ; Start 02/27/17 at 22:00 Magnesium Sulfate (Magnesium Sulfate 2 Gm/50 ml) 50 ml @ 25 mls/hr ONCE ONCE IVPB ; Start 02/26/17 at 11:30; Stop 02/26/17 at 13:29 Assessment/Plan Chief Complaint/Hosp Course IMP: 1. Acute on chronic hypoxemic and hypercapnic resp failure--due to ADHF in the setting of severe stable post extubation. 2. Type II NSTEMI/Demand Ischemia 3. UTI 4. HTN heart Disease RECS: 1. De-escalate antibiotics 2. Decrease O2 as tolerated 3. Diuresis as tolerated. 4. Cardiac recs. 5. Replete lytes as needed 6. DVT and GI prophylaxis dc planning ? SNF? DC planning Critical care time 40 minutes Critical care time 40 minutes. Problems: ILIA SINGLETARY MD, [facility] Feb 26, 2017 12:38
--- NOTE | 2017-02-26 16:55 | RADRPT ---
PROCEDURE: XR Chest. CLINICAL INDICATION: Pulmonary edema. TECHNIQUE: Single frontal view of the chest was obtained COMPARISON: Chest radiograph dated February 23, 2017. FINDINGS: Interval removal of feeding tube and endotracheal tube. There is stable borderline cardiomegaly. Aortic calcifications are present. There is mild pulmonary vascular congestion. No focal consolidations, pleural effusions, or pneumoth orax is seen. Degenerative changes of the spine are present. IMPRESSION: 1. Mild pulmonary vascular congestion, not significantly changed in appearance compared to prior st [facility]. No focal consolidations. RPTAT:AAJJ Physician Woo Date Time Electronically viewed and signed by Physician Woo on 02/26/2017 13:56 QL/
[2017-02-26] MEDS: ATORVASTATIN 80 MG TAB NGT SCH (22:16)
[2017-02-26] MEDS: SOD CHLORIDE 0.9% 1,000 ML IV SCH (23:00)
[2017-02-27] VITALS (10 sets, daily range): BP systolic 107–149; BP diastolic 66–82; PULSE 63–71; RESP 16–20
[2017-02-27] MEDS: FUROSEMIDE 20 MG INJ IV SCH (05:34)
[2017-02-27 07:52] LABS: BASOPHILS % 0.3 % (0.0-2.0); EOSINOPHILS # 0.3 10^3/ul (0.0-0.5); EOSINOPHILS % 2.9 % (0.0-7.0); HEMATOCRIT 38.6 % (42.0-52.0); HEMOGLOBIN 13.4 g/dl (14.0-18.0); LYMPHOCYTES # 1.2 10^3/ul (0.8-2.9); LYMPHOCYTES % 12.9 % (15.0-51.0); MEAN CORPUSCULAR HEMOGLOBIN 31.6 pg (29.0-33.0); MEAN CORPUSCULAR HGB CONC 34.7 g/dl (32.0-37.0); MEAN PLATELET VOLUME 11.3 fl (7.4-10.4); MONOCYTE # 0.9 10^3/ul (0.3-0.9); MONOCYTES % 9.6 % (0.0-11.0); NEUTROPHIL # 6.6 10^3/ul (1.6-7.5); NEUTROPHILS % 73.9 % (39.0-77.0); PLATELET COUNT 168 10^3/UL (140-415); RED BLOOD COUNT 4.24 10^6/ul (4.70-6.10); RED CELL DISTRIBUTION WIDTH 12.9 % (11.5-14.5)
[2017-02-27 08:14] LABS: CALCIUM 8.8 mg/dl (8.4-10.2); CREATININE 0.99 mg/dl (0.61-1.24); POTASSIUM 3.6 mmol/L (3.5-5.1)
[2017-02-27 08:18] LABS: MAGNESIUM 2.2 mg/dl (1.7-2.5); PHOSPHORUS 3.4 mg/dl (2.5-4.9)
[2017-02-27] MEDS: FAMOTIDINE 20 MG TAB NGT SCH (09:08)
[2017-02-27] MEDS: ASPIRIN 81 MG TAB NGT SCH (09:08)
[2017-02-27] MEDS: METOPROLOL 25 MG TAB NGT SCH (09:09)
[2017-02-27] MEDS: ENOXAPARIN 30 MG/0.3 ML SYG SC SCH (09:13)
--- NOTE | 2017-02-27 11:54 | PN ---
Date/Time of Note Date/Time of Note DATE: 02/27/17 TIME: 11:48 Assessment/Plan VTE Prophylaxis VTE Prophylaxis Intervention: LMWH Lines/Catheters IV [facility]ter Type (from [facility] Saline Lock Urinary Cath still in place: No Assessment/Plan Assessment/Plan 81-year-old male with: 1. Coag negative staph Staphylococcus sepsis with confirm bacteremia and Staphylococcus aureus UTI. Patient remains afebrile over the past 4 days and WBC remains normal. Repeat blood cultures are negative so far Continue p.o. Levaquin for total of 14 days treatment. 2. Status post acute respiratory failure, hypoxemic, secondary to volume overload and flash pulmonary edema also possibly with CAP versus Aspiration pneumonia. Patient has been extubated for the past 2 days, he is on room air to 2 L nasal cannula. No hypoxemia. Patient has been diuresed well, will change his Lasix to p.o. chest x-ray yesterday afternoon showing mild pulmonary edema which is much improved. Continue Levaquin based on current sensitivities. 3. 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 Renal function stable so far. Replete potassium and magnesium as needed 4. Elevated troponin, in setting of acute respiratory failure and known critical aortic stenosis. Appreciate recommendations from cardiology, medical management. 5. Episode of atrial fibrillation with rapid ventricular rate yesterday, now back to sinus rhythm status post amiodarone drip x 2 days. Cardiology following. We will clarify regimen today. For now tolerating beta blockers well. Replete electrolytes today. Patient currently on Lovenox. We will clarify with cardiology if patient actually needs anticoagulation, so far he had one episode of atrial fibrillation. 6. Likely early dementia, patient with episodes of forgetfulness at home according to partner. He had a brief episode of delirium here post extubation which is completely resolved for the past 2 days. Prophylaxis: Pepcid for GI prophylaxis, on Lovenox currently. Disposition: SNF placement today if okay with cardiology. Patient will need follow-up with outpatient interventional cardiology for discussion regarding TAVR. She will also need likely further placement to a boarding care from residential facility since apparently according to the patient's partner has been more difficult to handle due to episodes of forgetfullness Subjective 24 Hr Interval Summary Free Text/Dictation Patient is very pleasant, his mental status is much improved, however he is forgetful confused regarding some element of his history. According to his living partner, Ngozi, patient with some probable early dementia at this time. He has forgetfulness and cannot take care of himself fully. He will be transferred to a residential facility if cardiology agreeable Exam/Review of Systems Vital Signs Vitals Vital Signs Date Time Temp Pulse Resp B/P Pulse Ox O2 Delivery O2 Flow Rate FiO2 02/27/17 11:12 98.7 75 20 137/75 91 02/27/17 08:30 Nasal Cannula 2.0 02/26/17 13:41 21 Intake and Output 02/26/17 02/26/17 02/27/17 15:00 23:00 07:00 Intake Total 300 ml 1900 ml 360 ml Balance 300 ml 1900 ml 360 ml Exam Constitutional: alert, oriented, well developed Respiratory: clear to auscultation, normal air movement Cardiovascular: nl pulses, regular rate and rhythm Gastrointestinal: non-tender, soft Musculoskeletal: nl extremities to inspection Extremities: normal pulses, other Neurological: SCHOOL AIDE II-XII intact (No edema, clubbing or cyanosis), nl mental status (At baseline currently), nl speech, other (Generalized weakness improving ) Results Result Diagram: 02/27/17 0644 02/27/17 0644 Results 24 hrs Laboratory Tests Test 02/27/17 06:44 White Blood Count 9.0 Red Blood Count 4.24 L Hemoglobin 13.4 L Hematocrit 38.6 L Mean Corpuscular Volume 91.0 Mean Corpuscular Hemoglobin 31.6 Mean Corpuscular Hemoglobin Concent 34.7 Red Cell Distribution Width 12.9 Platelet Count 168 Mean Platelet Volume 11.3 H Neutrophils % 73.9 Lymphocytes % 12.9 L Monocytes % 9.6 Eosinophils % 2.9 Basophils % 0.3 Nucleated Red Blood Cells % 0.0 Neutrophils # 6.6 Lymphocytes # 1.2 Monocytes # 0.9 Eosinophils # 0.3 Basophils # 0.0 Nucleated Red Blood Cells # 0.0 Sodium Level 143 Potassium Level 3.6 Chloride Level 103 Carbon Dioxide Level 32 H Anion Gap 12 Blood Urea Nitrogen 25 H Creatinine 0.99 Glucose Level 115 Calcium Level 8.8 Phosphorus Level 3.4 Magnesium Level 2.2 Imaging Free Text/Dictation PROCEDURE: XR Chest. CLINICAL INDICATION: Pulmonary edema. TECHNIQUE: Single frontal view of the chest was obtained COMPARISON: Chest radiograph dated February 23, 2017. FINDINGS: Interval removal of feeding tube and endotracheal tube. There is stable borderline cardiomegaly. Aortic calcifications are present. There is mild pulmonary vascular congestion. No focal consolidations, pleural effusions, or pneumothorax is seen. Degenerative changes of the spine are present. IMPRESSION: 1. Mild pulmonary vascular congestion, not significantly changed in appearance compared to prior study. No focal consolidations. RPTAT:AAJJ Terrence Santana Physician Date Time Electronically viewed and signed by Terrence Santana Physician on 02/26/2017 13:56 Medications Medications Current Medications Sodium Chloride (NS) 1,000 ml @ 40 mls/hr Q24H IV Last administered on 23:18; Admin Dose 40 MLS/HR; Start 02/21/17 at 23:00 Lorazepam (Ativan) 0.5 mg Q6H PRN IV AGITATION/ANXIETY Last administered on 04:47; Admin Dose 0.5 MG; Start 02/21/17 at 23:00 Metoprolol Tartrate (Lopressor) 25 mg BID NGT Last administered on 02/27/17 09:09; Admin Dose 25 MG; Start 02/22/17 at 09:00 Aspirin (Aspirin) 81 mg DAILY NGT Last administered on 02/27/17 09:08; Admin Dose 81 MG; Start 02/22/17 at 09:00 Atorvastatin Calcium 80 mg 80 mg HS NGT Last administered on 02/26/17 22:16; Admin Dose 80 MG; Start 02/22/17 at 21:00 Dextrose/Sodium Chloride (D5-1/2ns) 1,000 ml @ 50 mls/hr Q20H IV Last administered on 02/26/17 23:22; Admin Dose 50 MLS/HR; Start 02/24/17 at 09:00 Famotidine (Pepcid) 20 mg DAILY NGT Last administered on 02/27/17 09:08; Admin Dose 20 MG; Start 02/25/17 at 09:00 Enoxaparin Sodium (Lovenox) 30 mg BID SC Last administered on 02/27/17 09:13 ; Admin Dose 30 MG; Start 02/24/17 at 21:00 Acetaminophen (Tylenol Tab) 650 mg Q6H PRN PO PAIN AND OR ELEVATED TEMP Last administered on 02/24/17 22:08; Admin Dose 650 MG; Start 02/24/17 at 22:00 Levofloxacin (Levaquin) 750 mg Q48H PO ; Start 02/27/17 at 22:00 NADIYA PABLO Feb 27, 2017 11:54
--- NOTE | 2017-02-27 11:55 | PDOCDIS ---
Discharge Instructions CONDITION Patient Condition: Stable HOME CARE INSTRUCTIONS: Diet Instructions: Low Fat /CholesterolSpecial Diet: Cardiac diet ACTIVITY: Activity Restrictions: Slowly Increase Activity FOLLOW UP/APPOINTMENTS Follow-up Plan Follow-up with interventional cardiology as an outpatient regarding TAVR Follow-[facility], likely to need boarding care. Follow-up with cardiology within 1-2 weeks as an outpatient regarding congestive heart failure and also likely to need outpatient angiogram prior to TAVR NADIYA PABLO Feb 27, 2017 11:55
[2017-02-27] MEDS ORDERED: POTASSIUM CHLORIDE (SR) 20 MEQ TAB PO STA (11:56)
--- NOTE | 2017-02-27 15:55 | CONS ---
Date/Time of Note Date/Time of Note DATE: 02/27/17 TIME: 15:54 Consult Date/Type/Reason Admit Date/Time Feb 21, 2017 at 21:53 Type of Consultation: Pulm/CCM Subjective Patient remains comfortable this morning. Denies shortness of breath. Objective Vital Signs Date Time Temp Pulse Resp B/P Pulse Ox O2 Delivery O2 Flow Rate FiO2 02/27/17 15:27 98.4 67 18 107/66 98 02/27/17 08:30 Nasal Cannula 2.0 02/26/17 13:41 21 Intake and Output 02/26/17 02/26/17 02/27/17 15:00 23:00 07:00 Intake Total 300 ml 1900 ml 360 ml Balance 300 ml 1900 ml 360 ml Exam GENERAL: Well nourished well-developed gentleman comfortable at rest no respiratory distress talking in full complete sentences VITAL SIGNS: per chart NECK: Supple. No JVD or lymphadenopathy. CARDIAC EXAM: S1, S2. No added sounds or murmurs. CHEST: clear bilaterally, No added sounds, rales or wheezes ABDOMEN: Soft, nontender. No guarding or rebound. EXTREMITIES: No cyanosis, clubbing or edema. NEUROLOGIC: Generalized weakness. No focal deficits. Results/Medications Result Diagram: 02/27/17 0644 02/27/17 0644 Results 24 hrs Laboratory Tests Test 02/27/17 06:44 White Blood Count 9.0 Red Blood Count 4.24 L Hemoglobin 13.4 L Hematocrit 38.6 L Mean Corpuscular Volume 91.0 Mean Corpuscular Hemoglobin 31.6 Mean Corpuscular Hemoglobin Concent 34.7 Red Cell Distribution Width 12.9 Platelet Count 168 Mean Platelet Volume 11.3 H Neutrophils % 73.9 Lymphocytes % 12.9 L Monocytes % 9.6 Eosinophils % 2.9 Basophils % 0.3 Nucleated Red Blood Cells % 0.0 Neutrophils # 6.6 Lymphocytes # 1.2 Monocytes # 0.9 Eosinophils # 0.3 Basophils # 0.0 Nucleated Red Blood Cells # 0.0 Sodium Level 143 Potassium Level 3.6 Chloride Level 103 Carbon Dioxide Level 32 H Anion Gap 12 Blood Urea Nitrogen 25 H Creatinine 0.99 Glucose Level 115 Calcium Level 8.8 Phosphorus Level 3.4 Magnesium Level 2.2 Medications Current Medications Lorazepam (Ativan) 0.5 mg Q6H PRN IV AGITATION/ANXIETY Last administered on 04:47; Admin Dose 0.5 MG; Start 02/21/17 at 23:00 Metoprolol Tartrate (Lopressor) 25 mg BID NGT Last administered on 02/27/17 09:09; Admin Dose 25 MG; Start 02/22/17 at 09:00 Aspirin (Aspirin) 81 mg DAILY NGT Last administered on 02/27/17 09:08; Admin Dose 81 MG; Start 02/22/17 at 09:00 Atorvastatin Calcium (Lipitor) 80 mg HS NGT Last administered on 02/26/17 22: 16; Admin Dose 80 MG; Start 02/22/17 at 21:00 Famotidine (Pepcid) 20 mg DAILY NGT Last administered on 02/27/17 09:08; Admin Dose 20 MG; Start 02/25/17 at 09:00 Enoxaparin Sodium (Lovenox) 30 mg BID SC Last administered on 02/27/17 09:13 ; Admin Dose 30 MG; Start 02/24/17 at 21:00 Acetaminophen (Tylenol Tab) 650 mg Q6H PRN PO PAIN AND OR ELEVATED TEMP Last administered on 02/24/17 22:08; Admin Dose 650 MG; Start 02/24/17 at 22:00 Levofloxacin (Levaquin) 750 mg Q48H PO ; Start 02/27/17 at 22:00 Assessment/Plan Chief Complaint/Hosp Course IMP: 1. Acute on chronic hypoxemic and hypercapnic resp failure--due to ADHF in the setting of severe stable post extubation. 2. Type II NSTEMI/Demand Ischemia 3. UTI 4. HTN heart Disease RECS: 1. De-escalate antibiotics 2. Decrease O2 as tolerated 3. Diuresis as tolerated. 4. Cardiac recs. 5. Replete lytes as needed 6. DVT and GI prophylaxis dc planning ? SNF? DC planning Critical care time 40 minutes Critical care time 40 minutes. Problems: ILIA SINGLETARY MD, [facility] Feb 27, 2017 15:55
--- NOTE | 2017-02-27 16:02 | CONS ---
Date/Time of Note Date/Time of Note DATE: 02/27/17 TIME: 15:58 Assessment/Plan Assessment/Plan Chief Complaint/Hosp Course IMPRESSION: 1. Congestive heart failure exacerbation Systolic, acute on chronic echocardiogram 01/2017. 3. Positive troponin, minimal in the setting of known critical aortic stenosis , respiratory failure, mild renal insufficiency.- no chest pain or significant uptrend 4. Abnormal electrocardiogram with lateral T-wave inversions in the setting of left ventricular hypertrophy. 5. Respiratory failure. 6. Staph bacteremia. 7. Dyslipidemia. 8. Anemia. Recc: -Tele -Continue BB -Continue asa/statin -Continue lasix -D/C planning if remains stable with no sig sob/CP with outpatient f/u and cath prior to referral for TAVR Problems: Consultation Date/Type/Reason Admit Date/Time Feb 21, 2017 at 21:53 Initial Consult Date 02/22/2017 Type of Consultation: cardiology Reason for Consultation Positive troponin/CHF/ Referring Provider: NADIYA PABLO Exam/Review of Systems Vital Signs Vitals Vital Signs Date Time Temp Pulse Resp B/P Pulse Ox O2 Delivery O2 Flow Rate FiO2 02/27/17 15:27 98.4 67 18 107/66 98 02/27/17 08:30 Nasal Cannula 2.0 02/26/17 13:41 21 Intake and Output 02/26/17 02/26/17 02/27/17 15:00 23:00 07:00 Intake Total 300 ml 1900 ml 360 ml Balance 300 ml 1900 ml 360 ml Exam Review of Systems: CONSTITUTIONAL: No fevers, chills. PULMONARY: No sob CARDIOVASCULAR: No chest pain/palpitations GASTROINTESTINAL: No nausea/vomiting. GENITOURINARY: No hematuria/dysuria. MUSCULOSKELETAL: No myagias/arthalgias. PSYCHIATRIC: The patient denies depression. NEUROLOGIC: No weakness Constitutional: alert Psych: no complaints Head: normocephalic ENMT: mucosa pink and moist Neck: jvd (9 cm water), supple Respiratory: clear to auscultation Cardiovascular: regular rate and rhythm Gastrointestinal: soft Musculoskeletal: muscle weakness (mild generalized) Extremities: edema (trace/B) Neurological: other (No focal deficits) Results Result Diagram: 02/27/17 0644 02/27/17 0644 Results 24 hrs Laboratory Tests Test 02/27/17 06:44 White Blood Count 9.0 Red Blood Count 4.24 L Hemoglobin 13.4 L Hematocrit 38.6 L Mean Corpuscular Volume 91.0 Mean Corpuscular Hemoglobin 31.6 Mean Corpuscular Hemoglobin Concent 34.7 Red Cell Distribution Width 12.9 Platelet Count 168 Mean Platelet Volume 11.3 H Neutrophils % 73.9 Lymphocytes % 12.9 L Monocytes % 9.6 Eosinophils % 2.9 Basophils % 0.3 Nucleated Red Blood Cells % 0.0 Neutrophils # 6.6 Lymphocytes # 1.2 Monocytes # 0.9 Eosinophils # 0.3 Basophils # 0.0 Nucleated Red Blood Cells # 0.0 Sodium Level 143 Potassium Level 3.6 Chloride Level 103 Carbon Dioxide Level 32 H Anion Gap 12 Blood Urea Nitrogen 25 H Creatinine 0.99 Glucose Level 115 Calcium Level 8.8 Phosphorus Level 3.4 Magnesium Level 2.2 Medications Medications Current Medications Lorazepam (Ativan) 0.5 mg Q6H PRN IV AGITATION/ANXIETY Last administered on 04:47; Admin Dose 0.5 MG; Start 02/21/17 at 23:00 Metoprolol Tartrate (Lopressor) 25 mg BID NGT Last administered on 02/27/17 09:09; Admin Dose 25 MG; Start 02/22/17 at 09:00 Aspirin (Aspirin) 81 mg DAILY NGT Last administered on 02/27/17 09:08; Admin Dose 81 MG; Start 02/22/17 at 09:00 Atorvastatin Calcium (Lipitor) 80 mg HS NGT Last administered on 02/26/17 22: 16; Admin Dose 80 MG; Start 02/22/17 at 21:00 Famotidine (Pepcid) 20 mg DAILY NGT Last administered on 02/27/17 09:08; Admin Dose 20 MG; Start 02/25/17 at 09:00 Enoxaparin Sodium (Lovenox) 30 mg BID SC Last administered on 02/27/17 09:13 ; Admin Dose 30 MG; Start 02/24/17 at 21:00 Acetaminophen (Tylenol Tab) 650 mg Q6H PRN PO PAIN AND OR ELEVATED TEMP Last administered on 02/24/17 22:08; Admin Dose 650 MG; Start 02/24/17 at 22:00 Levofloxacin (Levaquin) 750 mg Q48H PO ; Start 02/27/17 at 22:00 DEMIAN SULLIVAN Feb 27, 2017 16:02
[2017-02-27] MEDS ORDERED: FUROSEMIDE 20 MG TAB PO SCH (18:00)
[2017-02-27] MEDS ORDERED: LEVOFLOXACIN 750 MG TABLET PO SCH (22:00)
== END 2017-02-27 20:40 | DRG 871 ==
LOC: E/R 19:08 → ICU 21:53 → TEL 02-25 15:12
PROVIDERS: ADMIT Hospitalist; ATTEND Hospitalist
PROC: 5A1945Z Respiratory Ventilation, 24-96 Consecutive Hours (ICD-10-PCS; principal; 2017-02-21)
PROC: 0BH17EZ Insertion of Endotracheal Airway into Trachea, Via Natural or Artificial Opening (ICD-10-PCS; 2017-02-21)
DX: A41.01 Sepsis due to Methicillin susceptible Staphylococcus aureus (principal); I21.A1 Myocardial infarction type 2; J96.21 Acute and chronic respiratory failure with hypoxia; I50.23 Acute on chronic systolic (congestive) heart failure; J69.0 Pneumonitis due to inhalation of food and vomit; J18.9 Pneumonia, unspecified organism; I11.0 Hypertensive heart disease with heart failure; J44.0 Chronic obstructive pulmonary disease with (acute) lower respiratory infection; J81.0 Acute pulmonary edema; J96.22 Acute and chronic respiratory failure with hypercapnia; I69.359 Hemiplegia and hemiparesis following cerebral infarction affecting unspecified side; N39.0 Urinary tract infection, site not specified; D64.9 Anemia, unspecified; I35.0 Nonrheumatic aortic (valve) stenosis; I48.91 Unspecified atrial fibrillation; F03.90 Unspecified dementia, unspecified severity, without behavioral disturbance, psychotic disturbance, mood disturbance, and anxiety
CPT/HCPCS: 31500; 36600; 71010; 80048; 80053; 80061; 80202; 80307; 81001; 82550; 82553; 82803; 82962; 83605; 83735; 83880; 84100; 84484; 85025; 85610; 85730; 87040; 87081; 87086; 87400; 92610; 93005; 94002; 94003; 94644; 94660; 94770; 97110; 97163; 97530; J1940; J0131; J0282; J0692; J1650; J1956; J2060; J2250; J2543; J2930; J3010; J3370; J3475; J7030; J7040; J7042; J7050; J7060